=== PATIENT | female | born 1940 | race Caucasian/White ===

== ENCOUNTER 2016-06-17 07:46 | Inpatient (IN) ==
[2016-06-17] MEDS ORDERED: IPRATROPIUM/ALBUTEROL 3 ML AMPUL.NEB NEB ONE (08:10)
[2016-06-17] MEDS ORDERED: methylPREDNISolone SOD SUCC 125 MG/2 ML VIAL IV ONE (08:10)
--- NOTE | 2016-06-17 08:15 | Emergency Department Note ---
General Adult HPI - General Chief complaint: Shortness of Breath/Dyspnea Stated complaint: confusion, SOB Time Seen by Provider: 06/17/16 07:58 Source: patient Mode of arrival: EMS Limitations: altered mental status - History of Present Illness HPI Narrative: 76-year-old female with a historyof cold like symptoms. In by ambulance because she was hallucinating this morning she started seeing bugs on the grace. She's been seen by Liliane Solano for dizziness over the past month and has had CTs referral to the life assurance representative. Patient herself denies any signs or symptoms. She does have COPD. And technology administrator arrived, her sats were at 82%. O2 it went back up to 98%. She states that she does have COPD she is always short of breath. Does not notice anything different.. She complains of slight cough. The patient is afebrile. Having some wheezing. 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 Possible subclavian steal her. This was performed on 05/28 - Related Data Home Medications Medication Instructions Recorded Confirmed qkbbixqx-pnb-sztmd acid 0.4 1 tab PO DAILY 04/30/15 06/17/16 mg-lycopene 300 mcg-lutein 250 mcg tablet multivit with 1 tab PO QDAY tab 05/22/15 06/17/16 bezhtazj-cxkw-QG-lutein 8 mg iron-400 mcg-300 mcg tablet Propranolol [Inderal] 30 mg PO BID 06/17/16 06/17/16 Previous Rx's Medication Instructions Recorded aspirin 81 mg tablet,delayed 81 mg PO QDAY #30 tab 05/22/15 release beclomethasone dipropionate 80 160 mcg INHALATION BID #8.7 g 12/05/15 mcg/actuation aerosol inhaler gabapentin 400 mg capsule 400 mg PO TID #90 cap 04/03/16 diclofenac sodium 75 mg 75 mg PO BID #60 tab 04/23/16 tablet,delayed release potassium chloride ER 10 mEq 10 meq PO BID #60 cap 04/23/16 capsule,extended release torsemide 20 mg tablet 10 mg PO BID 30 Days 05/06/16 atorvastatin 20 mg tablet 20 mg PO QDAY #30 tab 05/21/16 Allergies Allergy/AdvReac Type Severity Reaction Status Date / Time cetirizine Allergy Unknown itching Verified 05/09/16 10:59 bee stings Allergy Unknown Anaphylaxis Uncoded 05/09/16 10:59 codeine sulfate Allergy Unknown Dizziness Uncoded 05/09/16 10:59 trees Allergy Unknown Sneezing Uncoded 05/09/16 10:59 wine Allergy Unknown Anaphylaxis Uncoded 05/09/16 10:59 Review of Systems Constitutional: Denies: fever, chills Eyes: Denies: eye pain ENT ED: Denies: ear pain Cardiovascular: Denies: chest pain Respiratory: Reports: cough, wheezes Gastrointestinal: Denies: abdominal pain Genitourinary: Denies: urgency Musculoskeletal: Denies: back pain Integumentary: Denies: rash Neurological: Denies: headache Psychiatric: Denies: anxiety Endocrine: Denies: fatigue Hematological/Lymphatic: Denies: easy bleeding Allergic/Immunologic: Denies: facial swelling Past Medical History - Past Medical History Medical history: Reports: other (Hyperlipidemia, PACs, lipidemia, retention, 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 low oxygen saturation with activity urinary incontinence) Surgical history ED: Reports: carotid endarterectomy (Appendectomy, cataract, gallbladder, splenectomy, bilateral salpingo-oophorectomy, shoulder surgery), other Family history: Reports: diabetes (father, mother), other family history ( glaucoma. Father, brother) - Social History smoking status: Former smoker Alcohol use: Reports: Rarely Drug use: Reports: none Physical Exam - General Limitations: altered mental status General appearance: alert - Head Head exam: atraumatic, normocephalic - Eye Eye exam: Present: normal appearance, PERRL - ENT ENT exam: normal exam, normal oropharynx - Neck Neck exam: Present: normal inspection, full ROM - Chest Chest inspection: Present: normal inspection - Respiratory Respiratory exam: Present: wheezes - Cardiovascular Cardiovascular exam: Present: regular rate, normal rhythm - Abdominal Exam Abdominal exam: Present: soft. Absent: distention, tenderness - Extremities Exam Extremities exam: Present: normal inspection, full ROM - Back Exam Back exam: Present: normal inspection, full ROM - Neurological Exam Neurological exam: Present: alert, CN II-XII intact - Psychiatric Psychiatric exam: Present: normal affect Course Vital Signs Temperature 97.8 F 06/17/16 07:52 Pulse Rate 93 H 06/17/16 07:52 Respiratory Rate 20 06/17/16 07:52 Blood Pressure 102/83 06/17/16 07:52 Pulse Oximetry (%) 93 06/17/16 07:52 Temperature 97.8 F 06/17/16 07:52 Pulse Rate 73 06/17/16 09:13 Respiratory Rate 20 06/17/16 09:13 Blood Pressure 103/88 06/17/16 09:13 Pulse Oximetry (%) 96 06/17/16 09:13 Medical Decision Making - MDM Narrative Medical decision making narrative: Patient's x-rays reveal restrictive lung disease secondary to her scoliosis. Negra does not use her O2, which she does have at home when she moves about it she runs in the 90s with O2. Dizziness. Workup revealed she is a 75% obstruction leading to subclavian steal . She was referred to Dr. Joy. Patient states she is unaware of this referral. [facility] office has been contacted and they are veriying the referral, patient is transferred to the care of Dr. Boni brooks at 03 07. - Lab Data Result diagrams: 06/17/16 08:15 06/17/16 08:15 Lab Results 06/17/16 06/17/16 Range/Units 08:15 08:15 WBC 6.6 (4.5-11.0) K/mcL RBC 4.19 (4.00-5.20) M/mcL Hgb 12.2 (12.0-15.0) g/dL Hct 38.4 (36.0-48.0) % POC Hct 40.0 (36.0-48.0) % MCV 91.7 (80.0-100.0) fL MCH 29.1 (26.0-34.0) pg MCHC 31.7 (31.0-36.0) g/dL RDW 14.2 (11.5-14.5) % Plt Count 289 (140-440) K/mcL MPV 7.8 (7.4-10.4) fL Gran % 62.3 (38.0-78.0) % Lymph % (Auto) 21.1 (15.5-49.0) % [place] % (Auto) 9.5 H (1.0-9.0) % Eos % (Auto) 6.5 (0.0-7.0) % Baso % (Auto) 0.6 (0.0-2.0) % Gran # 4.1 (1.8-8.0) K/mcL Lymph # 1.4 L (1.5-4.8) K/mcL [place] # 0.6 (0.1-0.9) K/mcL Eos # 0.4 (0.0-0.7) K/mcL Baso # 0 (0.0-0.3) K/mcL POC Sodium 144 (133-145) mmol/L Sodium 145 (133-145) mmol/L POC Potassium 3.5 (3.3-5.1) mmol/L Potassium 3.7 (3.3-5.1) mmol/L POC Chloride 98 (96-108) mmol/L Chloride 102 (96-108) mmol/L Carbon Dioxide 32 H (22-30) mmol/L POC Total CO2 33 H (22-30) mmol/L Anion Gap 11.0 (8-16) POC BUN 16 (8-23) mg/dl BUN 15 (8-23) mg/dl Creatinine 0.9 (0.6-1.1) mg/dl POC Creatinine 0.9 (0.6-1.1) mg/dl GFR Calculation 62 Glucose 101 (70-105) mg/dL POC Glucose 100 (70-105) mg/dL Calcium 9.1 (8.6-10.4) mg/dl POC WB Ioniz Calcium 1.18 (1.16-1.32) mmol/L Total Bilirubin 0.2 (0.0-1.0) mg/dL AST 21 (0-37) U/l ALT 17 (0-40) U/l Alkaline Phosphatase 108 (39-117) U/L NT-Pro-B Natriuret Pep 779.8 H (0-450) pg/ml Total Protein 6.7 (5.9-8.4) gm/dL Albumin 3.7 (3.2-5.2) gm/dL Globulin 3.0 (2.2-3.7) gm/dL Albumin/Globulin Ratio 1.2 (1.0-2.3) Disposition Condition: Good Referrals: Liliane Solano, DNP, CASING OPERATOR [Primary Care Provider] -
[2016-06-17 08:56] LABS: Basophils # (Auto) 0 K/mcL (0.0-0.3); Basophils % (Auto) 0.6 % (0.0-2.0); Eosinophils # (Auto) 0.4 K/mcL (0.0-0.7); Eosinophils % (Auto) 6.5 % (0.0-7.0); Granulocytes % (Auto) 62.3 % (38.0-78.0); Lymphocytes # (Auto) 1.4 K/mcL (1.5-4.8); Lymphocytes % (Auto) 21.1 % (15.5-49.0); Mean Cell Volume 91.7 fL (80.0-100.0); Mean Corpuscular HGB Conc 31.7 g/dL (31.0-36.0); Mean Corpuscular Hemoglobin 29.1 pg (26.0-34.0); Monocytes # (Auto) 0.6 K/mcL (0.1-0.9); Monocytes % (Auto) 9.5 % (1.0-9.0); Platelet Count 289 K/mcL (140-440); RBC 4.19 M/mcL (4.00-5.20); Red Cell Distribution Width 14.2 % (11.5-14.5)
[2016-06-17 09:18] LABS: ALT/SGPT 17 U/l (0-40); Albumin 3.7 gm/dL (3.2-5.2); Albumin/Globulin Ratio 1.2 (1.0-2.3); Alkaline Phosphatase 108 U/L (39-117); Blood Urea Nitrogen 15 mg/dl (8-23); proBNP 779.8 pg/ml (0-450)
--- NOTE | 2016-06-17 09:33 | XRay Report ---
HISTORY: Reason for Exam:CHEST PAIN FINDINGS: The thorax is severely distorted by a severe dextroscoliotic curvature. This is a chronic stable finding. The heart is mildly enlarged but magnified by portable AP technique. The heart has enlarged since prior exam done on 11/21/15. There may be a small infiltrate in left lower lobe, behind the left heart border. Right lung is grossly clear and the left upper lobe is normal. No pleural effusion is present and there is no pulmonary vascular congestion. IMPRESSION: Mild cardiomegaly Possible small left lower lobe infiltrate Interpreted and Authenticated by: Nicholas Griffin 06/17/16
[2016-06-17 09:50] LABS: Appearance,Urine CLEAR; Bilirubin,Urine NEG (NEG); Color,Urine STRAW; Glucose,Urine (UA) NEGATIVE (NEG); Leukocyte Esterase,Urine NEG /uL (NEG); Nitrate,Urine NEG (NEG); Protein,Urine NEG (NEG); Specific Gravity,Urine 1.006 (1.000-1.035); Urine Blood NEG mg/dL (<0.03); Urobilinogen,Urine NEG (NEG)
[2016-06-17] MEDS ORDERED: LEVOFLOXACIN 500 MG/100 ML BAG IV ONE (12:11)
--- NOTE | 2016-06-17 13:40 | Emergency Department Note ---
General Adult HPI - General Chief complaint: Shortness of Breath/Dyspnea Stated complaint: confusion, SOB Time Seen by Provider: 06/17/16 07:58 Source: patient Mode of arrival: EMS Limitations: altered mental status - Related Data Home Medications Medication Instructions Recorded Confirmed zplwyyte-xnr-yhtxa acid 0.4 1 tab PO DAILY 04/30/15 06/17/16 mg-lycopene 300 mcg-lutein 250 mcg tablet multivit with 1 tab PO QDAY tab 05/22/15 06/17/16 cmktdcax-pjzs-DK-lutein 8 mg iron-400 mcg-300 mcg tablet Propranolol [Inderal] 30 mg PO BID 06/17/16 06/17/16 Previous Rx's Medication Instructions Recorded aspirin 81 mg tablet,delayed 81 mg PO QDAY #30 tab 05/22/15 release beclomethasone dipropionate 80 160 mcg INHALATION BID #8.7 g 12/05/15 mcg/actuation aerosol inhaler gabapentin 400 mg capsule 400 mg PO TID #90 cap 04/03/16 diclofenac sodium 75 mg 75 mg PO BID #60 tab 04/23/16 tablet,delayed release potassium chloride ER 10 mEq 10 meq PO BID #60 cap 04/23/16 capsule,extended release torsemide 20 mg tablet 10 mg PO BID 30 Days 05/06/16 atorvastatin 20 mg tablet 20 mg PO QDAY #30 tab 05/21/16 Allergies Allergy/AdvReac Type Severity Reaction Status Date / Time cetirizine Allergy Unknown itching Verified 05/09/16 10:59 bee stings Allergy Unknown Anaphylaxis Uncoded 05/09/16 10:59 codeine sulfate Allergy Unknown Dizziness Uncoded 05/09/16 10:59 trees Allergy Unknown Sneezing Uncoded 05/09/16 10:59 wine Allergy Unknown Anaphylaxis Uncoded 05/09/16 10:59 Review of Systems Constitutional: Denies: fever, chills Eyes: Denies: eye pain ENT ED: Denies: ear pain Cardiovascular: Denies: chest pain Respiratory: Reports: cough, wheezes Gastrointestinal: Denies: abdominal pain Genitourinary: Denies: urgency Musculoskeletal: Denies: back pain Integumentary: Denies: rash Neurological: Denies: headache Psychiatric: Denies: anxiety Endocrine: Denies: fatigue Hematological/Lymphatic: Denies: easy bleeding Allergic/Immunologic: Denies: facial swelling Past Medical History - Past Medical History Medical history: Reports: other (Hyperlipidemia, PACs, lipidemia, retention, 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 low oxygen saturation with activity urinary incontinence) Surgical history ED: Reports: carotid endarterectomy (Appendectomy, cataract, gallbladder, splenectomy, bilateral salpingo-oophorectomy, shoulder surgery), other - Social History Alcohol use: Reports: Rarely Drug use: Reports: none Physical Exam - General Limitations: altered mental status General appearance: alert Course Vital Signs Temperature 97.8 F 06/17/16 07:52 Pulse Rate 93 H 06/17/16 07:52 Respiratory Rate 20 06/17/16 07:52 Blood Pressure 102/83 06/17/16 07:52 Pulse Oximetry (%) 93 06/17/16 07:52 Temperature 97.8 F 06/17/16 07:52 Pulse Rate 76 06/17/16 12:47 Respiratory Rate 21 06/17/16 12:47 Blood Pressure 120/106 06/17/16 12:47 Pulse Oximetry (%) 95 06/17/16 12:47 Medical Decision Making - [facility] Narrative Medical decision making narrative: I discussed this case with who thinks patient could be admitted here for pneumonia in and see him later for the left subclavian stenosis. - Lab Data Lab results reviewed: Yes I reviewed the patient's lab results. Result diagrams: 06/17/16 08:15 06/17/16 08:15 Lab Results 06/17/16 06/17/16 06/17/16 Range/Units 08:15 08:15 09:07 WBC 6.6 (4.5-11.0) K/mcL RBC 4.19 (4.00-5.20) M/mcL Hgb 12.2 (12.0-15.0) g/dL Hct 38.4 (36.0-48.0) % POC Hct 40.0 (36.0-48.0) % MCV 91.7 (80.0-100.0) fL MCH 29.1 (26.0-34.0) pg MCHC 31.7 (31.0-36.0) g/dL RDW 14.2 (11.5-14.5) % Plt Count 289 (140-440) K/mcL MPV 7.8 (7.4-10.4) fL Gran % 62.3 (38.0-78.0) % Lymph % (Auto) 21.1 (15.5-49.0) % [place] % (Auto) 9.5 H (1.0-9.0) % Eos % (Auto) 6.5 (0.0-7.0) % Baso % (Auto) 0.6 (0.0-2.0) % Gran # 4.1 (1.8-8.0) K/mcL Lymph # 1.4 L (1.5-4.8) K/mcL [place] # 0.6 (0.1-0.9) K/mcL Eos # 0.4 (0.0-0.7) K/mcL Baso # 0 (0.0-0.3) K/mcL VBG Lactic Acid (0.5-2.2) mmol/L POC Sodium 144 (133-145) mmol/L Sodium 145 (133-145) mmol/L POC Potassium 3.5 (3.3-5.1) mmol/L Potassium 3.7 (3.3-5.1) mmol/L POC Chloride 98 (96-108) mmol/L Chloride 102 (96-108) mmol/L Carbon Dioxide 32 H (22-30) mmol/L POC Total CO2 33 H (22-30) mmol/L Anion Gap 11.0 (8-16) POC BUN 16 (8-23) mg/dl BUN 15 (8-23) mg/dl Creatinine 0.9 (0.6-1.1) mg/dl POC Creatinine 0.9 (0.6-1.1) mg/dl GFR Calculation 62 Glucose 101 (70-105) mg/dL POC Glucose 100 (70-105) mg/dL Calcium 9.1 (8.6-10.4) mg/dl POC WB Ioniz Calcium 1.18 (1.16-1.32) mmol/L Total Bilirubin 0.2 (0.0-1.0) mg/dL AST 21 (0-37) U/l ALT 17 (0-40) U/l Alkaline Phosphatase 108 (39-117) U/L NT-Pro-B Natriuret Pep 779.8 H (0-450) pg/ml Total Protein 6.7 (5.9-8.4) gm/dL Albumin 3.7 (3.2-5.2) gm/dL Globulin 3.0 (2.2-3.7) gm/dL Albumin/Globulin Ratio 1.2 (1.0-2.3) Urine Color Straw Urine Appearance Clear Urine pH 6.0 (5.0-9.0) Ur Specific [place] 1.006 (1.000-1.035) Urine Protein Neg (NEG) mg/dL Urine Glucose (UA) Negative (NEG) mg/dL Urine Ketones Neg (NEG) mg/dL Urine Occult Blood Neg (<0.03) mg/dL Urine Nitrate Neg (NEG) Urine Bilirubin Neg (NEG) mg/dL Urine Urobilinogen Neg (NEG) mg/dL Ur Leukocyte Esterase Neg (NEG) /uL Ur Culture Indicated? No 06/17/16 Range/Units 09:46 WBC (4.5-11.0) K/mcL RBC (4.00-5.20) M/mcL Hgb (12.0-15.0) g/dL Hct (36.0-48.0) % POC Hct (36.0-48.0) % MCV (80.0-100.0) fL MCH (26.0-34.0) pg MCHC (31.0-36.0) g/dL RDW (11.5-14.5) % Plt Count (140-440) K/mcL MPV (7.4-10.4) fL Gran % (38.0-78.0) % Lymph % (Auto) (15.5-49.0) % [place] % (Auto) (1.0-9.0) % Eos % (Auto) (0.0-7.0) % Baso % (Auto) (0.0-2.0) % Gran # (1.8-8.0) K/mcL Lymph # (1.5-4.8) K/mcL [place] # (0.1-0.9) K/mcL Eos # (0.0-0.7) K/mcL Baso # (0.0-0.3) K/mcL VBG Lactic Acid 0.7 (0.5-2.2) mmol/L POC Sodium (133-145) mmol/L Sodium (133-145) mmol/L POC Potassium (3.3-5.1) mmol/L Potassium (3.3-5.1) mmol/L POC Chloride (96-108) mmol/L Chloride (96-108) mmol/L Carbon Dioxide (22-30) mmol/L POC Total CO2 (22-30) mmol/L Anion Gap (8-16) POC BUN (8-23) mg/dl BUN (8-23) mg/dl Creatinine (0.6-1.1) mg/dl POC Creatinine (0.6-1.1) mg/dl GFR Calculation Glucose (70-105) mg/dL POC Glucose (70-105) mg/dL Calcium (8.6-10.4) mg/dl POC WB Ioniz Calcium (1.16-1.32) mmol/L Total Bilirubin (0.0-1.0) mg/dL AST (0-37) U/l ALT (0-40) U/l Alkaline Phosphatase (39-117) U/L NT-Pro-B Natriuret Pep (0-450) pg/ml Total Protein (5.9-8.4) gm/dL Albumin (3.2-5.2) gm/dL Globulin (2.2-3.7) gm/dL Albumin/Globulin Ratio (1.0-2.3) Urine Color Urine Appearance Urine pH (5.0-9.0) Ur Specific [place] (1.000-1.035) Urine Protein (NEG) mg/dL Urine Glucose (UA) (NEG) mg/dL Urine Ketones (NEG) mg/dL Urine Occult Blood (<0.03) mg/dL Urine Nitrate (NEG) Urine Bilirubin (NEG) mg/dL Urine Urobilinogen (NEG) mg/dL Ur Leukocyte Esterase (NEG) /uL Ur Culture Indicated? - Radiology Data Radiology results reviewed: Yes I reviewed the patient's radiology results. ( radiologist thinks she may have a left lower lobe infiltrate.) Disposition Clinical Impression: Community acquired pneumonia Disposition: Xfer As Outpt/Obs ([facility]) Condition: Good Additional Instructions: Follow up with Dr. Joy tomorrow at 3:00pm. Immediate family should be there and bring all medication bottles in the original prescription bottles. Referrals: Liliane Solano, [place], STOCK RANCH SUPERVISOR [Primary Care Provider] - Time of Disposition: 13:40
--- NOTE | 2016-06-17 14:54 | Internal Med History&Physical ---
Medical - H&P: HPI Patient information: Note initiated : 06/17/16 at 2:45 pm Service Date, if different from initiated Date: [] Patient: Alice Maradiaga 76 y/o F admitted on for Confusion, SOB. Chief Complaint: [] Chief complaint: Altered Mental Status/ Cough History of present illness: Ms. 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 History given by her daughters and the patient. The patient was not feeling well yesterday, cough x 1 day, yellowish greenish sputum, no fever or chills, not sure if any sick contacts, She thought her allergies were kicking in and therefore she got some anti histaminics and took some of that, she also supposedly too some medications from her significant other for cough. Initially she noted she took 4 25mg diphenhydramine in this morning, and 2 afternoon. later she noted she took 2 in AM and 2 in PM. This AM the patient was hallucinating, and seeing things, she was seeing strangers in her house, and she could not speak with them but they seemed to walk behind her. She called 911 for same. The patient therefore ended up in the Er. The patient in the ER underwent labs which were unremarkable, X ray chest was suggestive of left lung pna, and she was requiring 4 L oxygen to maintain her oxygenation >90, (she does not use oxygen at home). She was therefore admitted to the hospital for further management. - Constitutional Constitutional: Present: frequent falls. Absent: chills, fever(s) - EENT Eyes: Present: other visual disturbances. Absent: loss of vision Nose, mouth and throat: Present: dizziness. Absent: abnormal hearing, disequilibrium - Cardiovascular Cardiovascular: Absent: chest pain, chest pain at rest, palpatations - Respiratory Respiratory: Present: cough, excessive phlegm production, change in phlegm color. Absent: dyspnea on exertion, wheezing, chest congestion - Gastrointestinal Gastrointestinal: Absent: abdominal pain, nausea, vomiting - Genitourinary Genitourinary: Absent: hematuria, urinary hesitancy, urinary incontinence, urinary urgency - Musculoskeletal Musculoskeletal: Present: back pain - Integumentary Integumentary: Absent: unusual bruising, wounds - Neurological Neurological: Present: confusion, dizziness. Absent: focal weakness, frequent falls, headache(s), syncope, vertigo - Psychiatric Psychiatric: Present: behavioral changes, visual hallucinations - Endocrine Endocrine: Absent: polydipsia, polyphagia, polyuria Medical - H&P: PMH Medical history: Medical History Community acquired pneumonia (Acute) Abnormal breast exam (Acute) Irregular heart rhythm (Acute) Low oxygen saturation (Acute) Allergic rhinitis (Chronic) Back pain (Chronic) Diverticulosis of colon (Chronic) History of ECG (Chronic 05/22/15) Hyperlipidemia (Chronic) Hypertension, essential (Chronic) Lung disease (Chronic) Mixed incontinence, 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 Medical - H&P: Meds Home Medications Medication Instructions Recorded Confirmed Type cooaepwu-erz-woqpp acid 0.4 1 tab PO DAILY 04/30/15 06/17/16 History mg-lycopene 300 mcg-lutein 250 mcg tablet multivit with 1 tab PO QDAY tab 05/22/15 06/17/16 History lueanjbi-fyng-TI-lutein 8 mg iron-400 mcg-300 mcg tablet Propranolol [Inderal] 30 mg PO BID 06/17/16 06/17/16 History Allergies Allergy/AdvReac Type Severity Reaction Status Date / Time cetirizine Allergy Unknown itching Verified 05/09/16 10:59 bee stings Allergy Unknown Anaphylaxis Uncoded 05/09/16 10:59 codeine sulfate Allergy Unknown Dizziness Uncoded 05/09/16 10:59 trees Allergy Unknown Sneezing Uncoded 05/09/16 10:59 wine Allergy Unknown Anaphylaxis Uncoded 05/09/16 10:59 Medical - H&P: Exam - Constitutional Vitals: Temp Pulse Resp BP Pulse Ox 97.8 F 76 16 96/72 97 06/17/16 07:52 06/17/16 13:54 06/17/16 13:54 06/17/16 13:54 06/17/16 13:54 General appearance: average body habitus, cooperative, no acute distress - Head Head exam: Present: atraumatic, normal inspection, normocephalic - Eye Eye exam: Present: EOMI, normal appearance, PERRL. Absent: conjunctival injection, periorbital swelling, periorbital tenderness, scleral icterus - Neck Neck exam: Present: normal inspection - Respiratory Respiratory exam: Present: normal respiratory exam. Absent: accessory muscle use, rhonchi, stridor, wheezes (scoliosis severe ) - Cardiovascular Cardiovascular exam: Present: normal rate and rhythm, +S1, +S2. Absent: gallop , rubs - GI/Abdominal GI/Abdominal exam: Present: normal bowel sounds, soft. Absent: rigid, tenderness - Neurological Exam Neurological exam: Present: alert, CN II-XII intact, oriented X3. Absent: motor sensory deficit - Expanded Psychiatric Exam Focused psych exam: Present: restlessness - Skin Skin exam: Present: warm. Absent: rash Medical - H&P: Reslt - Labs CBC & Chem 7: 06/17/16 08:15 06/17/16 08:15 Labs: Short CBC 06/17/16 Range/Units 08:15 WBC 6.6 (4.5-11.0) K/mcL Hgb 12.2 (12.0-15.0) g/dL Hct 38.4 (36.0-48.0) % Plt Count 289 (140-440) K/mcL BMP 06/17/16 08:15 Sodium 145 Potassium 3.7 Chloride 102 Carbon Dioxide 32 H BUN 15 Creatinine 0.9 Glucose 101 Calcium 9.1 Liver Function 06/17/16 Range/Units 08:15 Total Bilirubin 0.2 (0.0-1.0) mg/dL AST 21 (0-37) U/l ALT 17 (0-40) U/l Alkaline Phosphatase 108 (39-117) U/L Albumin 3.7 (3.2-5.2) gm/dL Urine 06/17/16 Range/Units 09:07 Urine Color Straw Urine Appearance Clear Urine pH 6.0 (5.0-9.0) Ur Specific [place] 1.006 (1.000-1.035) Urine Protein Neg (NEG) mg/dL Urine Glucose (UA) Negative (NEG) mg/dL - EKG Data -: EKG Reviewed by Myself (sinus, non specific ST wave changes, no significant change since 05/22) - EKG Data When compared to previous EKG: there is no significant change Medical - H&P: A/P (1) Hallucination, visual Current visit: Yes Status: Acute hallucinations/ confusion, etiology multifactorial for now likely related to pneumonia, but could also be taking excessive cough medication and diphenhydramine. for now will monitor CT head. Urine toxicology. not a heavy etoh consumer. (2) Acute respiratory failure with hypoxia Current visit: Yes Status: Acute due to pna, her socoliosis causes severe restrictive disease, on oxygen supplementation. Presently on 4 L nc does not use oxygen at home Duonebs q 4 hrs Incentive spirometery (3) Subclavian steal syndrome Current visit: Yes Status: Acute pt has dizziness, for which she is being worked up left subclavian steal is a likely etiology ? supposed to be seen by IR tomorrow for stenting? (4) Community acquired pneumonia Current visit: Yes Status: Acute IV rocephin and zithromax monitor on tele blood cultures sent await same Diet regular, cardiac DVT - heparin sq Plan to resume all home medications. Hold propranolol and torsemide given low bp in the ER. (5) Dizziness Current visit: No Status: Acute due to subclavian steal
[2016-06-17] MEDS ORDERED: IOPAMIDOL 100 ML BOTTLE IJ ONE (15:32)
[2016-06-17 15:55] LABS: Amphetamine Screen,Urine NONE DETECTED (NONDETECTED); Benzodiazepines Screen,Urine NONE DETECTED (NONDETECTED); Cocaine Screen,Urine NONE DETECTED (NONDETECTED); Opiate Screen,Urine NONE DETECTED (NONDETECTED)
[2016-06-17] MEDS ORDERED: ONDANSETRON 4 MG/2 ML VIAL IV PRN (16:04)
[2016-06-17] MEDS ORDERED: FLEETS ADULT ENEMA PR PRN (16:04)
[2016-06-17] MEDS ORDERED: MAGNESIUM HYDROXIDE 30 ML ORAL.SUSP PO PRN (16:04)
[2016-06-17] MEDS ORDERED: BISACODYL 5 MG TABLET PO PRN (16:04)
[2016-06-17] MEDS ORDERED: NALOXONE HCL 0.4 MG/ML VIAL IV PRN (16:04)
[2016-06-17] MEDS: cefTRIAXone 1 GM in DEXTROSE 5% IN WATER 50 ML IV SCH (17:00)
[2016-06-17] MEDS: AZITHROMYCIN 500 MG in DEXTROSE 5% IN WATER 250 ML IV SCH (18:00)
--- NOTE | 2016-06-17 18:00 | Cat Scan Report ---
History: Increasing confusion Findings: The brain was imaged without contrast at 2.5 mm intervals. There is mild generalized cerebral atrophy. The lateral and third ventricles are mildly dilated. Fourth ventricle is normal in size. There is generalized atrophy, predominantly involving the frontal and temporal lobes. The ventricular dilatation is somewhat out of proportion to the underlying atrophy. New the foramen of [place]ick[place] in the left lateral ventricle there is a 2 x 4 mm calcification along the anterior border left thalamus. This is not causing obstruction of the lateral ventricle. Calcification is a chronic stable finding and probably incidental. There is no intracranial hemorrhage, edema or mass effect. No abnormal extra-axial fluid collection is present. There is mucosal thickening along the grace of many of the ethmoid air cells bilaterally due to sinusitis. Impression: Borderline hydrocephalus Frontal and temporal lobe atrophy Ethmoid sinusitis Interpreted and Authenticated by: Nicholas Griffin 06/17/16
[2016-06-17] MEDS: 0.9 % SODIUM CHLORIDE 1,000 ML IV SCH (18:51)
[2016-06-17] MEDS: IPRATROPIUM/ALBUTEROL 3 ML AMPUL.NEB NEB SCH ×3 (19:07→22:38)
[2016-06-17] MEDS: POTASSIUM CHLORIDE 10 MEQ TABLET PO SCH (20:01)
[2016-06-17] MEDS: GABAPENTIN 300 MG CAPSULE PO SCH ×2 (20:01→20:10)
[2016-06-17] MEDS: ACETAMINOPHEN 325 MG TABLET PO PRN (20:06)
[2016-06-17] MEDS: HEPARIN 5,000 UNIT/ML VIAL SQ SCH (20:06)
[2016-06-17] MEDS: BECLOMETHASONE DIPROPIONATE 160 MCG INH SCH (20:07)
[2016-06-17] MEDS ORDERED: GABAPENTIN 100 MG CAPSULE PO ONE (20:21)
[2016-06-18] MEDS ORDERED: 0.9 % SODIUM CHLORIDE 500 ML IV ONE (00:20)
[2016-06-18] MEDS ORDERED: POTASSIUM CHLORIDE 20 MEQ, MAGNESIUM SULFATE 16.24 MEQ, THIAMINE 100 MG, MVI, ADULT NO.... IV SCH (02:15)
[2016-06-18] MEDS: 0.9 % SODIUM CHLORIDE 1,000 ML IV SCH (02:36)
[2016-06-18] MEDS: IPRATROPIUM/ALBUTEROL 3 ML AMPUL.NEB NEB SCH ×6 (02:36→22:46)
[2016-06-18] MEDS: ACETAMINOPHEN 325 MG TABLET PO PRN ×2 (02:41→17:25)
[2016-06-18] MEDS ORDERED: POTASSIUM CHLORIDE 20 MEQ/10 ML VIAL IV ONE (02:43)
[2016-06-18] MEDS ORDERED: MAGNESIUM SULFATE 8.12 MEQ/2 ML VIAL ONE (02:43)
[2016-06-18 06:33] LABS: Mean Cell Volume 90.9 fL (80.0-100.0); Mean Corpuscular HGB Conc 32.1 g/dL (31.0-36.0); Mean Corpuscular Hemoglobin 29.2 pg (26.0-34.0); Platelet Count 243 K/mcL (140-440); RBC 4.04 M/mcL (4.00-5.20); Red Cell Distribution Width 13.7 % (11.5-14.5)
[2016-06-18 06:52] LABS: ALT/SGPT 14 U/l (0-40); Albumin 3.4 gm/dL (3.2-5.2); Albumin/Globulin Ratio 1.5 (1.0-2.3); Alkaline Phosphatase 89 U/L (39-117); Bilirubin,Direct < 0.2 mg/dL (0.0-0.3); Blood Urea Nitrogen 9 mg/dl (8-23); Gamma Glutamyl Transpeptidase 8 U/L (5-36); Magnesium 2.4 mg/dL (1.6-2.5); Phosphorous 3.2 mg/dL (2.7-4.5); Uric Acid 3.3 mg/dL (2.5-8.0)
[2016-06-18] MEDS: HEPARIN 5,000 UNIT/ML VIAL SQ SCH ×2 (07:39→20:19)
[2016-06-18] MEDS: GABAPENTIN 400 MG CAPSULE PO SCH ×3 (07:39→20:19)
[2016-06-18] MEDS: ASPIRIN 81 MG TAB.CHEW PO SCH (07:39)
[2016-06-18] MEDS: cefTRIAXone 1 GM in DEXTROSE 5% IN WATER 50 ML IV SCH (08:16)
[2016-06-18 08:20] LABS: Lymphocytes % 23 % (15-49); Monocytes % (Manual) 4 % (1-9); Platelet Estimate NORMAL (NORMAL); RBC Morphology ABNORMAL (NORMAL); Segmented Neutrophils % 72 % (38-78)
--- NOTE | 2016-06-18 09:29 | Internal Med Progress Note ---
Medical - PN: Subj Patient information: Note initiated : 06/18/16 at 9:26 am Service Date, if different from initiated Date: [] Patient: Alice Maradiaga 76 y/o F admitted on 06/17/16 for Confusion, SOB. Chief Complaint: [] Interval history: The patient seen examined this AM, Sitting comfortably in he chair, Denies any acute issues, but looks better than y esterday She is still hallucinating, this AM noted have seen crawling bugs in the ceiling , when she woke up, but later they were gone, no other auditory hallucinations Overnight she was hypotensive, with normal HR, the patient also remained asymptomatic, during this episodes, This am too she was hypotensive while sitting in the chair, asymptomatic. She received 500 cc bolus, and a banana bag is running to treat any underlying thiamine def. I have reviwed the CT head, which shows some borderline hydrocephalus, storm atrophy, Microbiology is negative Utox is negative Labs unremakrable. Pertinent ROS: Denies chest pain, denies palpitations, dizziness or syncope no cough or shortness of breath no abdominal pain, nausea or vomiting. still has hallucinations, but no delusions. - Constitutional Vitals: Vital Signs Temp Pulse Resp BP Pulse Ox 97.3 F L 84 18 72/54 96 06/18/16 03:41 06/18/16 07:18 06/18/16 07:18 06/18/16 05:55 06/18/16 07:25 Period Temp Pulse Resp BP Sys/Bess Pulse Ox Last 24 Hr 97.3 F-98.9 F 76-98 16-20 72-112/53-82 94-98 Intake and Output 06/17/16 06/18/16 06/18/16 21:59 05:59 13:59 Intake Total 450 / 450 1135 / 1135 Output Total 103 / 103 102 / 102 Balance 347 / 347 1033 / 1033 Weight 144 lb 11.2 oz Intake & Output: Intake & Output 06/17/16 06/18/16 06/18/16 21:59 05:59 13:59 Intake Total 450 / 450 1135 / 1135 Output Total 103 / 103 102 / 102 Balance 347 / 347 1033 / 1033 Weight 144 lb 11.2 oz Intake: IV 50 / 50 775 / 775 Sodium Chloride 0.9% / 5 000 ml @ 100 mls/hr IV . Q10H [facility]ARG[facility]ITA Rx#:[id number] Dextrose 5% in Water 50 50 / 50 ml @ 100 mls/hr IV DAILY MARGARITA with Rocephin 1 gm Rx #:[id number] Oral 400 / 400 360 / 360 Output: Void Amount 100 / 100 100 / 100 # of times incontinent of 3 / 3 2 / 2 urine Other: # Voids 1 # Bowel Movements 1 General appearance: cooperative, no acute distress - Head Head exam: Present: atraumatic, normal inspection, normocephalic - Eye Eye exam: Present: PERRL. Absent: periorbital tenderness, scleral icterus - Neck Neck exam: Present: normal inspection - Respiratory Respiratory exam: Present: normal respiratory exam Additional comments: mild wheeze, bibasilar mild crackles. - Cardiovascular Cardiovascular exam: Present: normal rate and rhythm, +S1, +S2, systolic murmur - GI/Abdominal GI/Abdominal exam: Present: normal bowel sounds, soft. Absent: rigid - Neurological Exam Neurological exam: Present: alert, CN II-XII intact, oriented X3. Absent: motor sensory deficit - Psychiatric Psychiatric exam: Absent: agitated, anxious - Skin Skin exam: Present: warm. Absent: rash Medical - PN: Obj Da - Labs CBC & Chem 7: 06/18/16 04:30 06/18/16 04:35 Labs: Abnormal Lab Results 06/18/16 06/18/16 04:35 04:30 Hgb 11.8 L Polychromasia 1+ A Calcium 8.2 L Total Protein 5.6 L Meds: Medications Acetaminophen (Tylenol) 650 mg PO Q6HP PRN PRN Reason: PAIN/FEVER > 101 Last Admin: 06/18/16 02:41 Dose: 650 mg Albuterol/Ipratropium (Duoneb) 3 ml NEB Q4HRT [facility] Last Admin: 06/18/16 07:18 Dose: 3 ml Aspirin (Aspirin) 81 mg PO DAILY [facility] Last Admin: 06/18/16 07:39 Dose: 81 mg Atorvastatin Calcium (Lipitor) 20 mg PO QDAY [facility] Bisacodyl (Dulcolax) 10 mg PO DAILYP PRN PRN Reason: Constipation Gabapentin (Neurontin) 400 mg PO TID [facility] Last Admin: 06/18/16 07:39 Dose: 400 mg Heparin Sodium (Porcine) (Heparin) 5,000 unit SQ Q12 [facility] Last Admin: 06/18/16 07:39 Dose: 5,000 unit Azithromycin 500 mg/ Dextrose 250 mls @ 250 mls/hr IV DAILY [facility] Stop: 06/19/16 09:59 Last Admin: 06/17/16 18:00 Dose: 250 mls/hr Sodium Chloride (Sodium Chloride 0.9%) 1,000 mls @ 100 mls/hr IV .Q10H [facility] Last Admin: 06/18/16 02:36 Dose: 100 mls/hr Ceftriaxone Sodium 1 gm/ (Dextrose) 50 mls @ 100 mls/hr IV DAILY [facility] Last Admin: 06/18/16 08:16 Dose: 100 mls/hr Potassium Chloride 20 meq/Magnesium Sulfate 16.24 meq/Thiamine HCl 100 mg/ Multivitamins/Minerals 10 ml/Sodium Chloride 1,025 mls @ 125 mls/hr IV .Q8H12M [facility] Stop: 06/18/16 10:26 Last Admin: 06/18/16 02:37 Dose: 125 mls/hr Iron Carb/Multivit/[place]/Folic Acid (Multivitamin W/Minerals) 1 tab PO DAILY [facility] Magnesium Hydroxide (Milk Of Magnesia) 30 ml PO DAILYP PRN PRN Reason: Constipation Naloxone HCl (Narcan) 0.1 mg IV Q2MIN PRN PRN Reason: Opiate Reversal Ondansetron HCl (Zofran) 4 mg IV Q4HP PRN PRN Reason: Nausea And Vomiting Beclomethasone (Dipropionate 160 Mcg) 1 dose INH BID [facility] Last Admin: 06/17/16 20:07 Dose: Not Given [facility] Last Admin: 06/17/16 20:01 Dose: Not Given Sodium Biphosphate/Sodium Phosphate (Fleets Adult) 1 dose PA Q3DP PRN PRN Reason: Constipation Medical - PN: A/P - Time Spent With Patient Total time spent is greater than 50% in coordination of care (as documented) at patient's floor/unit and/or counseling patient: (1) Hallucination, visual Status: Acute Assessment and plan: likely from medication use, vs due to infection Improving clinically Patient CT head is negative She has received thiamine, will start on po thiamine too, Continue to monitor Current Visit: Yes (2) Acute respiratory failure with hypoxia Status: Acute Assessment and plan: Still needs oxygen incentive spirometer continue with IV antibiotics for pneumonia. Current Visit: Yes (3) Subclavian steal syndrome Status: Acute Assessment and plan: Patent dizziness due to subclavian steal syndrome. Current Visit: Yes (4) Community acquired pneumonia Status: Acute Assessment and plan: Clinically improving, Treat with IV aBX microbiology neg Current Visit: Yes (5) Hypotension Status: Acute Assessment and plan: Bl;ood pressure noted to be low overnight received some IV fluids On further reviwe this AM it was noted that the bp is been taken on the left arm where she has significant subcliavin steal,/ stenois repeat bp on the right side is normal d/c all iv fluids at this time besides banana bag. Current Visit: No Medical - PN: Qual - Stroke Symptom Onset Unknown: No - VTE Deep Vein Thrombosis/Pulmonary Embolism Present on Admission: No
[2016-06-18] MEDS: AZITHROMYCIN 500 MG in DEXTROSE 5% IN WATER 250 ML IV SCH (09:30)
[2016-06-18] MEDS: MULTIVIT,THER IRON,CA,FA & MIN 1 TABLET PO SCH (10:01)
[2016-06-18] MEDS: POTASSIUM CHLORIDE 10 MEQ TABLET PO SCH ×2 (10:01→17:06)
[2016-06-18 10:06] LABS: Cortisol,AM 4.4 ug/dl (6.2-19.4)
[2016-06-18] MEDS: ATORVASTATIN 20 MG TABLET PO SCH (10:07)
[2016-06-18] MEDS: BECLOMETHASONE DIPROPIONATE 160 MCG INH SCH (10:12)
[2016-06-18] MEDS: BECLOMETHASONE DIPROPIONATE 40MCG INHALER INH SCH ×2 (13:00→20:19)
[2016-06-19] MEDS: ACETAMINOPHEN 325 MG TABLET PO PRN ×3 (00:36→20:34)
[2016-06-19] MEDS: IPRATROPIUM/ALBUTEROL 3 ML AMPUL.NEB NEB SCH ×7 (02:59→23:08)
[2016-06-19 07:02] LABS: Mean Cell Volume 92.4 fL (80.0-100.0); Mean Corpuscular HGB Conc 30.6 g/dL (31.0-36.0); Mean Corpuscular Hemoglobin 28.3 pg (26.0-34.0); Platelet Count 277 K/mcL (140-440); RBC 4.08 M/mcL (4.00-5.20); Red Cell Distribution Width 14.8 % (11.5-14.5)
[2016-06-19 07:28] LABS: ALT/SGPT 14 U/l (0-40); Albumin 3.5 gm/dL (3.2-5.2); Albumin/Globulin Ratio 1.5 (1.0-2.3); Alkaline Phosphatase 91 U/L (39-117); Bilirubin,Direct < 0.2 mg/dL (0.0-0.3); Blood Urea Nitrogen 9 mg/dl (8-23); Gamma Glutamyl Transpeptidase 8 U/L (5-36); Magnesium 2.4 mg/dL (1.6-2.5); Phosphorous 1.7 mg/dL (2.7-4.5); Uric Acid 2.6 mg/dL (2.5-8.0)
[2016-06-19 08:12] LABS: Band Neutrophils % 2 % (0-10); Lymphocytes % 16 % (15-49); Monocytes % (Manual) 1 % (1-9); Platelet Estimate NORMAL (NORMAL); RBC Morphology NORMAL (NORMAL); Segmented Neutrophils % 81 % (38-78)
[2016-06-19] MEDS: AZITHROMYCIN 500 MG in DEXTROSE 5% IN WATER 250 ML IV SCH (08:46)
[2016-06-19] MEDS: cefTRIAXone 1 GM in DEXTROSE 5% IN WATER 50 ML IV SCH (08:46)
--- NOTE | 2016-06-19 08:46 | XRay Report ---
HISTORY: Reason for Exam:shortness of breath FINDINGS: The thorax is severely deformed by the scoliotic curvature. This makes evaluation of lung parenchyma limited. However, there appear to be mild infiltrates in both lung bases. The right lower lobe is becoming more consolidated since 06/17/16. There is been little change in the left lung. Heart may be mildly enlarged. IMPRESSION: Small bibasilar infiltrates, becoming worse on the right side Interpreted and Authenticated by: Nicholas Griffin 06/19/16
[2016-06-19] MEDS: ATORVASTATIN 20 MG TABLET PO SCH (08:55)
[2016-06-19] MEDS: ASPIRIN 81 MG TAB.CHEW PO SCH (08:55)
[2016-06-19] MEDS: MULTIVIT,THER IRON,CA,FA & MIN 1 TABLET PO SCH (08:55)
[2016-06-19] MEDS: POTASSIUM CHLORIDE 10 MEQ TABLET PO SCH ×2 (08:55→18:21)
[2016-06-19] MEDS: HEPARIN 5,000 UNIT/ML VIAL SQ SCH ×2 (08:55→20:33)
[2016-06-19] MEDS: GABAPENTIN 400 MG CAPSULE PO SCH ×3 (08:56→20:35)
[2016-06-19] MEDS: BECLOMETHASONE DIPROPIONATE 40MCG INHALER INH SCH ×2 (08:57→20:37)
[2016-06-19] MEDS ORDERED: VANCOMYCIN PER PHARMACY IV ONE (08:58)
[2016-06-19] MEDS ORDERED: VANCOMYCIN 1,000 MG in 0.9 % SODIUM CHLORIDE 250 ML IV SCH (09:00)
[2016-06-19] MEDS ORDERED: NEUTRA PHOS 1 PACKET PO SCH (09:00)
[2016-06-19] MEDS ORDERED: FUROSEMIDE 20 MG/2 ML VIAL IV ONE (09:03)
[2016-06-19] MEDS: PIPERACILLIN SODIUM/TAZOBACTAM 3.375 GM in DEXTROSE 5% IN WATER 50 ML IV SCH ×3 (09:38→18:21)
[2016-06-19] MEDS ORDERED: methylPREDNISolone SOD SUCC 40 MG/ML VIAL IV SCH (16:45)
--- NOTE | 2016-06-19 16:46 | Event Note ---
Called by nursing to note patient has sudden deterioration in her condition patient has worsening shortness of breath, tachycardia, hypoxia and wheezing. patient evalauted, noted to be tachypoenic, with poor air entry on both lungs. She also ahs chest tightness. Patient likely has copd exacerbation Duonebs stat/ and start on IV steroids patient will likely need bipap given poor air entry and rapid progression of hypoxia, start with setting of 12/6, fio2 40%, get ekg, troponin, myogobin and CT angio to r/o PE. pt is on heparin for DVT prophylasxis. Will reassess soon.
[2016-06-19] MEDS ORDERED: MAGNESIUM SULFATE 2 GM/50 ML BAG IV ONE (17:11)
--- NOTE | 2016-06-19 17:40 | Internal Med Progress Note ---
Medical - PN: Subj Patient information: Note initiated : 06/19/16 at 5:38 pm Service Date, if different from initiated Date: [] Patient: Alice Maradiaga 76 y/o F admitted on 06/17/16 for Confusion, SOB/ Pneumonia. Chief Complaint: [] Interval history: patient seen examined, No acute overnight events, she was doing well this morning, but feeling puffed up, she was short of breath by lying flat on the bed, but sitting up was helping her, no change in her oxygen requirements She denies any chest pains, palpitations, dizziness, headache, abdominal pain, nausae or vomiting. her hallucinations had resolved. given the change in her respiratory status, X ray chest was obtained, which showed worsening infiltrates, the patient antibiotics were changed to vancomycin and zosyn The patient was doing well during the day time, when in evening she had deterioration in her condition she had shortness of breath this pm, with poor air entry, wheezing, tachypnea. The patient also noted chest tightness. her RR was 28-30, Tachycardic to 120, Hypoxic to upto 40% on room air, exam showed poor air entry and storm exp wheezing. EKG done did not show ST elevations, did have t wave flipping in the Ant leads, pt does not endorse chest pains. Troponin is pending, Duonebs given, IV steroids started, IV mag suphage given Pt needing bipap to ventilate, present setting of 18/8, fio2 45%, she is drawing tidal volume of approximately 200-350 at this time. After initiation of bipap she seems to have improved, and is calmer. Given the sudden onset of the symptoms, tachycardia and hypoxia, CTA ordered, results pending. Critical care services rendered, spent 40 mins reviewing chart, managing bipap ventilation, coordinating care. Pertinent ROS: sob and wheezing noted no chest pain or palpitations no dizziness, no headaches. - Constitutional Vitals: Vital Signs Temp Pulse Resp BP Pulse Ox 99.6 F 110 H 24 134/80 88 L 06/19/16 16:00 06/19/16 16:00 06/19/16 16:00 06/19/16 16:00 06/19/16 16:00 Period Temp Pulse Resp BP Sys/Bess Pulse Ox Last 24 Hr 97.7 F-99.6 F 89-110 10-24 92-136/43-80 88-95 Intake and Output 06/19/16 06/19/16 06/19/16 05:59 13:59 21:59 Intake Total 840 / 840 1160 / 1160 250 / 250 Output Total 200 / 200 902 / 902 200 / 200 Balance 640 / 640 258 / 258 50 / 50 Intake & Output: Intake & Output 06/19/16 06/19/16 06/19/16 05:59 13:59 21:59 Intake Total 840 / 840 1160 / 1160 250 / 250 Output Total 200 / 200 902 / 902 200 / 200 Balance 640 / 640 258 / 258 50 / 50 Intake: IV 600 / 600 50 / 50 Dextrose 5% in Water 250 250 / 250 ml @ 250 mls/hr IV DAILY [facility] with Zithromax 500 mg Rx#:[id number] Dextrose 5% in Water 50 50 / 50 50 / 50 ml @ 100 mls/hr IV Q6 [facility] with Zosyn 3.375 gm Rx#: [id number] Sodium Chloride 0.9% 250 250 / 250 ml @ 250 mls/hr IV DAILY [facility] with Vancomycin 1,000 mg Rx#:[id number] Dextrose 5% in Water 50 50 / 50 ml @ 100 mls/hr IV DAILY [facility]ARG[facility] with Rocephin 1 gm Rx #:[id number] Oral 840 / 840 560 / 560 200 / 200 Output: Void Amount 200 / 200 900 / 900 200 / 200 # of times incontinent of 2 / 2 urine Other: # Bowel Movements 1 - Head Head exam: Present: atraumatic, normal inspection - Eye Eye exam: Present: PERRL. Absent: periorbital swelling, periorbital tenderness , scleral icterus - ENT ENT exam: Present: mucous membranes moist - Neck Neck exam: Present: full ROM, normal inspection - Respiratory Additional comments: air entry poor on both sides patient tachypenic storm wheezing. no significant crackles noted. - Cardiovascular Cardiovascular exam: Present: normal rate and rhythm, +S1, +S2, tachycardia - GI/Abdominal GI/Abdominal exam: Present: normal bowel sounds, soft. Absent: rigid, tenderness - Extremities Exam Extremities exam: Present: Foot pink and warm, neurovascular intact - Neurological Exam Neurological exam: Present: alert, CN II-XII intact, oriented X3. Absent: motor sensory deficit - Skin Skin exam: Present: intact, warm. Absent: rash, urticaria Medical - PN: Obj Da - Labs CBC & Chem 7: 06/19/16 04:35 06/19/16 04:35 Labs: Abnormal Lab Results 06/19/16 06/19/16 06/18/16 04:35 04:35 09:10 Hgb 11.6 L MCHC 30.6 L RDW 14.8 H Seg Neutrophils % 81 H Polychromasia Calcium 8.5 L Phosphorus 1.7 L Total Protein Cortisol AM Sample 4.4 L 06/18/16 06/18/16 04:35 04:30 Hgb 11.8 L MCHC RDW Seg Neutrophils % Polychromasia 1+ A Calcium 8.2 L Phosphorus Total Protein 5.6 L Cortisol AM Sample Meds: Medications Acetaminophen (Tylenol) 650 mg PO Q6HP PRN PRN Reason: PAIN/FEVER > 101 Last Admin: 06/19/16 04:24 Dose: 650 mg Albuterol/Ipratropium (Duoneb) 3 ml NEB Q4HRT [facility] Last Admin: 06/19/16 17:13 Dose: 3 ml Aspirin (Aspirin) 81 mg PO DAILY [facility] Last Admin: 06/19/16 08:55 Dose: 81 mg Atorvastatin Calcium (Lipitor) 20 mg PO QDAY [facility] Last Admin: 06/19/16 08:55 Dose: 20 mg Beclomethasone Dipropionate (Qvar 40) 4 puff INH BID [facility] Last Admin: 06/19/16 08:57 Dose: 4 puff Bisacodyl (Dulcolax) 10 mg PO DAILYP PRN PRN Reason: Constipation Gabapentin (Neurontin) 400 mg PO TID [facility] Last Admin: 06/19/16 17:13 Dose: Not Given Heparin Sodium (Porcine) (Heparin) 5,000 unit SQ Q12 [facility] Last Admin: 06/19/16 08:55 Dose: 5,000 unit Piperacillin Sod/Tazobactam (Sod 3.375 gm/ Dextrose) 50 mls @ 100 mls/hr IV Q6 [facility] Last Infusion: 06/19/16 16:59 Dose: Infused Vancomycin HCl 1,000 mg/ (Sodium Chloride) 250 mls @ 250 mls/hr IV DAILY [facility] Last Infusion: 06/19/16 11:33 Dose: Infused Magnesium Sulfate (Magnesium Sulfate) 2 gm in 50 mls @ 50 mls/hr IV ONCE ONE Stop: 06/19/16 18:10 Iron Carb/Multivit/[employer]/Folic Acid (Multivitamin W/Minerals) 1 tab PO DAILY [facility] Last Admin: 06/19/16 08:55 Dose: 1 tab Magnesium Hydroxide (Milk Of Magnesia) 30 ml PO DAILYP PRN PRN Reason: Constipation Methylprednisolone Sodium Succinate (Solu-Medrol) 40 mg IV Q8 [facility] Last Admin: 06/19/16 16:58 Dose: 40 mg Naloxone HCl (Narcan) 0.1 mg IV Q2MIN PRN PRN Reason: Opiate Reversal Ondansetron HCl (Zofran) 4 mg IV Q4HP PRN PRN Reason: Nausea And Vomiting Last Admin: 06/19/16 08:13 Dose: 4 mg Potassium Chloride (Kdur) 10 meq PO BIDCC [facility] Last Admin: 06/19/16 08:55 Dose: 10 meq Potassium/Phosphorus/Sodium (Neutra Phos) 1 packet PO BID [facility] Last Admin: 06/19/16 08:57 Dose: 1 packet Sodium Biphosphate/Sodium Phosphate (Fleets Adult) 1 dose [place] Q3DP PRN PRN Reason: Constipation Medical - PN: A/P - Time Spent With Patient Total time spent is greater than 50% in coordination of care (as documented) at patient's floor/unit and/or counseling patient: (1) Hallucination, visual Status: Acute Assessment and plan: likely from medication use, vs due to infection resolved. Current Visit: Yes (2) Acute respiratory failure with hypoxia Status: Acute Assessment and plan: condition worsened needs bipap to maintain ventillation and oxygenation. Current Visit: Yes (3) Subclavian steal syndrome Status: Acute Assessment and plan: Patent dizziness due to subclavian steal syndrome. Current Visit: Yes (4) Community acquired pneumonia Status: Acute Assessment and plan: worsened on x ray today, and patien, Treat with IV aBX, but changed to vancomycin and zosyn. microbiology neg Current Visit: Yes (5) Hypotension Problem details: in the left arm due to subclavian stenosis. Status: Acute Assessment and plan: Bl;ood pressure due to subclavina stenosis. Current Visit: No (6) COPD with acute exacerbation Status: Acute Assessment and plan: duonebs bipap iv solumedrol on abx Patient will also get CTA to r/o pe Current Visit: Yes - Narrative A/P Narrative: DVT prophylaxis Heparin SQ Diet CArdiac Spent 40 mins rendering critical care services, reviewing chart, labs, radiology , ekg, and managing bipap. Medical - PN: Qual - Stroke Symptom Onset Unknown: No - VTE Deep Vein Thrombosis/Pulmonary Embolism Present on Admission: No
[2016-06-19 17:45] LABS: Myoglobin 37 ng/ml (25-58)
[2016-06-19] MEDS ORDERED: MAGNESIUM HYDROXIDE 30 ML ORAL.SUSP PO PRN (18:23)
[2016-06-19] MEDS ORDERED: FLEETS ADULT ENEMA PR PRN (18:23)
[2016-06-19] MEDS ORDERED: ONDANSETRON 4 MG/2 ML VIAL IV PRN (18:23)
[2016-06-19] MEDS ORDERED: NALOXONE HCL 0.4 MG/ML VIAL IV PRN (18:23)
[2016-06-19] MEDS ORDERED: BISACODYL 5 MG TABLET PO PRN (18:23)
[2016-06-19] MEDS ORDERED: IPRATROPIUM/ALBUTEROL 3 ML AMPUL.NEB NEB ONE ×6 (18:24→21:35)
[2016-06-19] MEDS: 0.9 % SODIUM CHLORIDE 10 ML SYRINGE IV SCH ×2 (19:00→22:20)
[2016-06-19] MEDS: NEUTRA PHOS 1 PACKET PO SCH (20:36)
[2016-06-19] MEDS ORDERED: BECLOMETHASONE DIPROPIONATE 40MCG INHALER INH SCH (21:00)
[2016-06-19] MEDS: methylPREDNISolone SOD SUCC 40 MG/ML VIAL IV SCH (22:05)
[2016-06-20] MEDS: PIPERACILLIN SODIUM/TAZOBACTAM 3.375 GM in DEXTROSE 5% IN WATER 50 ML IV SCH ×4 (00:45→17:44)
[2016-06-20] MEDS ORDERED: LORazepam 2 MG/ML VIAL IV ONE (00:45)
[2016-06-20] MEDS ORDERED: LORazepam 2 MG/ML VIAL ONE (01:02)
[2016-06-20] MEDS: BECLOMETHASONE DIPROPIONATE 40MCG INHALER INH SCH ×3 (01:09→21:38)
[2016-06-20] MEDS: IPRATROPIUM/ALBUTEROL 3 ML AMPUL.NEB NEB SCH ×6 (03:06→23:21)
[2016-06-20 06:45] LABS: Mean Cell Volume 90.5 fL (80.0-100.0); Mean Corpuscular HGB Conc 31.3 g/dL (31.0-36.0); Mean Corpuscular Hemoglobin 28.3 pg (26.0-34.0); Platelet Count 250 K/mcL (140-440); RBC 4.48 M/mcL (4.00-5.20); Red Cell Distribution Width 13.8 % (11.5-14.5)
[2016-06-20] MEDS: methylPREDNISolone SOD SUCC 40 MG/ML VIAL IV SCH ×3 (06:48→21:37)
[2016-06-20] MEDS: 0.9 % SODIUM CHLORIDE 10 ML SYRINGE IV SCH ×3 (06:53→22:03)
[2016-06-20 06:54] LABS: ALT/SGPT 18 U/l (0-40); Albumin 3.5 gm/dL (3.2-5.2); Albumin/Globulin Ratio 1.3 (1.0-2.3); Alkaline Phosphatase 95 U/L (39-117); Bilirubin,Direct < 0.2 mg/dL (0.0-0.3); Blood Urea Nitrogen 6 mg/dl (8-23); Gamma Glutamyl Transpeptidase 14 U/L (5-36); Magnesium 2.8 mg/dL (1.6-2.5); Phosphorous 2.5 mg/dL (2.7-4.5); Uric Acid 1.5 mg/dL (2.5-8.0)
--- NOTE | 2016-06-20 07:53 | Cat Scan Report ---
ORIGINAL REPORT CLINICAL INFORMATION: Reason for Exam:shortness of breath, tachycardia, COMPARISON: 12/05/15 TECHNIQUE: Axial images obtained through the chest. intravenous contrast administration was administered, and scanning was performed during pulmonary arterial phase. Sagittally and coronally reformatted images were obtained. MIP reformatted images. FINDINGS: The pulmonary arteries are normal with no intraluminal filling defects. The aorta is normal in caliber and there is no aneurysm or dissection. Minimal plaque formation is present in the aorta. There is no significant calcified plaque in the coronary arteries. The heart is mildly enlarged. A severe scoliotic curvature is present in the thoracic spine resulting in a chest wall deformity. This is a chronic stable finding. There is moderate consolidation posteriorly in both lower lobes with air bronchograms. Alveolar infiltrates are present in both upper lobes right middle lobe and to lesser extent the lingula. The infiltrates are new since 12/05/15. There are small bilateral layering pleural effusions. There are a few reactive lymph nodes in the mediastinum in the pretracheal retrocaval space. Largest measures 1.5 cm. IMPRESSION: Moderate bilateral pneumonia with some superimposed atelectasis posteriorly in the lung bases. Small bilateral layering pleural effusions Mild cardiomegaly The ICU was called with the results ADDENDUM #1 There are a few small nonobstructing kidney stones within calyces in the mid and upper portion left kidney. They measure up to 4 mm. Interpreted and Authenticated by: Nicholas Griffin 06/20/16
[2016-06-20 08:42] LABS: Band Neutrophils % 2 % (0-10); Lymphocytes % 13 % (15-49); Metamyelocytes % 2 % (0-0); Platelet Estimate NORMAL (NORMAL); RBC Morphology NORMAL (NORMAL); Segmented Neutrophils % 82 % (38-78)
[2016-06-20] MEDS: VANCOMYCIN 1,000 MG in 0.9 % SODIUM CHLORIDE 250 ML IV SCH (09:10)
[2016-06-20] MEDS: HEPARIN 5,000 UNIT/ML VIAL SQ SCH ×2 (09:11→21:37)
[2016-06-20] MEDS: MULTIVIT,THER IRON,CA,FA & MIN 1 TABLET PO SCH (09:12)
[2016-06-20] MEDS: NEUTRA PHOS 1 PACKET PO SCH ×2 (09:12→21:38)
[2016-06-20] MEDS: ASPIRIN 81 MG TAB.CHEW PO SCH (09:12)
[2016-06-20] MEDS: GABAPENTIN 400 MG CAPSULE PO SCH ×3 (09:36→21:38)
[2016-06-20] MEDS: POTASSIUM CHLORIDE 10 MEQ TABLET PO SCH ×2 (09:41→17:44)
[2016-06-20] MEDS: ACETAMINOPHEN 325 MG TABLET PO PRN ×2 (09:48→19:10)
--- NOTE | 2016-06-20 10:46 | Internal Med Progress Note ---
Medical - PN: Subj Patient information: Note initiated : 06/20/16 at 10:44 am Service Date, if different from initiated Date: [] Patient: Alice Maradiaga 76 y/o F admitted on 06/19/16 for Confusion, SOB/ Pneumonia. Chief Complaint: [] Interval history: The patient seen examined, overnight events noted patient developed acute hypercapnic, hypoxic respiratory failure, due to COPD exacerbatin yesterday, and was needing bipap treatment. Overall the patient needed IV steroids, hourly duonebs, ABG monitoring, and IV steroids. Family was updated regarding the change in patients condition. This AM the patient was doing a bit better, with her respiratory status, I reviewed the ABG and her PH was in the normal range of 7.37/ co2 still at 71. The patient was still short of breath this AM, and desaturates once she is off bipap, so she needs ongoing bipap theray for now, The patient this AM had 3 episodes of BM loose, Cdiff ordered. Pertinent ROS: she admits to shortness of breath NO chest pain or chest tightness, no headache or d izziness no abdominal pain, but diarrhea present. - Constitutional Vitals: Vital Signs Temp Pulse Resp BP Pulse Ox 97.6 F 90 24 105/89 5 L 06/20/16 10:00 06/20/16 10:00 06/20/16 10:00 06/20/16 10:00 06/20/16 09:53 Period Temp Pulse Resp BP Sys/Bess Pulse Ox Last 24 Hr 96.7 F-98.9 F 77-102 15-25 91-141/53-89 5-97 Intake and Output 06/19/16 06/20/16 06/20/16 21:59 05:59 13:59 Intake Total 175 / 425 100 / 100 510 / 510 Output Total 51 / 51 Balance 175 / 225 49 / 49 510 / 510 Weight 148 lb 9.6 oz Intake & Output: Intake & Output 06/19/16 06/20/16 06/20/16 21:59 05:59 13:59 Intake Total 175 / 425 100 / 100 510 / 510 Output Total 51 / 51 Balance 175 / 225 49 / 49 510 / 510 Weight 148 lb 9.6 oz Intake: IV 50 / 100 50 / 50 50 / 50 Dextrose 5% in Water 50 50 / 100 50 / 50 50 / 50 ml @ 100 mls/hr IV Q6 [facility] with Zosyn 3.375 gm Rx#: [id number] Oral 125 / 325 50 / 50 460 / 460 Output: Void Amount 50 / 50 # of times incontinent of 1 / urine Other: Meal Breakfast Percent of Meal Consumed 10 Feeding Ability Needs Supervision # Bowel Movements 1 General appearance: cooperative, mild distress - Head Head exam: Present: atraumatic, normal inspection, normocephalic - Neck Neck exam: Present: normal inspection - Respiratory Respiratory exam: Present: wheezes. Absent: accessory muscle use, stridor Additional comments: air entry equal on both sides, storm wheezing noted, prolonged expiration no stridon no use of accessory muscles but she is on bipap - Cardiovascular Cardiovascular exam: Present: normal rate and rhythm, +S1, +S2 - GI/Abdominal GI/Abdominal exam: Present: normal bowel sounds, soft Additional comments: distended epigastric region due to aerophagia, from bipap treatment. - Neurological Exam Neurological exam: Present: alert, CN II-XII intact, oriented X3. Absent: motor sensory deficit - Psychiatric Psychiatric exam: Present: anxious. Absent: agitated - Skin Skin exam: Present: warm. Absent: rash Medical - PN: Obj Da - Labs CBC & Chem 7: 06/20/16 04:15 06/20/16 04:15 Labs: Abnormal Lab Results 06/20/16 06/20/16 04:15 04:15 Seg Neutrophils % 82 H Lymphocytes % 13 L Metamyelocytes % 2 H Carbon Dioxide 31 H BUN 6 L Creatinine 0.5 L Glucose 136 H Uric Acid 1.5 L Calcium 8.4 L Phosphorus 2.5 L Magnesium 2.8 H Meds: Medications Acetaminophen (Tylenol) 650 mg PO Q6HP PRN PRN Reason: PAIN/FEVER > 101 Last Admin: 06/20/16 09:48 Dose: 650 mg Albuterol/Ipratropium (Duoneb) 3 ml NEB Q4HRT [facility] Last Admin: 06/20/16 07:31 Dose: 3 ml Aspirin (Aspirin) 81 mg PO DAILY [facility] Last Admin: 06/20/16 09:12 Dose: 81 mg Atorvastatin Calcium (Lipitor) 20 mg PO HS [facility] Beclomethasone Dipropionate (Qvar 40) 4 puff INH BID [facility] Last Admin: 06/20/16 09:41 Dose: Not Given Bisacodyl (Dulcolax) 10 mg PO DAILYP PRN PRN Reason: Constipation Gabapentin (Neurontin) 400 mg PO TID [facility] Last Admin: 06/20/16 09:36 Dose: 400 mg Heparin Sodium (Porcine) (Heparin) 5,000 unit SQ Q12 [facility] Last Admin: 06/20/16 09:11 Dose: 5,000 unit Piperacillin Sod/Tazobactam (Sod 3.375 gm/ Dextrose) 50 mls @ 100 mls/hr IV Q6 [facility] Last Infusion: 06/20/16 06:22 Dose: Infused Vancomycin HCl 1,000 mg/ (Sodium Chloride) 250 mls @ 250 mls/hr IV DAILY [facility] Last Admin: 06/20/16 09:10 Dose: 250 mls/hr Iron Carb/Multivit/[place]/Folic Acid (Multivitamin W/Minerals) 1 tab PO DAILY [facility] Last Admin: 06/20/16 09:12 Dose: 1 tab Magnesium Hydroxide (Milk Of Magnesia) 30 ml PO DAILYP PRN PRN Reason: Constipation Methylprednisolone Sodium Succinate (Solu-Medrol) 40 mg IV Q8 [facility] Last Admin: 06/20/16 06:48 Dose: 40 mg Naloxone HCl (Narcan) 0.1 mg IV Q2MIN PRN PRN Reason: Opiate Reversal Ondansetron HCl (Zofran) 4 mg IV Q4HP PRN PRN Reason: Nausea And Vomiting Last Admin: 06/20/16 08:00 Dose: 4 [facility] Last Admin: 06/20/16 09:41 Dose: 10 meq Potassium/Phosphorus/Sodium (Neutra Phos) 1 packet PO BID [facility] Last Admin: 06/20/16 09:12 Dose: 1 packet Sodium Biphosphate/Sodium Phosphate (Fleets Adult) 1 dose [place] Q3DP PRN PRN Reason: Constipation Sodium Chloride (Saline Flush) 10 ml IV Q8 [facility] Last Admin: 06/20/16 06:53 Dose: 10 ml Medical - PN: A/P - Time Spent With Patient Total time spent is greater than 50% in coordination of care (as documented) at patient's floor/unit and/or counseling patient: (1) Hallucination, visual Status: Acute Assessment and plan: likely from medication use, vs due to infection resolved. Current Visit: Yes (2) Acute respiratory failure with hypoxia Status: Acute Assessment and plan: Acute hypercapenic respiratory failiure with hypoxia, CT eng for PE, trop x 2 negative, on bipap/ APAP setting being tried this AM to avoid excessive pressures. aBG : 7.37//70 patient tolerating pressures well Pts abg reviewed and they have improved since yesterday. It seems that the patient has base line co2 retention, around 50-60 co2 would be her baseline based on the bicarb readings in the past. Continue treatment of copd exacerbation. Current Visit: Yes (3) Subclavian steal syndrome Status: Acute Assessment and plan: Patent dizziness due to subclavian steal syndrome. Current Visit: Yes (4) Community acquired pneumonia Status: Acute Assessment and plan: Treat with IV aBX, but changed to vancomycin and zosyn. microbiology neg contiue same Current Visit: Yes (5) Hypotension Problem details: in the left arm due to subclavian stenosis. Status: Acute Assessment and plan: Bl;ood pressure due to subclavina stenosis. Current Visit: No (6) COPD with acute exacerbation Status: Acute Assessment and plan: duonebs bipap/apap iv solumedrol on abx CT A negative. Current Visit: Yes - Narrative A/P Narrative: DVT prophylaxis - Heparin Sq Diet Cardiac Prognosis Guarded. Code status DNR/ DNI Medical - PN: Qual - Stroke Symptom Onset Unknown: No - VTE Deep Vein Thrombosis/Pulmonary Embolism Present on Admission: No
[2016-06-20] MEDS: ATORVASTATIN 20 MG TABLET PO SCH (21:38)
[2016-06-21] MEDS: PIPERACILLIN SODIUM/TAZOBACTAM 3.375 GM in DEXTROSE 5% IN WATER 50 ML IV SCH ×5 (01:38→23:21)
[2016-06-21] MEDS: IPRATROPIUM/ALBUTEROL 3 ML AMPUL.NEB NEB SCH ×6 (03:11→23:50)
[2016-06-21] MEDS: methylPREDNISolone SOD SUCC 40 MG/ML VIAL IV SCH ×3 (05:31→23:01)
[2016-06-21] MEDS: 0.9 % SODIUM CHLORIDE 10 ML SYRINGE IV SCH ×3 (05:32→21:42)
[2016-06-21 07:12] LABS: Mean Cell Volume 94.3 fL (80.0-100.0); Mean Corpuscular HGB Conc 30.6 g/dL (31.0-36.0); Mean Corpuscular Hemoglobin 28.9 pg (26.0-34.0); Platelet Count 272 K/mcL (140-440); RBC 4.27 M/mcL (4.00-5.20); Red Cell Distribution Width 14.8 % (11.5-14.5)
[2016-06-21 07:36] LABS: ALT/SGPT 19 U/l (0-40); Albumin 3.8 gm/dL (3.2-5.2); Albumin/Globulin Ratio 1.5 (1.0-2.3); Alkaline Phosphatase 87 U/L (39-117); Bilirubin,Direct < 0.2 mg/dL (0.0-0.3); Blood Urea Nitrogen 9 mg/dl (8-23); Gamma Glutamyl Transpeptidase 13 U/L (5-36); Magnesium 2.7 mg/dL (1.6-2.5); Phosphorous 2.7 mg/dL (2.7-4.5); Uric Acid 1.3 mg/dL (2.5-8.0)
[2016-06-21 08:13] LABS: Lymphocytes % 15 % (15-49); Monocytes % (Manual) 2 % (1-9); Myelocytes % 1 % (0-0); Platelet Estimate NORMAL (NORMAL); RBC Morphology NORMAL (NORMAL); Segmented Neutrophils % 82 % (38-78)
[2016-06-21] MEDS ORDERED: 0.45 % SODIUM CHLORIDE 1,000 ML IV SCH (08:15)
--- NOTE | 2016-06-21 09:40 | Internal Med Progress Note ---
Medical - PN: Subj Patient information: Note initiated : 06/21/16 at 9:38 am Service Date, if different from initiated Date: [] Patient: Alice Maradiaga 76 y/o F admitted on 06/19/16 for Confusion, SOB/ Pneumonia. Chief Complaint: [] Interval history: The patient seen examined, overnight events noted She does not endrose any new complaints today, The patient was off bipap yesterday,and was tolerating it well untill early this morning. This AM she bacame confused again. ABG showed PH 7I have spent 50% of a 30 min visit, face to face in counselling and care coordination.PCO2 90, she was placed on bipap again. She is tolerating bipap (APAP setting) with good TV. She remains on duonebs x 4 hrs, IV steroids and antibiotics. / Pertinent ROS: no chest pain or palpitations no cough ,but was short of breath no headache, dizziness, but confused irby tu co2 narcosis. - Constitutional Vitals: Vital Signs Temp Pulse Resp BP Pulse Ox 97.2 F L 92 H 21 111/65 93 06/21/16 07:00 06/21/16 08:00 06/21/16 08:00 06/21/16 08:00 06/21/16 08:00 Period Temp Pulse Resp BP Sys/Bess Pulse Ox Last 24 Hr 97.2 F-99.0 F 84-103 12-95 91-138/57-104 5-100 Intake and Output 06/20/16 06/21/16 06/21/16 21:59 05:59 13:59 Intake Total 650 / 650 300 / 300 Output Total 353 / 353 2 / 2 425 / 425 Balance 297 / 297 298 / 298 -425 / -425 Weight 146 lb 12.8 oz Intake & Output: Intake & Output 06/20/16 06/21/16 06/21/16 21:59 05:59 13:59 Intake Total 650 / 650 300 / 300 Output Total 353 / 353 2 / 2 425 / 425 Balance 297 / 297 298 / 298 -425 / -425 Weight 146 lb 12.8 oz Intake: IV 450 / 450 50 / 50 Dextrose 5% in Water 50 100 / 100 50 / 50 ml @ 100 mls/hr IV Q6 [facility] with Zosyn 3.375 gm Rx#: [id number] Oral 200 / 200 250 / 250 Output: Urine Catheter Amount 425 / 425 Void Amount 350 / 350 # of times incontinent of 3 / 3 2 / 2 urine Other: Meal Dinner Percent of Meal Consumed 0% Feeding Ability Assist with Tray Set Up # Voids 0 # Bowel Movements 1 1 General appearance: cooperative, no acute distress - Head Head exam: Present: atraumatic, normal inspection, normocephalic - Eye Eye exam: Present: PERRL. Absent: periorbital swelling, periorbital tenderness , scleral icterus - ENT ENT exam: Present: mucous membranes dry - Neck Neck exam: Present: normal inspection - Respiratory Respiratory exam: Present: normal respiratory exam, prolonged expiratory phase. Absent: accessory muscle use, chest wall tenderness, decreased breath sounds, wheezes - Cardiovascular Cardiovascular exam: Present: normal rate and rhythm, +S1, +S2 - GI/Abdominal GI/Abdominal exam: Present: normal bowel sounds, soft - Neurological Exam Neurological exam: Present: alert, altered (drowsy, this AM ), CN II-XII intact - Psychiatric Psychiatric exam: Absent: agitated Medical - PN: Obj Da - Labs CBC & Chem 7: 06/21/16 04:20 06/21/16 04:20 Labs: Abnormal Lab Results 06/21/16 06/21/16 06/20/16 04:20 04:20 04:15 MCHC 30.6 L RDW 14.8 H Seg Neutrophils % 82 H Lymphocytes % Metamyelocytes % Myelocytes % 1 H Sodium 146 H Carbon Dioxide 36 H 31 H Anion Gap 7.0 L BUN 6 L Creatinine 0.5 L Glucose 135 H 136 H Uric Acid 1.3 L 1.5 L Calcium 8.4 L Phosphorus 2.5 L Magnesium 2.7 H 2.8 H 06/20/16 04:15 MCHC RDW Seg Neutrophils % 82 H Lymphocytes % 13 L Metamyelocytes % 2 H Myelocytes % Sodium Carbon Dioxide Anion Gap BUN Creatinine Glucose Uric Acid Calcium Phosphorus Magnesium Meds: Medications Acetaminophen (Tylenol) 650 mg PO Q6HP PRN PRN Reason: PAIN/FEVER > 101 Last Admin: 06/20/16 19:10 Dose: 650 mg Albuterol/Ipratropium (Duoneb) 3 ml NEB Q4HRT [facility] Last Admin: 06/21/16 07:08 Dose: 3 ml Aspirin (Aspirin) 81 mg PO DAILY [facility] Last Admin: 06/20/16 09:12 Dose: 81 mg Atorvastatin Calcium (Lipitor) 20 mg PO HS [facility] Last Admin: 06/20/16 21:38 Dose: 20 mg Beclomethasone Dipropionate (Qvar 40) 4 puff INH BID [facility] Last Admin: 06/20/16 21:38 Dose: 4 puff Bisacodyl (Dulcolax) 10 mg PO DAILYP PRN PRN Reason: Constipation Gabapentin (Neurontin) 400 mg PO TID [facility] Last Admin: 06/20/16 21:38 Dose: 400 mg Heparin Sodium (Porcine) (Heparin) 5,000 unit SQ Q12 [facility] Last Admin: 06/20/16 21:37 Dose: 5,000 unit Piperacillin Sod/Tazobactam (Sod 3.375 gm/ Dextrose) 50 mls @ 100 mls/hr IV Q6 [facility] Last Admin: 06/21/16 05:31 Dose: 100 mls/hr Vancomycin HCl 1,000 mg/ (Sodium Chloride) 250 mls @ 250 mls/hr IV DAILY [facility] Last Infusion: 06/20/16 10:10 Dose: Infused Sodium Chloride (Sodium Chloride 0.45%) 1,000 mls @ 75 mls/hr IV .[id number] [facility] Stop: 06/21/16 21:34 Iron Carb/Multivit/[place]/Folic Acid (Multivitamin W/Minerals) 1 tab PO DAILY [facility] Last Admin: 06/20/16 09:12 Dose: 1 tab Methylprednisolone Sodium Succinate (Solu-Medrol) 40 mg IV Q8 [facility] Last Admin: 06/21/16 05:31 Dose: 40 mg Naloxone HCl (Narcan) 0.1 mg IV Q2MIN PRN PRN Reason: Opiate Reversal Ondansetron HCl (Zofran) 4 mg IV Q4HP PRN PRN Reason: Nausea And Vomiting Last Admin: 06/20/16 08:00 Dose: 4 mg Pot[facility] ([facility]) [facility] Last Admin: 06/20/16 17:44 Dose: 10 meq Potassium/Phosphorus/Sodium (Neutra Phos) 1 packet PO BID [facility] Last Admin: 06/20/16 21:38 Dose: 1 packet Sodium Biphosphate/Sodium Phosphate (Fleets Adult) 1 dose [place] Q3DP PRN PRN Reason: Constipation Sodium Chloride (Saline Flush) 10 ml IV Q8 [facility] Last Admin: 06/21/16 05:32 Dose: 10 ml Medical - PN: A/P - Time Spent With Patient Total time spent is greater than 50% in coordination of care (as documented) at patient's floor/unit and/or counseling patient: (1) Hallucination, visual Status: Acute Assessment and plan: likely from medication use, vs due to infection vs co2 narcosis, resolved for now. Current Visit: Yes (2) Acute respiratory failure with hypoxia Status: Acute Assessment and plan: Acute hypercapenic respiratory failiure with hypoxia, CT eng for PE, trop x 2 negative, on bipap/ APAP setting being tried this AM to avoid excessive pressures. aBG : 7./, which worsened again this AM , back on bipap. Patient is on steroids duonebs and abx, she seems like she will take a while to recover due to severe restrictive lung component. Monitor closely. Current Visit: Yes (3) Community acquired pneumonia Status: Acute Assessment and plan: Treat with IV aBX, but changed to vancomycin and zosyn. microbiology neg contiue same, D3 today Current Visit: Yes (4) COPD with acute exacerbation Status: Acute Assessment and plan: see above Current Visit: Yes - Narrative A/P Narrative: patient seemed dehydrated today, NA was worseing started on slow IV fluids with half NS DVT- hep sq Diet cardiac prognosis guarded. patient in ICU c ritical care service rendered, 35 mins spend in chart review, coordination of care, reviewing ABG, BIPAP / Non invasive ventilation management. Medical - PN: Qual - Stroke Symptom Onset Unknown: No - VTE Deep Vein Thrombosis/Pulmonary Embolism Present on Admission: No
[2016-06-21] MEDS: POTASSIUM CHLORIDE 10 MEQ TABLET PO SCH ×2 (10:24→17:27)
[2016-06-21] MEDS: HEPARIN 5,000 UNIT/ML VIAL SQ SCH ×2 (10:25→21:26)
[2016-06-21] MEDS: NEUTRA PHOS 1 PACKET PO SCH ×2 (10:25→21:26)
[2016-06-21] MEDS: ASPIRIN 81 MG TAB.CHEW PO SCH (10:25)
[2016-06-21] MEDS: MULTIVIT,THER IRON,CA,FA & MIN 1 TABLET PO SCH (10:25)
[2016-06-21] MEDS: GABAPENTIN 400 MG CAPSULE PO SCH ×3 (10:30→21:26)
[2016-06-21] MEDS: BECLOMETHASONE DIPROPIONATE 40MCG INHALER INH SCH ×2 (10:31→21:28)
[2016-06-21] MEDS: VANCOMYCIN 1,000 MG in 0.9 % SODIUM CHLORIDE 250 ML IV SCH ×3 (12:00→21:26)
[2016-06-21] MEDS: ACETAMINOPHEN 325 MG TABLET PO PRN (19:32)
[2016-06-21] MEDS: ATORVASTATIN 20 MG TABLET PO SCH (21:26)
[2016-06-21] MEDS ORDERED: BENZONATATE 100 MG CAPSULE PO PRN (22:08)
[2016-06-21] MEDS: LORazepam 2 MG/ML VIAL IV ONE ×2 (23:46→23:48)
[2016-06-21] MEDS ORDERED: LORazepam 2 MG/ML VIAL ONE (23:52)
[2016-06-22] MEDS ORDERED: LORazepam 2 MG/ML VIAL IV ONE (01:38)
[2016-06-22] MEDS: IPRATROPIUM/ALBUTEROL 3 ML AMPUL.NEB NEB SCH ×6 (04:08→23:36)
[2016-06-22] MEDS: 0.9 % SODIUM CHLORIDE 10 ML SYRINGE IV SCH ×4 (05:38→21:13)
[2016-06-22] MEDS: PIPERACILLIN SODIUM/TAZOBACTAM 3.375 GM in DEXTROSE 5% IN WATER 50 ML IV SCH ×3 (05:38→17:41)
[2016-06-22] MEDS: methylPREDNISolone SOD SUCC 40 MG/ML VIAL IV SCH ×3 (05:39→21:12)
[2016-06-22 07:15] LABS: Mean Cell Volume 92.6 fL (80.0-100.0); Mean Corpuscular HGB Conc 30.7 g/dL (31.0-36.0); Mean Corpuscular Hemoglobin 28.4 pg (26.0-34.0); Platelet Count 281 K/mcL (140-440); RBC 4.03 M/mcL (4.00-5.20); Red Cell Distribution Width 14.7 % (11.5-14.5)
[2016-06-22] MEDS: HEPARIN 5,000 UNIT/ML VIAL SQ SCH ×2 (08:03→21:12)
[2016-06-22] MEDS: ASPIRIN 81 MG TAB.CHEW PO SCH (08:03)
[2016-06-22] MEDS: MULTIVIT,THER IRON,CA,FA & MIN 1 TABLET PO SCH (08:03)
[2016-06-22] MEDS: POTASSIUM CHLORIDE 10 MEQ TABLET PO SCH ×2 (08:03→16:18)
[2016-06-22] MEDS: NEUTRA PHOS 1 PACKET PO SCH ×2 (08:04→21:12)
[2016-06-22] MEDS: BECLOMETHASONE DIPROPIONATE 40MCG INHALER INH SCH (08:04)
[2016-06-22] MEDS: GABAPENTIN 400 MG CAPSULE PO SCH ×3 (08:04→21:12)
[2016-06-22 08:11] LABS: ALT/SGPT 19 U/l (0-40); Albumin 3.5 gm/dL (3.2-5.2); Albumin/Globulin Ratio 1.6 (1.0-2.3); Alkaline Phosphatase 75 U/L (39-117); Bilirubin,Direct < 0.2 mg/dL (0.0-0.3); Blood Urea Nitrogen 10 mg/dl (8-23); Gamma Glutamyl Transpeptidase 13 U/L (5-36); Magnesium 2.3 mg/dL (1.6-2.5); Phosphorous 2.1 mg/dL (2.7-4.5); Uric Acid 0.9 mg/dL (2.5-8.0)
[2016-06-22 08:23] LABS: Band Neutrophils % 2 % (0-10); Lymphocytes % 12 % (15-49); Monocytes % (Manual) 5 % (1-9); Platelet Estimate NORMAL (NORMAL); RBC Morphology NORMAL (NORMAL); Segmented Neutrophils % 81 % (38-78)
[2016-06-22] MEDS: VANCOMYCIN 1,000 MG in 0.9 % SODIUM CHLORIDE 250 ML IV SCH ×2 (10:32→21:13)
--- NOTE | 2016-06-22 10:52 | Internal Med Progress Note ---
Medical - PN: Subj Patient information: Note initiated : 06/22/16 at 10:40 am Service Date, if different from initiated Date: [] Patient: Alice Maradiaga 76 y/o F admitted on 06/19/16 for Confusion, SOB/ Pneumonia. Chief Complaint: [] Interval history: The patient seen examined this AM Overnight events noted, She was short of breath last night with cough, some confusion, and then the patient was placed back on bipap. She did well, had some anxiety. She needed 0.5mg ativan to help her calm down She has been off the bipap this AM and was sitting comfortably in chair, no acute complaints, no hallucinations, and feeling good Her ABG this AM is 7.44/52/50, she was 86% on osat at this time. The patient is progressing very slowly to wards baseline. She has a combs in place as she was not able to void, will see if we can d/c this after some bladder training. Pertinent ROS: no chest pain, or palpitations Some abdominal discomfort from abdominal gas, no nausea or vomiting no headache or dizziness Cough present, no shortness of breath. - Constitutional Vitals: Vital Signs Temp Pulse Resp BP Pulse Ox 98.3 F 96 H 20 138/84 97 06/22/16 08:38 06/22/16 10:00 06/22/16 10:00 06/22/16 10:00 06/22/16 10:00 Period Temp Pulse Resp BP Sys/Bess Pulse Ox Last 24 Hr 97.6 F-99.2 F 65-98 10-32 88-163/64-98 89-100 Intake and Output 06/21/16 06/22/16 06/22/16 21:59 05:59 13:59 Intake Total 640 / 640 1290 / 1290 800 / 800 Output Total 750 / 750 1800 / 1800 Balance -110 / -110 -510 / -510 800 / 800 Weight 147 lb 12.8 oz Intake & Output: Intake & Output 06/21/16 06/22/16 06/22/16 21:59 05:59 13:59 Intake Total 640 / 640 1290 / 1290 800 / 800 Output Total 750 / 750 1800 / 1800 Balance -110 / -110 -510 / -510 800 / 800 Weight 147 lb 12.8 oz Intake: IV 100 / 100 1050 / 1050 300 / 300 Sodium Chloride 0.45% 1, 1000 / 1000 000 ml @ 75 mls/hr IV . [id number] [facility]ARG[facility] Rx#:[id number] Dextrose 5% in Water 50 100 / 100 50 / 50 50 / 50 ml @ 100 mls/hr IV Q6 [facility] with Zosyn 3.375 gm Rx#: [id number] Sodium Chloride 0.9% 250 250 / 250 ml @ 250 mls/hr IV Q12 [facility] with Vancomycin 1,000 mg Rx#:[id number] Oral 540 / 540 240 / 240 500 / 500 Output: Urine Catheter Amount 750 / 750 1800 / 1800 Other: Meal Dinner Percent of Meal Consumed 75% 100% # Bowel Movements 3 General appearance: cooperative, no acute distress - Head Head exam: Present: atraumatic, normal inspection - Eye Eye exam: Present: PERRL. Absent: periorbital swelling, periorbital tenderness , scleral icterus - ENT ENT exam: Present: mucous membranes moist - Neck Neck exam: Present: normal inspection - Respiratory Respiratory exam: Present: normal respiratory exam. Absent: accessory muscle use, chest wall tenderness, wheezes Additional comments: air entry equal on both sides, but diminshed air movement, no wheezing or stridor. - Cardiovascular Cardiovascular exam: Present: normal rate and rhythm, +S1, +S2 - Neurological Exam Neurological exam: Present: alert, CN II-XII intact, oriented X3. Absent: motor sensory deficit - Psychiatric Psychiatric exam: Absent: agitated, anxious Medical - PN: Obj Da - Labs CBC & Chem 7: 06/22/16 04:25 06/22/16 04:25 Labs: Abnormal Lab Results 06/22/16 06/22/16 06/21/16 04:25 04:25 04:20 Hgb 11.4 L MCHC 30.7 L RDW 14.7 H Seg Neutrophils % 81 H Lymphocytes % 12 L Metamyelocytes % Myelocytes % Sodium 146 H Carbon Dioxide 34 H 36 H Anion Gap 7.0 L 7.0 L BUN Creatinine 0.5 L Glucose 121 H 135 H Uric Acid 0.9 L 1.3 L Calcium Phosphorus 2.1 L Magnesium 2.7 H Total Protein 5.7 L 06/21/16 06/20/16 06/20/16 04:20 04:15 04:15 Hgb MCHC 30.6 L RDW 14.8 H Seg Neutrophils % 82 H 82 H Lymphocytes % 13 L Metamyelocytes % 2 H Myelocytes % 1 H Sodium Carbon Dioxide 31 H Anion Gap BUN 6 L Creatinine 0.5 L Glucose 136 H Uric Acid 1.5 L Calcium 8.4 L Phosphorus 2.5 L Magnesium 2.8 H Total Protein Meds: Medications Acetaminophen (Tylenol) 650 mg PO Q6HP PRN PRN Reason: PAIN/FEVER > 101 Last Admin: 06/21/16 19:32 Dose: 650 mg Albuterol/Ipratropium (Duoneb) 3 ml NEB Q4HRT [facility] Last Admin: 06/22/16 07:10 Dose: 3 ml Aspirin (Aspirin) 81 mg PO DAILY [facility] Last Admin: 06/22/16 08:03 Dose: 81 mg Atorvastatin Calcium (Lipitor) 20 mg PO HS [facility] Last Admin: 06/21/16 21:26 Dose: 20 mg Beclomethasone Dipropionate (Qvar 40) 4 puff INH BID [facility] Last Admin: 06/22/16 08:04 Dose: 4 puff Benzonatate (Tessalon) 100 mg PO QIDP PRN PRN Reason: Cough Bisacodyl (Dulcolax) 10 mg PO DAILYP PRN PRN Reason: Constipation Gabapentin (Neurontin) 400 mg PO TID [facility] Last Admin: 06/22/16 08:04 Dose: 400 mg Heparin Sodium (Porcine) (Heparin) 5,000 unit SQ Q12 [facility] Last Admin: 06/22/16 08:03 Dose: 5,000 unit Piperacillin Sod/Tazobactam (Sod 3.375 gm/ Dextrose) 50 mls @ 100 mls/hr IV Q6 [facility] Last Infusion: 06/22/16 07:51 Dose: Infused Vancomycin HCl 1,000 mg/ (Sodium Chloride) 250 mls @ 250 mls/hr IV Q12 [facility] Last Admin: 06/22/16 10:32 Dose: 250 mls/hr Iron Carb/Multivit/Manager Presentation/Folic Acid (Multivitamin W/Minerals) 1 tab PO DAILY [facility] Last Admin: 06/22/16 08:03 Dose: 1 tab Methylprednisolone Sodium Succinate (Solu-Medrol) 40 mg IV Q8 [facility] Last Admin: 06/22/16 05:39 Dose: 40 mg Naloxone HCl (Narcan) 0.1 mg IV Q2MIN PRN PRN Reason: Opiate Reversal Ondansetron HCl (Zofran) 4 mg IV Q4HP PRN PRN Reason: Nausea And Vomiting Last Admin: 06/20/16 08:00 Dose: 4 mg Potassium Chloride (Kdur) 10 meq PO BIDCC [facility] Last Admin: 06/22/16 08:03 Dose: 10 meq Potassium/Phosphorus/Sodium (Neutra Phos) 1 packet PO BID [facility] Last Admin: 06/22/16 08:04 Dose: 1 packet Sodium Biphosphate/Sodium Phosphate (Fleets Adult) 1 dose [place] Q3DP PRN PRN Reason: Constipation Sodium Chloride (Saline Flush) 10 ml IV Q8 [facility] Last Admin: 06/22/16 05:38 Dose: 10 ml Medical - PN: A/P - Time Spent With Patient Total time spent is greater than 50% in coordination of care (as documented) at patient's floor/unit and/or counseling patient: (1) Hallucination, visual Status: Acute Assessment and plan: likely from medication use, vs due to infection vs co2 narcosis, resolved now, Current Visit: Yes (2) Acute respiratory failure with hypoxia Status: Acute Assessment and plan: Acute hypercapenic respiratory failiure with hypoxia, CT eng for PE, trop x 2 negative, Patient last ABG was good, she is off bipap now will monitor closely If she becomes confused again, plan to get ABG to evaluate her ph/ co2, I am wondering if delirum is playing a role in confusion in addition to co2 narcosis. Current Visit: Yes (3) Community acquired pneumonia Status: Acute Assessment and plan: Treat with IV aBX, but changed to vancomycin and zosyn. microbiology neg contiue same, D4 today tomorrow would be the last day of abx Current Visit: Yes (4) COPD with acute exacerbation Status: Acute Assessment and plan: on duonebx q4 hrs, IV solumedrol, Antibiotics, BIPAP and incentive spirometery Patient given her severe scoliosis and restrictive lung disease will take al sj time to recover her pulmonary function. May need pulmonary rehab as outpatient. Current Visit: Yes - Narrative A/P Narrative: Diet - TOlerating po well, cardiac diet. DVT hep SQ. Medical - PN: Qual - Stroke Symptom Onset Unknown: No - VTE Deep Vein Thrombosis/Pulmonary Embolism Present on Admission: No
[2016-06-22] MEDS: ATORVASTATIN 20 MG TABLET PO SCH (21:12)
[2016-06-23] MEDS: PIPERACILLIN SODIUM/TAZOBACTAM 3.375 GM in DEXTROSE 5% IN WATER 50 ML IV SCH ×4 (00:14→17:50)
[2016-06-23] MEDS: IPRATROPIUM/ALBUTEROL 3 ML AMPUL.NEB NEB SCH ×6 (02:24→22:46)
[2016-06-23] MEDS: methylPREDNISolone SOD SUCC 40 MG/ML VIAL IV SCH ×2 (05:45→20:48)
[2016-06-23] MEDS: 0.9 % SODIUM CHLORIDE 10 ML SYRINGE IV SCH ×2 (05:53→15:11)
[2016-06-23 07:31] LABS: Basophils # (Auto) 0 K/mcL (0.0-0.3); Basophils % (Auto) 0.1 % (0.0-2.0); Eosinophils # (Auto) 0 K/mcL (0.0-0.7); Eosinophils % (Auto) 0 % (0.0-7.0); Granulocytes % (Auto) 87.3 % (38.0-78.0); Lymphocytes % (Auto) 10.7 % (15.5-49.0); Mean Cell Volume 90.7 fL (80.0-100.0); Mean Corpuscular HGB Conc 31.6 g/dL (31.0-36.0); Mean Corpuscular Hemoglobin 28.7 pg (26.0-34.0); Monocytes # (Auto) 0.2 K/mcL (0.1-0.9); Monocytes % (Auto) 1.9 % (1.0-9.0); Platelet Count 283 K/mcL (140-440); RBC 4.15 M/mcL (4.00-5.20); Red Cell Distribution Width 14.7 % (11.5-14.5)
[2016-06-23 08:33] LABS: ALT/SGPT 18 U/l (0-40); Albumin 3.3 gm/dL (3.2-5.2); Albumin/Globulin Ratio 1.3 (1.0-2.3); Alkaline Phosphatase 77 U/L (39-117); Bilirubin,Direct < 0.2 mg/dL (0.0-0.3); Blood Urea Nitrogen 9 mg/dl (8-23); Gamma Glutamyl Transpeptidase 11 U/L (5-36); Magnesium 2.2 mg/dL (1.6-2.5); Phosphorous 2.4 mg/dL (2.7-4.5); Uric Acid 0.9 mg/dL (2.5-8.0)
[2016-06-23] MEDS: NEUTRA PHOS 1 PACKET PO SCH ×2 (09:57→20:45)
[2016-06-23] MEDS: HEPARIN 5,000 UNIT/ML VIAL SQ SCH ×2 (09:57→21:00)
[2016-06-23] MEDS: ASPIRIN 81 MG TAB.CHEW PO SCH (09:57)
[2016-06-23] MEDS: MULTIVIT,THER IRON,CA,FA & MIN 1 TABLET PO SCH (09:58)
[2016-06-23] MEDS: POTASSIUM CHLORIDE 10 MEQ TABLET PO SCH ×2 (09:58→17:58)
[2016-06-23] MEDS: VANCOMYCIN 1,000 MG in 0.9 % SODIUM CHLORIDE 250 ML IV SCH ×2 (10:51→20:59)
[2016-06-23] MEDS: GABAPENTIN 400 MG CAPSULE PO SCH ×3 (11:21→20:46)
--- NOTE | 2016-06-23 13:30 | Internal Med Progress Note ---
Medical - PN: Subj Patient information: Note initiated : 06/23/16 at 1:28 pm Service Date, if different from initiated Date: [] Patient: Alice Maradiaga 76 y/o F admitted on 06/19/16 for Confusion, SOB/ Pneumonia. Chief Complaint: [] Interval history: patient seen examined, this AM, no acute overnight events not needed bipap no shortness of breath, no hallucinations, no confusion The patient is improving, albiet slowly, doing cpap, IC, able to only draw in 500cc TV on the IC. Overall given improvement and no need for bipap x 2 days, will transfer to med [facility], where she will have less lines, and be more comfortable If remains stable by tomorrow, will d/c to snf for rehab. Pertinent ROS: cough present, intermittent sob no chest pain, palpitations no headache dizziness no abdominal pain, no nausea or vomiting. - Constitutional Vitals: Vital Signs Temp Pulse Resp BP Pulse Ox 98.9 F 85 20 146/83 97 06/23/16 12:00 06/23/16 11:11 06/23/16 12:00 06/23/16 12:00 06/23/16 12:00 Period Temp Pulse Resp BP Sys/Bess Pulse Ox Last 24 Hr 97.7 F-98.9 F 72-111 14-31 110-158/52-98 89-98 Intake and Output 06/22/16 06/23/16 06/23/16 21:59 05:59 13:59 Intake Total 600 / 600 660 / 660 850 / 850 Output Total 2151 / 2151 575 / 575 700 / 700 Balance -1551 / -1551 85 / 85 150 / 150 Weight 146 lb 3.2 oz Intake & Output: Intake & Output 06/22/16 06/23/16 06/23/16 21:59 05:59 13:59 Intake Total 600 / 600 660 / 660 850 / 850 Output Total 2151 / 2151 575 / 575 700 / 700 Balance -1551 / -1551 85 / 85 150 / 150 Weight 146 lb 3.2 oz Intake: IV 100 / 100 300 / 300 50 / 50 Dextrose 5% in Water 50 100 / 100 50 / 50 50 / 50 ml @ 100 mls/hr IV Q6 [facility]ARG[facility]ITA with Zosyn 3.375 gm Rx#: [id number] Sodium Chloride 0.9% 250 250 / 250 ml @ 250 mls/hr IV Q12 MARGARITA with Vancomycin 1,000 mg Rx#:[id number] Oral 500 / 500 360 / 360 800 / 800 Output: Urine Catheter Amount 1700 / 1700 Void Amount 150 / 150 575 / 575 550 / 550 # of times incontinent of 1 / 1 urine Urine/Stool Mix 300 / 300 150 / 150 Other: Meal Lunch Percent of Meal Consumed 100% # Voids 1 1 1 # Bowel Movements 1 General appearance: cooperative, no acute distress - Head Head exam: Present: atraumatic, normal inspection - Eye Eye exam: Present: PERRL. Absent: periorbital swelling, periorbital tenderness , scleral icterus - ENT ENT exam: Present: mucous membranes moist - Respiratory Respiratory exam: Present: normal respiratory exam, accessory muscle use Additional comments: storm air entry equal, no wheezing, or rhonchi. - Cardiovascular Cardiovascular exam: Present: normal rate and rhythm, +S1, +S2 - GI/Abdominal GI/Abdominal exam: Present: normal bowel sounds, soft - Neurological Exam Neurological exam: Present: alert, CN II-XII intact, oriented X3. Absent: motor sensory deficit Medical - PN: Obj Da - Labs CBC & Chem 7: 06/23/16 04:45 06/23/16 04:45 Labs: Abnormal Lab Results 06/23/16 06/23/16 06/23/16 07:58 04:45 04:45 Hgb 11.9 L MCHC RDW 14.7 H Gran % 87.3 H Lymph % (Auto) 10.7 L Gran # 8.4 H Lymph # 1.0 L Seg Neutrophils % Lymphocytes % Myelocytes % Sodium Carbon Dioxide Anion Gap Creatinine Glucose 124 H Uric Acid 0.9 L Phosphorus 2.4 L Magnesium Lactate Dehydrogenase 277 H Total Protein Vancomycin Trough 16.9 H 06/22/16 06/22/16 06/21/16 04:25 04:25 04:20 Hgb 11.4 L MCHC 30.7 L RDW 14.7 H Gran % Lymph % (Auto) Gran # Lymph # Seg Neutrophils % 81 H Lymphocytes % 12 L Myelocytes % Sodium 146 H Carbon Dioxide 34 H 36 H Anion Gap 7.0 L 7.0 L Creatinine 0.5 L Glucose 121 H 135 H Uric Acid 0.9 L 1.3 L Phosphorus 2.1 L Magnesium 2.7 H Lactate Dehydrogenase Total Protein 5.7 L Vancomycin Trough 06/21/16 04:20 Hgb MCHC 30.6 L RDW 14.8 H Gran % Lymph % (Auto) Gran # Lymph # Seg Neutrophils % 82 H Lymphocytes % Myelocytes % 1 H Sodium Carbon Dioxide Anion Gap Creatinine Glucose Uric Acid Phosphorus Magnesium Lactate Dehydrogenase Total Protein Vancomycin Trough Meds: Medications Acetaminophen (Tylenol) 650 mg PO Q6HP PRN PRN Reason: PAIN/FEVER > 101 Last Admin: 06/21/16 19:32 Dose: 650 mg Albuterol/Ipratropium (Duoneb) 3 ml NEB Q4HRT [facility] Last Admin: 06/23/16 11:09 Dose: 3 ml Aspirin (Aspirin) 81 mg PO DAILY [facility] Last Admin: 06/23/16 09:57 Dose: 81 mg Atorvastatin Calcium (Lipitor) 20 mg PO HS [facility] Last Admin: 06/22/16 21:12 Dose: 20 mg Benzonatate (Tessalon) 100 mg PO QIDP PRN PRN Reason: Cough Bisacodyl (Dulcolax) 10 mg PO DAILYP PRN PRN Reason: Constipation Gabapentin (Neurontin) 400 mg PO TID [facility] Last Admin: 06/23/16 11:21 Dose: 400 mg Heparin Sodium (Porcine) (Heparin) 5,000 unit SQ Q12 [facility] Last Admin: 06/23/16 09:57 Dose: 5,000 unit Piperacillin Sod/Tazobactam (Sod 3.375 gm/ Dextrose) 50 mls @ 100 mls/hr IV Q6 [facility] Last Admin: 06/23/16 12:05 Dose: 100 mls/hr Vancomycin HCl 1,000 mg/ (Sodium Chloride) 250 mls @ 250 mls/hr IV Q12 [facility] Last Admin: 06/23/16 10:51 Dose: 250 mls/hr Iron Carb/Multivit/Sutter/Folic Acid (Multivitamin W/Minerals) 1 tab PO DAILY [facility] Last Admin: 06/23/16 09:58 Dose: 1 tab Methylprednisolone Sodium Succinate (Solu-Medrol) 40 mg IV Q12 [facility] Naloxone HCl (Narcan) 0.1 mg IV Q2MIN PRN PRN Reason: Opiate Reversal Ondansetron HCl (Zofran) 4 mg IV Q4HP PRN PRN Reason: Nausea And Vomiting Last Admin: 06/20/16 08:00 Dose: 4 mg [facility] Last Admin: 06/23/16 09:58 Dose: 10 meq Potassium/Phosphorus/Sodium (Neutra Phos) 1 packet PO BID [facility] Last Admin: 06/23/16 09:57 Dose: 1 packet Sodium Biphosphate/Sodium Phosphate (Fleets Adult) 1 dose ID Q3DP PRN PRN Reason: Constipation Sodium Chloride (Saline Flush) 10 ml IV Q8 [facility] Last Admin: 06/23/16 05:53 Dose: 10 ml Medical - PN: A/P - Time Spent With Patient Total time spent is greater than 50% in coordination of care (as documented) at patient's floor/unit and/or counseling patient: (1) Acute respiratory failure with hypoxia Status: Acute Assessment and plan: Acute hypercapenic respiratory failiure with hypoxia, CT eng for PE, trop x 2 negative, Patient last ABG was good, she is off bipap now for 48 hrs On baseline oxygen requirements now Current Visit: Yes (2) Community acquired pneumonia Status: Acute Assessment and plan: Treat with IV aBX, but changed to vancomycin and zosyn. microbiology neg contiue same, D5 today will d/c abx in AM and if stable will Xfer to NH. Current Visit: Yes (3) COPD with acute exacerbation Status: Acute Assessment and plan: on duonebx q4 hrs, IV solumedrol, Antibiotics, BIPAP and incentive spirometery Patient given her severe scoliosis and restrictive lung disease will take a long time to recover her pulmonary function. given her tenous resp status monitor for additional day before discharge. Current Visit: Yes Medical - PN: Qual - Stroke Symptom Onset Unknown: No - VTE Deep Vein Thrombosis/Pulmonary Embolism Present on Admission: No
[2016-06-23] MEDS ORDERED: BISACODYL 5 MG TABLET PO PRN (13:34)
[2016-06-23] MEDS ORDERED: NALOXONE HCL 0.4 MG/ML VIAL IV PRN (13:34)
[2016-06-23] MEDS ORDERED: IPRATROPIUM/ALBUTEROL 3 ML AMPUL.NEB NEB ONE ×2 (13:34)
[2016-06-23] MEDS ORDERED: FLEETS ADULT ENEMA PR PRN (13:34)
[2016-06-23] MEDS ORDERED: ACETAMINOPHEN 325 MG TABLET PO PRN (13:34)
[2016-06-23] MEDS ORDERED: ONDANSETRON 4 MG/2 ML VIAL IV PRN (13:34)
[2016-06-23] MEDS ORDERED: ATORVASTATIN 20 MG TABLET PO SCH (21:00)
[2016-06-23] MEDS ORDERED: methylPREDNISolone SOD SUCC 40 MG/ML VIAL IV SCH (21:00)
[2016-06-23] MEDS: BENZONATATE 100 MG CAPSULE PO PRN (21:14)
[2016-06-24] MEDS: 0.9 % SODIUM CHLORIDE 10 ML SYRINGE IV SCH ×3 (00:17→12:08)
[2016-06-24] MEDS: PIPERACILLIN SODIUM/TAZOBACTAM 3.375 GM in DEXTROSE 5% IN WATER 50 ML IV SCH ×3 (00:17→12:08)
[2016-06-24] MEDS: IPRATROPIUM/ALBUTEROL 3 ML AMPUL.NEB NEB SCH ×3 (03:48→10:31)
[2016-06-24 05:11] LABS: Basophils # (Auto) 0 K/mcL (0.0-0.3); Basophils % (Auto) 0.1 % (0.0-2.0); Eosinophils # (Auto) 0.1 K/mcL (0.0-0.7); Eosinophils % (Auto) 0.6 % (0.0-7.0); Granulocytes % (Auto) 88.9 % (38.0-78.0); Lymphocytes # (Auto) 0.8 K/mcL (1.5-4.8); Lymphocytes % (Auto) 8.8 % (15.5-49.0); Mean Cell Volume 91.7 fL (80.0-100.0); Mean Corpuscular HGB Conc 31.1 g/dL (31.0-36.0); Mean Corpuscular Hemoglobin 28.5 pg (26.0-34.0); Monocytes # (Auto) 0.2 K/mcL (0.1-0.9); Monocytes % (Auto) 1.6 % (1.0-9.0); Platelet Count 322 K/mcL (140-440); RBC 4.34 M/mcL (4.00-5.20); Red Cell Distribution Width 14.6 % (11.5-14.5)
[2016-06-24 05:38] LABS: ALT/SGPT 18 U/l (0-40); Albumin 3.6 gm/dL (3.2-5.2); Albumin/Globulin Ratio 1.3 (1.0-2.3); Alkaline Phosphatase 77 U/L (39-117); Bilirubin,Direct < 0.2 mg/dL (0.0-0.3); Blood Urea Nitrogen 9 mg/dl (8-23); Gamma Glutamyl Transpeptidase 14 U/L (5-36); Magnesium 2.1 mg/dL (1.6-2.5); Phosphorous 3.8 mg/dL (2.7-4.5)
[2016-06-24] MEDS: POTASSIUM CHLORIDE 10 MEQ TABLET PO SCH (07:46)
[2016-06-24] MEDS: BENZONATATE 100 MG CAPSULE PO PRN (07:46)
[2016-06-24] MEDS ORDERED: ASPIRIN 81 MG TAB.CHEW PO SCH (09:00)
[2016-06-24] MEDS ORDERED: MULTIVIT,THER IRON,CA,FA & MIN 1 TABLET PO SCH (09:00)
[2016-06-24] MEDS: HEPARIN 5,000 UNIT/ML VIAL SQ SCH (09:27)
[2016-06-24] MEDS: GABAPENTIN 400 MG CAPSULE PO SCH (09:27)
[2016-06-24] MEDS: NEUTRA PHOS 1 PACKET PO SCH (09:28)
[2016-06-24] MEDS: VANCOMYCIN 1,000 MG in 0.9 % SODIUM CHLORIDE 250 ML IV SCH (09:52)
[2016-06-24] MEDS: methylPREDNISolone SOD SUCC 40 MG/ML VIAL IV SCH (09:56)
--- NOTE | 2016-06-24 11:57 | Discharge Summary ---
Medical - DS: Prov Patient information: Note initiated : 06/24/16 at 11:50 am Service Date, if different from initiated Date: [] Patient: Alice Maradiaga 76 y/o F admitted on 06/19/16 for Confusion, SOB/ Pneumonia. Chief Complaint: [] Date of admission: 06/19/16 17:25 Discharge date: 06/24/16 Primary care physician: [f_Reg Prim Care Provider] Admitting clinician: Kailash Aguilar Discharging clinician: Kailash Aguilar Medical - DS: Meds - Discharge Medications Prescriptions: Benzonatate [Tessalon] 100 mg PO QIDP PRN #28 capsule PRN Reason: Cough Budesonide [Pulmicort] 1 mg IH BID #60 ampul.neb Ipratropium/Albuterol [Duoneb] 3 ml NEB Q6HP #240 ampul.neb predniSONE [Prednisone] 40 mg PO ONCE #14 tablet Active and Home Medications: Home Medications Calcium Carb/D3/Magnesium/Zinc [Udopscw-Jtv-Zaas-Vit D Tablet] 1 each PO DAILY 06/17/16 [History Confirmed 06/17/16 Last Taken Unknown] Lactase [Lactaid Fast Act] 9,000 unit PO AC 06/17/16 [History Confirmed Last Taken 06/17/16] Potassium Chloride 10 meq PO DAILY 06/17/16 [History Confirmed 06/17/16 Last Taken Unknown] Propranolol HCl 20 mg PO DAILY 06/17/16 [History Confirmed 06/17/16 Last Taken Unknown] Psyllium Husk [Daily Fiber] 1 tab PO DAILY 06/17/16 [History Confirmed 06/17/16 Last Taken Unknown] Torsemide [Demadex] 30 mg PO BID 06/17/16 [History Confirmed 06/17/16 Last Taken Unknown] diphenhydrAMINE [Benadryl] 25 mg PO HSP PRN 06/17/16 [History Confirmed Last Taken Unknown] Active Medications Acetaminophen (Tylenol) 650 mg PO Q6HP PRN PRN Reason: PAIN/FEVER > 101 Last Admin: 06/23/16 20:47 Dose: 650 mg Albuterol/Ipratropium (Duoneb) 3 ml NEB Q4HRT [facility] Last Admin: 06/24/16 10:31 Dose: 3 ml Aspirin (Aspirin) 81 mg PO DAILY [facility] Last Admin: 06/24/16 09:27 Dose: 81 mg Atorvastatin Calcium (Lipitor) 20 mg PO HS [facility] Last Admin: 06/23/16 20:46 Dose: 20 mg Benzonatate (Tessalon) 100 mg PO QIDP PRN PRN Reason: Cough Last Admin: 06/24/16 07:46 Dose: 100 mg Bisacodyl (Dulcolax) 10 mg PO DAILYP PRN PRN Reason: Constipation Gabapentin (Neurontin) 400 mg PO TID [facility] Last Admin: 06/24/16 09:27 Dose: 400 mg Heparin Sodium (Porcine) (Heparin) 5,000 unit SQ Q12 [facility] Last Admin: 06/24/16 09:27 Dose: 5,000 unit Piperacillin Sod/Tazobactam (Sod 3.375 gm/ Dextrose) 50 mls @ 100 mls/hr IV Q6 [facility] Last Admin: 06/24/16 06:02 Dose: 100 mls/hr Vancomycin HCl 1,000 mg/ (Sodium Chloride) 250 mls @ 250 mls/hr IV Q12 [facility] Last Admin: 06/24/16 09:52 Dose: 250 mls/hr Iron Carb/Multivit/Branch Officer/Folic Acid (Multivitamin W/Minerals) 1 tab PO DAILY [facility] Last Admin: 06/24/16 09:27 Dose: 1 tab Methylprednisolone Sodium Succinate (Solu-Medrol) 40 mg IV Q12 [facility] Last Admin: 06/24/16 09:56 Dose: 40 mg Naloxone HCl (Narcan) 0.1 mg IV Q2MIN PRN PRN Reason: Opiate Reversal Ondansetron HCl (Zofran) 4 mg IV Q4HP PRN PRN Reason: Nausea And Vomiting Potassium Chloride (Kdur) 10 meq PO BIDCC [facility] Last Admin: 06/24/16 07:46 Dose: 10 meq Potassium/Phosphorus/Sodium (Neutra Phos) 1 packet PO BID [facility] Last Admin: 06/24/16 09:28 Dose: 1 packet Sodium Biphosphate/Sodium Phosphate (Fleets Adult) 1 dose SD Q3DP PRN PRN Reason: Constipation Sodium Chloride (Saline Flush) 10 ml IV Q8 [facility] Last Admin: 06/24/16 06:03 Dose: 10 ml Medical - DS: Hosp Hospital course: Mr. Maradiaga is a 76 year old female who presented to the hospital with cough, not feeling well and hallucinations, and increased oxygen requirement. Admitted to the hospital with Pneumonia and COPD exacerbation. The patient was Initially treated with IV rocephin and IV zithromax in the hostpial, the patients microbiology was negative, however on day 3 the patients condition worsened, she became more short of breath and more tachypnenic, her ABG showed acute respiratory acidosis and Co2 retention. Her antibiotic covergate was broadened and she was given vancomycin and zosyn which she completed for 5 days. The patients respiratory failure was treated with oxygen supplementation, and BIPAP, she needed bipap for 2 days, and has a tendency to hallucinate or become delirious if there is co2 retention. The patient on the day of discharge has been off bipap for 2 days without any hallucinations or delirum. THe only major complaint she endorses is cough. The patient has h/o copd and has severe scoloisos, which results in significant restrictive lung disease. This makes it difficult for her to have adequate ventilation, resulting in respiratory acidosis. She needs to maintain aggresive pulmonary toilet, (Incetive spirometery and acapella have been provided) To prevent relapse. The patient is being discharged on oxygen at this time, however it seems based on clinic vitals, she was not using oxygen at home, she can be weaned off oxygen as tolerated at the [place] or by PCP. The patient also has very poor inspiratory effort, she was not able to draw in more than 500-600 ml of tidal volume on Incentive spirometer. She was given an inhaled CS by her PCP, but it seems that she will not be able to use it successfully, even with the use of a spacer. We decided to switch her to nebulizer treatments with pulmicort. The patient on dicharge is back to her baseline mental status, but is weak and needs sub acute rehab. She will be discharged to the facility, [facility] for further treatment. She will be on a taper of prednisone. All her home medications have been resumed, no changes done except above ( nebulizer/ duonebs/ pulmicort) Discharge diagnosis: Pneumonia/ COPD exacerbation - Time Spent with Patient Total time spent providing and/or coordinating discharge services: Greater than 30 minutes Medical - DS: Exam - Constitutional Vitals: Vital Signs Temp Pulse Pulse Resp BP Pulse Ox 06/24/16 10:52 82 20 06/24/16 08:00 98.9 F 88 28 H 142/61 96 06/24/16 06:57 92 H 24 94 06/24/16 04:00 97.9 F 98 H 28 H 144/73 93 06/23/16 23:05 97.4 F L 90 28 H 159/75 94 06/23/16 22:51 92 H 20 06/23/16 20:00 98.7 F 89 28 H 137/70 95 06/23/16 19:20 89 16 06/23/16 19:11 96 06/23/16 16:00 18 06/23/16 15:23 92 H 16 06/23/16 14:00 98.3 F 77 18 135/88 99 06/23/16 12:08 104 H 26 H 146/83 96 06/23/16 12:00 98.9 F 106 H 21 144/104 91 Intake and Output 06/23/16 06/24/16 06/24/16 21:59 05:59 13:59 Intake Total 540 / 540 250 / 250 Output Total 450 / 450 500 / 500 Balance 90 / 90 -250 / -250 Intake: IV 300 / 300 50 / 50 Dextrose 5% in Water 50 50 / 50 50 / 50 ml @ 100 mls/hr IV Q6 MARGARITA with Zosyn 3.375 gm Rx#: [id number] Sodium Chloride 0.9% 250 250 / 250 ml @ 250 mls/hr IV Q12 MARGARITA with Vancomycin 1,000 mg Rx#:[id number] Oral 240 / 240 200 / 200 Output: Void Amount 450 / 450 500 / 500 Other: # Bowel Movements 1 1 Weight 146 lb General appearance: cooperative, no acute distress - Head Head exam: Present: atraumatic, normal inspection - Neck Neck exam: Present: normal inspection - Respiratory Respiratory exam: Present: normal respiratory exam. Absent: accessory muscle use, stridor, wheezes - Cardiovascular Cardiovascular exam: Present: normal rate and rhythm, +S1, +S2 - GI/Abdominal GI/Abdominal exam: Present: normal bowel sounds, soft - Neurological Exam Neurological exam: Present: alert, CN II-XII intact, oriented X3. Absent: motor sensory deficit Medical - DS: Data Labs on day of discharge: Labs from last 24 hours 06/24/16 06/24/16 04:05 04:05 WBC 9.6 RBC 4.34 Hgb 12.4 Hct 39.8 MCV 91.7 MCH 28.5 MCHC 31.1 RDW 14.6 H Plt Count 322 MPV 7.4 Gran % 88.9 H Lymph % (Auto) 8.8 L [place] % (Auto) 1.6 Eos % (Auto) 0.6 Baso % (Auto) 0.1 Gran # 8.5 H Lymph # 0.8 L [place] # 0.2 Eos # 0.1 Baso # 0 Sodium 145 Potassium 4.2 Chloride 106 Carbon Dioxide 30 Anion Gap 9.0 BUN 9 Creatinine 0.6 GFR Calculation 88 Glucose 121 H Uric Acid 1.0 L Calcium 9.0 Phosphorus 3.8 Magnesium 2.1 Total Bilirubin 0.2 Direct Bilirubin < 0.2 GGT 14 AST 17 ALT 18 Alkaline Phosphatase 77 Lactate Dehydrogenase 209 Total Protein 6.3 Albumin 3.6 Globulin 2.7 Albumin/Globulin Ratio 1.3 Triglycerides 128 Medical - DS: A/P - Patient/Caregiver Discharge Instructions Diet: Low Sodium (2gm), Cardiac Additional Instructions: Follow up with PCP in 1-2 weeks Take prednisone 40mg once daily x 3 days, then 20mg once daily x 3 days, then 10mg once daily x 3 days, then 5mg once daily x 3 days then stop Aggresive pulmonary toilet, with incentive spirometery and acapella Wean off oxygen as tolerated, patient target osat is 88-92% Go back to the ER if worsening shortness of breath, confusion, fever or chest pains. - Problem Maintenance (1) Acute respiratory failure with hypoxia Status: Acute (2) Community acquired pneumonia Status: Acute (3) COPD with acute exacerbation Status: Acute - Follow up Plan Follow up with: Liliane Solano, [place], [employer]AL [Primary Care Provider] - Disposition: Xfer SNF Prognosis: Good Rehab Potential: Fair I certify that the patient requires SNF services: Yes Overall status at discharge: patient is progressing back to baseline Medical - DS: Qual - VTE Deep Vein Thrombosis/Pulmonary Embolism Present on Admission: No
== END 2016-06-24 14:20 | DRG 193 ==
LOC: ICU 07:46 → ED 07:46 → ICU 15:42 → MEDSUR 06-23 14:29
PROVIDERS: ADMIT Internal Medicine; ATTEND Internal Medicine

== ENCOUNTER 2016-07-30 08:27 | Inpatient (IN) ==
[~2016-07-30 08:27] MED LIST: PROPOFOL 200 MG/20 ML VIAL IV ONE; ROCURONIUM 10 MG/ML ML IV ONE; SUCCINYLCHOLINE 20 MG/ML ML IV ONE; fentaNYL 100 MCG/2 ML VIAL IV ONE
[2016-07-30] MEDS ORDERED: IOPAMIDOL 100 ML BOTTLE IJ ONE (08:28)
[2016-07-30] MEDS ORDERED: ONDANSETRON 4 MG/2 ML VIAL ONE (08:41)
[2016-07-30] MEDS ORDERED: PROMETHAZINE 25 MG/ML VIAL ONE (08:57)
[2016-07-30] MEDS ORDERED: ONDANSETRON 4 MG/2 ML VIAL IV ONE ×2 (09:06→10:43)
[2016-07-30] MEDS ORDERED: PROMETHAZINE 25 MG/ML VIAL IV ONE ×2 (09:07→12:22)
--- NOTE | 2016-07-30 09:26 | Emergency Department Note ---
Abdominal Pain HPI - General Chief Complaint: Abdominal Pain Stated Complaint: abdominal pain Time Seen by Provider: 07/30/16 08:48 Source: patient Mode of arrival: EMS Limitations: no limitations - History of Present Illness HPI Narrative: This patient apparently woke up with some abdominal pain this morning felt the epigastrium. Some nausea. She has been given fentanyl and is now not really able to answer all questions. Her daughter is here with her. Complaint: abdominal pain Onset (ago): hour(s) Consistency: constant Location: epigastric Quality: cramping Radiation: none - Related Data Home Medications Medication Instructions Recorded Confirmed multivit with 1 tab PO QDAY tab 05/22/15 07/30/16 gbrrkvdn-bwhn-KQ-lutein 8 mg iron-400 mcg-300 mcg tablet Calcium Carb/D3/Magnesium/Zinc 1 each PO DAILY 06/17/16 07/30/16 [Gxipuvr-Obw-Npoq-Vit D Tablet] Lactase [Lactaid Fast Act] 9,000 unit PO AC 06/17/16 07/30/16 Potassium Chloride 10 meq PO DAILY 06/17/16 07/30/16 Psyllium Husk [Daily Fiber] 1 tab PO DAILY 06/17/16 07/30/16 diphenhydrAMINE [Benadryl] 25 mg PO HSP PRN 06/17/16 07/30/16 propranolol 10 mg tablet 10 mg PO QDAY tab 07/10/16 07/30/16 torsemide 20 mg tablet 20 mg PO BID tab 07/10/16 07/30/16 Clopidogrel Bisulfate [Plavix] 75 mg PO DAILY 07/30/16 07/30/16 portable oxygen 2 lf FACUNDO DAILY 07/30/16 07/30/16 Previous Rx's Medication Instructions Recorded aspirin 81 mg tablet,delayed 81 mg PO QDAY #30 tab 05/22/15 release beclomethasone dipropionate 80 160 mcg INHALATION BID #8.7 g 12/05/15 mcg/actuation aerosol inhaler gabapentin 400 mg capsule 400 mg PO TID #90 cap 04/03/16 diclofenac sodium 75 mg 75 mg PO BID #60 tab 04/23/16 tablet,delayed release Benzonatate [Tessalon] 100 mg PO QIDP PRN #28 capsule 06/24/16 Budesonide [Pulmicort] 1 mg IH BID #60 ampul.neb 06/24/16 Ipratropium/Albuterol [Duoneb] 3 ml NEB Q6HP #240 ampul.neb 06/24/16 albuterol sulfate 2.5 mg/3 mL 2.5 mg INHALATION Q4H PRN 30 Days 07/17/16 (0.083 %) solution for nebulization atorvastatin 20 mg tablet 20 mg PO QDAY #30 tab 07/28/16 Allergies Allergy/AdvReac Type Severity Reaction Status Date / Time cetirizine Allergy Unknown itching Verified 07/10/16 09:41 codeine AdvReac Mild Dizziness Verified 07/10/16 09:41 bee stings Allergy Unknown Anaphylaxis Uncoded 07/10/16 09:41 trees Allergy Unknown Sneezing Uncoded 07/10/16 09:41 wine Allergy Unknown Anaphylaxis Uncoded 07/10/16 09:41 Review of Systems Limitations: ROS unobtainable due to patients medical condition Abdominal Pain PMH - Past Medical History Medical history: Reports: COPD, hyperlipidemia, hypertension, osteoporosis, other (Hyperlipidemia, PACs, lipidemia, retention, 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 low oxygen saturation with activity urinary incontinence) Reports: diverticulosis Surgical history ED: Reports: appendectomy, cataract, cholecystectomy, hysterectomy, orthopedic, other, VIDAL/BSO - Social History Alcohol use: Reports: Rarely Drug use: Reports: none Physical Exam - General Limitations: no limitations General appearance: alert - Head Head exam: atraumatic - Eye Eye exam: Present: normal appearance - ENT ENT exam: normal exam - Neck Neck exam: Present: normal inspection - Chest Chest inspection: Present: normal inspection - Respiratory Respiratory exam: Present: normal lung sounds bilaterally - Cardiovascular Cardiovascular exam: Present: regular rate, normal rhythm, normal heart sounds - Abdominal Exam Abdominal exam: Present: soft, distention, normal bowel sounds. Absent: tenderness, guarding, rebound, rigidity - Skin Skin exam: Present: warm, dry, intact Course Vital Signs Temperature 97.8 F 07/30/16 08:35 Pulse Rate 58 L 07/30/16 08:35 Respiratory Rate 16 07/30/16 08:35 Blood Pressure 123/68 07/30/16 08:35 Pulse Oximetry (%) 99 07/30/16 08:35 Temperature 97.8 F 07/30/16 08:35 Pulse Rate 80 07/30/16 14:31 Respiratory Rate 25 H 07/30/16 14:31 Blood Pressure 115/52 07/30/16 14:31 Pulse Oximetry (%) 99 07/30/16 14:31 Abdominal Pain - MDM Narrative Medical decision making narrative: Chest his case with Dr. Whipple and Dr. Aguilar the patient will be admitted to the hospital. - Lab Data Lab results reviewed: Yes I reviewed the patient's lab results. Result diagrams: 07/30/16 09:33 07/30/16 09:33 Lab Results 07/30/16 07/30/16 07/30/16 Range/Units 09:33 09:33 12:27 WBC 9.7 (4.5-11.0) K/mcL RBC 3.68 L (4.00-5.20) M/mcL Hgb 10.7 L (12.0-15.0) g/dL Hct 34.0 L (36.0-48.0) % MCV 92.3 (80.0-100.0) fL MCH 29.1 (26.0-34.0) pg MCHC 31.5 (31.0-36.0) g/dL RDW 15.6 H (11.5-14.5) % Plt Count 390 (140-440) K/mcL MPV 7.2 L (7.4-10.4) fL Gran % 82.7 H (38.0-78.0) % Lymph % (Auto) 12.7 L (15.5-49.0) % Ness % (Auto) 1.9 (1.0-9.0) % Eos % (Auto) 2.3 (0.0-7.0) % Baso % (Auto) 0.4 (0.0-2.0) % Gran # 8.0 (1.8-8.0) K/mcL Lymph # 1.2 L (1.5-4.8) K/mcL Ness # 0.2 (0.1-0.9) K/mcL Eos # 0.2 (0.0-0.7) K/mcL Baso # 0 (0.0-0.3) K/mcL Sodium 145 (133-145) mmol/L Potassium 3.4 (3.3-5.1) mmol/L Chloride 100 (96-108) mmol/L Carbon Dioxide 39 H (22-30) mmol/L Anion Gap 6.0 L (8-16) BUN 9 (8-23) mg/dl Creatinine 0.7 (0.6-1.1) mg/dl GFR Calculation 84 Glucose 142 H (70-105) mg/dL Calcium 9.0 (8.6-10.4) mg/dl Total Bilirubin 0.2 (0.0-1.0) mg/dL AST 21 (0-37) U/l ALT 13 (0-40) U/l Alkaline Phosphatase 91 (39-117) U/L Total Protein 6.3 (5.9-8.4) gm/dL Albumin 3.4 (3.2-5.2) gm/dL Globulin 2.9 (2.2-3.7) gm/dL Albumin/Globulin Ratio 1.2 (1.0-2.3) Lipase 177 H (7-60) U/L Urine Color Yellow Urine Appearance Hazy Urine pH 6.0 (5.0-9.0) Ur Specific [place] 1.011 (1.000-1.035) Urine Protein Neg (NEG) mg/dL Urine Glucose (UA) Negative (NEG) mg/dL Urine Ketones Neg (NEG) mg/dL Urine Occult Blood Neg (<0.03) mg/dL Urine Nitrate Neg (NEG) Urine Bilirubin Neg (NEG) mg/dL Urine Urobilinogen Neg (NEG) mg/dL Ur Leukocyte Esterase 25 A (NEG) /uL Urine RBC 1 (0-1) /hpf Urine WBC 3 (0-4) /hpf Ur Squamous Epith Cells 4 (0-4) /hpf Ur Transition Epith Cell 1 (0-2) /hpf Urine Bacteria 0 (0) /hpf Hyaline Casts 41 H (0-2) /lpf Urine Mucus Few (0) /hpf Ur Culture Indicated? No - Radiology Data Radiology results reviewed: Yes I reviewed the patient's radiology results. (CT scan shows evidence of gastric perforation with free air) Disposition Clinical Impression: Perforated gastric ulcer Disposition: Xfer As Inpt ([facility]) Condition: Serious Referrals: Liliane Solano, [place], [employer] WAREHOUSING MANAGER [Primary Care Provider] - Time of Disposition: 14:45
--- NOTE | 2016-07-30 09:33 | XRay Report ---
CLINICAL INFORMATION: Abdominal pain and distention COMPARISON: None. FINDINGS: The stool gas pattern is unremarkable. There is no soft tissue mass, organomegaly or significant calcification. No free air. Severe dextroscoliotic curve of thoracic spine - again noted IMPRESSION: No acute disease Interpreted and Authenticated by: Rm Moss 07/30/16
[2016-07-30] MEDS ORDERED: HYDROmorphone 2 MG/ML SYRINGE IV PRN ×2 (10:05→16:14)
[2016-07-30] MEDS: 0.9 % SODIUM CHLORIDE 1,000 ML IV SCH ×4 (10:10→22:15)
[2016-07-30 10:15] LABS: Basophils # (Auto) 0 K/mcL (0.0-0.3); Basophils % (Auto) 0.4 % (0.0-2.0); Eosinophils # (Auto) 0.2 K/mcL (0.0-0.7); Eosinophils % (Auto) 2.3 % (0.0-7.0); Granulocytes % (Auto) 82.7 % (38.0-78.0); Lymphocytes # (Auto) 1.2 K/mcL (1.5-4.8); Lymphocytes % (Auto) 12.7 % (15.5-49.0); Mean Cell Volume 92.3 fL (80.0-100.0); Mean Corpuscular HGB Conc 31.5 g/dL (31.0-36.0); Mean Corpuscular Hemoglobin 29.1 pg (26.0-34.0); Monocytes # (Auto) 0.2 K/mcL (0.1-0.9); Monocytes % (Auto) 1.9 % (1.0-9.0); Platelet Count 390 K/mcL (140-440); RBC 3.68 M/mcL (4.00-5.20); Red Cell Distribution Width 15.6 % (11.5-14.5)
[2016-07-30 10:43] LABS: ALT/SGPT 13 U/l (0-40); Albumin 3.4 gm/dL (3.2-5.2); Albumin/Globulin Ratio 1.2 (1.0-2.3); Alkaline Phosphatase 91 U/L (39-117); Blood Urea Nitrogen 9 mg/dl (8-23); Lipase 177 U/L (7-60)
[2016-07-30] MEDS: NALOXONE HCL 0.4 MG/ML VIAL IV PRN ×2 (12:30→13:40)
[2016-07-30] MEDS ORDERED: NALOXONE HCL 0.4 MG/ML VIAL ONE (12:39)
[2016-07-30] MEDS ORDERED: NALOXONE HCL 0.4 MG/ML VIAL IV ONE (12:46)
[2016-07-30] MEDS ORDERED: NALOXONE HCL 0.4 MG/ML VIAL IV PRN (12:49)
[2016-07-30 13:33] LABS: Appearance,Urine HAZY; Bacteria,Urine 0 /hpf (0); Bilirubin,Urine NEG (NEG); Color,Urine YELLOW; Glucose,Urine (UA) NEGATIVE (NEG); Leukocyte Esterase,Urine 25 /uL (NEG); Mucus,Urine FEW /hpf (0); Nitrate,Urine NEG (NEG); Protein,Urine NEG (NEG); Specific Gravity,Urine 1.011 (1.000-1.035); Urine Blood NEG mg/dL (<0.03); Urine Hyaline Cast 41 /lpf (0-2); Urine RBC 1 /hpf (0-1); Urine Squamous Epithelial Cell 4 /hpf (0-4); Urine Transitional Epi Cells 1 /hpf (0-2); Urine WBC 3 /hpf (0-4); Urobilinogen,Urine NEG (NEG)
[2016-07-30] MEDS ORDERED: LEVOFLOXACIN 500 MG/100 ML BAG IV ONE (14:44)
[2016-07-30] MEDS ORDERED: PIPERACILLIN SODIUM/TAZOBACTAM 3.375 GM in DEXTROSE 5% IN WATER 50 ML IV SCH (14:45)
--- NOTE | 2016-07-30 14:56 | Cat Scan Report ---
CLINICAL INFORMATION: Epigastric pain and vomiting COMPARISON: 07/29/[address] TECHNIQUE: Following enteric contrast, 80 cc of Isovue-300 were injected and 60 seconds later 2.5 mm helical slices were obtained from the mid heart through the iliac crest. Following reconstructions, sagittal, coronal and axial reformations were processed. Exam was reviewed at bone, lung and soft tissue windows Eight minutes later repeat 5 mm helical slices were obtained from the mid heart through the kidneys. FINDINGS: Lung bases show moderate-sized region of consolidated atelectasis or, less likely, infiltrate in both posterior medial lower lobes. No effusions. The heart is moderately enlarged. Severe scoliotic changes distort the chest cavity - as previously seen. Images should the abdomen show the gallbladder is surgically absent. The pancreas is unremarkable. Pancreatic duct is approximately 3 mm. There is mild fatty change within the liver without focal lesion. Intrahepatic and common bile ducts are normal caliber - CBD is 6 mm. Mild atrophy of the left kidney due to unilateral left renal artery stenosis (greater than 75%) with compensatory hypertrophy of the right kidney is again seen. Nonobstructing stones in the calyces of the left kidney are seen as before.. The aorta is normal in contour and caliber. 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 Right renal artery, SMA and GIN are normal. The spleen and adrenal glands are unremarkable. There is a small perforating ulcer through the anterior gastric wall (image 57) allow extravasation of air and gastric fluid into the the epigastric mesenteric cavity. A modest amount of fluid is noted in the perihepatic and perisplenic spaces with free air in the anterior central mesenteric cavity. Small amount of free air noted along the ligament teres. There is mild dilatation and wall/plica circulares thickening of the small bowel in the left upper quadrant. Visualized colon is grossly normal. IMPRESSION: 1. Perforated ulcer through the anterior wall of the proximal gastric body allowing extravasation of air and gastric contents into the mesenteric cavity of the epigastrium. Moderate free fluid is noted in the anterior perihepatic and perisplenic spaces. 2. Mild thickening the wall and plica circulares folds of small bowel loops in the left upper quadrant - suspect inflammation related to adjacent gastric contents 3. 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 4. 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 Compensatory hypertrophy of the right kidney - both stable. 5. A few nonobstructing stones in the calyces of the left kidney are stable since the remote study. 6. Moderate atelectasis or, less likely, infiltrate in both posterior medial lower lobes - new. Consider aspiration Interpreted and Authenticated by: Rm Moss 07/30/16
--- NOTE | 2016-07-30 15:26 | XRay Report ---
CLINICAL INFORMATION: NG tube placement COMPARISON: None. FINDINGS: NG tube overlies the mid gastric body. Stool gas pattern is unremarkable. The known free air (from CT) is not well seen. Moderate consolidation atelectasis or infiltrate both lower lobes seen as before IMPRESSION: NG tube in satisfactory position overlying the mid gastric body Interpreted and Authenticated by: Rm Moss 07/30/16
[2016-07-30] MEDS ORDERED: POTASSIUM CHLORIDE 40 MEQ in DEXTROSE 5% IN WATER 500 ML IV PRN (16:14)
[2016-07-30] MEDS ORDERED: ACETAMINOPHEN 1,000 MG/100 ML BOTTLE IV PRN (16:14)
[2016-07-30] MEDS ORDERED: MAGNESIUM SULFATE 2 GM/50 ML BAG IV PRN (16:14)
[2016-07-30] MEDS ORDERED: ONDANSETRON 4 MG/2 ML VIAL IV PRN (16:14)
[2016-07-30] MEDS ORDERED: LEVOFLOXACIN 750 MG/150 ML BAG IV SCH (16:14)
[2016-07-30] MEDS ORDERED: metroNIDAZOLE 500 MG/100 ML BAG IV SCH (16:14)
[2016-07-30] MEDS: metroNIDAZOLE 500 MG/100 ML BAG IV SCH (17:15)
--- NOTE | 2016-07-30 17:30 | General Surg History&Physical ---
History of Present Illness Patient information: Note initiated : 07/30/16 at 5:28 pm Service Date, if different from initiated Date: [] Patient: Alice Maradiaga 76 y/o F admitted on 07/30/16 for Abdominal Pain. Chief Complaint: [] Chief complaint: abdominal pain HPI: Ms. Maradiaga is a 76 year old female who is seen in the emergency room for perforated viscus. The patient does not have any history of known prior gastric ulcer. She awakened earlier in the morning with pain in her epigastrium with associated nausea. The pain started in the epigastrium). She did not have vomiting. She has been taking diclofenac for arthritic pain at least twice daily. She has not taken of the nonsteroidals. When seen in the emergency room she was noted to have free intraperitoneal air and a tender abdomen primarily in the epigastrium and right upper quadrant. She does not have leukocytosis. Abdominal x-rays and CT confirm bilateral subphrenic air and subhepatic air as well as anterior gas on the supine CT. It is most likely that s a perforated gastric ulcer. The patient was somewhat somnolent So I discussed her treatment with her daughter. She has severe obstructive and restrictive lung disease and will need to have baseline treatment prior to operation as long as she remains stable. Nasogastric tube has been inserted and is in adequate position. She will be covered with antibiotics, get duoneb treatment throughout the nightand will be explored in the morning for Mk patch closure of her perforated ulcer. I will ask the hospitalist to evaluate her because she will need probable postoperative ventilation. Review of Systems - Constitutional fatigue, malaise, weakness, weight loss - EENT Nose, mouth and throat: dizziness, dry mouth - Cardiovascular dyspnea on exertion, irregular heart rhythm, orthopnea, palpatations, no chest pain, no claudication - Respiratory cough, dyspnea on exertion, chest congestion - Gastrointestinal abdominal pain, heartburn, nausea, no vomiting - Genitourinary Genitourinary: urinary incontinence, urinary urgency - Musculoskeletal abnormal gait, arthralgias, back pain, deformity, joint swelling, loss of height , myalgias, stiffness - Integumentary no changing lesions, no new lesions, no rash - Neurological abnormal gait, dizziness, vertigo - Psychiatric anxiety, confusion - Endocrine fatigue, palpitations - Hematologic/Lymphatic no easy bleeding, no easy bruising, no lymphadenopathy - Allergic/Immunologic no tongue swelling, no throat swelling, no uticaria, no wheezing, no lip swelling Past History Past medical history: iverticulosis hypertension Chronic obstructive lung disease Chronic restrictive lung disease Chronic hypoxemia Severe scoliosis Left subclavian steal syndrome Past surgical history: appendectomy Cholecystectomy Abdominal hysterectomy Bilateral salpingo-oophorectomy Right rotator cuff repair Past family history: diabetes mellitus Coronary artery disease Past social history: lives locally Former smoker Occasional alcohol use No drug use Medications and Allergies Home Medications Medication Instructions Recorded Confirmed Type aspirin 81 mg tablet,delayed 81 mg PO QDAY #30 tab 05/22/15 07/30/16 Rx release multivit with 1 tab PO QDAY tab 05/22/15 07/30/16 History egrsphmj-byed-YK-lutein 8 mg iron-400 mcg-300 mcg tablet beclomethasone dipropionate 80 160 mcg INHALATION BID #8.7 g 12/05/15 07/30/16 Rx mcg/actuation aerosol inhaler gabapentin 400 mg capsule 400 mg PO TID #90 cap 04/03/16 07/30/16 Rx diclofenac sodium 75 mg 75 mg PO BID #60 tab 04/23/16 07/30/16 Rx tablet,delayed release Calcium Carb/D3/Magnesium/Zinc 1 each PO DAILY 06/17/16 07/30/16 History [Knifhnx-Sja-Noef-Vit D Tablet] Lactase [Lactaid Fast Act] 9,000 unit PO AC 06/17/16 07/30/16 History Potassium Chloride 10 meq PO DAILY 06/17/16 07/30/16 History Psyllium Husk [Daily Fiber] 1 tab PO DAILY 06/17/16 07/30/16 History diphenhydrAMINE [Benadryl] 25 mg PO HSP PRN 06/17/16 07/30/16 History Benzonatate [Tessalon] 100 mg PO QIDP PRN #28 capsule 06/24/16 07/30/16 Rx Budesonide [Pulmicort] 1 mg IH BID #60 ampul.neb 06/24/16 07/30/16 Rx Ipratropium/Albuterol [Duoneb] 3 ml NEB Q6HP #240 ampul.neb 06/24/16 07/30/16 Rx propranolol 10 mg tablet 10 mg PO QDAY tab 07/10/16 07/30/16 History torsemide 20 mg tablet 20 mg PO BID tab 07/10/16 07/30/16 History albuterol sulfate 2.5 mg/3 mL 2.5 mg INHALATION Q4H PRN 30 Days 07/17/16 Rx (0.083 %) solution for nebulization atorvastatin 20 mg tablet 20 mg PO QDAY #30 tab 07/28/16 07/30/16 Rx Clopidogrel Bisulfate [Plavix] 75 mg PO DAILY 07/30/16 07/30/16 History portable oxygen 2 lf FACUNDO DAILY 07/30/16 07/30/16 History Allergies Allergy/AdvReac Type Severity Reaction Status Date / Time cetirizine Allergy Unknown itching Verified 07/10/16 09:41 codeine AdvReac Mild Dizziness Verified 07/10/16 09:41 bee stings Allergy Unknown Anaphylaxis Uncoded 07/10/16 09:41 trees Allergy Unknown Sneezing Uncoded 07/10/16 09:41 wine Allergy Unknown Anaphylaxis Uncoded 07/10/16 09:41 Exam Temp Pulse Resp BP Pulse Ox 97.8 F 98 H 23 117/78 91 07/30/16 08:35 07/30/16 15:34 07/30/16 15:34 07/30/16 15:34 07/30/16 15:34 - General physical appearance well developed, well nourished, no distress, moderate distress, moderate pain, chronically ill - Eyes PERRL, normal ocular movement - ENT normal pinna, normal nares, normal mucosa, no hearing loss, no congestion - Head Head exam IM: Present: atraumatic, normocephalic - Neck no masses, no bruits, trachea midline, no lymphadectomy, no venous distension - Cardiovascular Cardiovascular exam IM: Present: normal rate and rhythm, irregular rhythm, +S1, +S2, systolic murmur Intensity IM: 2/ - Respiratory clear to percussion (major deformity of chest with diminished breath sounds bilaterally especially at the bases; no wheezes; poor inspiratory and expiratory abilitydue to deformity), other - Abdomen Abdomen: Present: tender, bowel sounds, distended (diffusely distended and tender in the upper abdomen bilaterally epigastric guarding with mild rigidity) Hernia: Present: none - Integumentary Present: no rash, no growths, no abnormal pigmentation, other (bruising of the left upper extremity and right lower extremity from recent angioplasty of left carotid stenosis and subclavian stenosis) - Neurologic Present: normal coordination, normal sensation - Musculoskeletal Present: other (abnormal posture due to severe scoliosis) - Psychiatric Present: oriented to time, oriented to person, oriented to place, speech is normal, memory intact Assessment and Plan (1) Chronic respiratory failure with hypoxia and hypercapnia oxygen supplementation as needed Possible postoperative ventilatory support with BiPAP or ventilator Status: Acute (2) Perforated gastric ulcer patient counseled for exploratory laparotomy with Mk patch closure of perforated gastric ulcer Nasogastric decompression tonight rule out pulmonary status is stabilized Levaquin perioperative antibiotic coverage Status: Acute (3) COPD with acute exacerbation Status: Acute (4) Subclavian steal syndrome Status: Acute (5) Hypertension, essential Status: Chronic Comment: 1985
[2016-07-30] MEDS: PANTOPRAZOLE 40 MG VIAL IV SCH (17:44)
[2016-07-30] MEDS ORDERED: LEVOFLOXACIN 250 MG/50 ML BAG IV ONE (18:00)
[2016-07-30] MEDS: IPRATROPIUM/ALBUTEROL 3 ML AMPUL.NEB NEB SCH (20:25)
[2016-07-30] MEDS ORDERED: 0.9 % SODIUM CHLORIDE 10 ML SYRINGE IV SCH (22:00)
[2016-07-30] MEDS ORDERED: NOREPINEPHRINE BITARTRATE 4 MG/4 ML AMPUL IV ONE (22:17)
--- NOTE | 2016-07-30 22:22 | Internal Med Progress Note ---
Medical - Auxillary Note - Subjective Patient Information: Note initiated : 07/30/16 at 10:20 pm Service Date, if different from initiated Date: [] Patient: Alice Maradiaga 76 y/o F admitted on 07/30/16 for Abdominal Pain. Chief Complaint: [] Vital Signs Temp Pulse Resp BP Pulse Ox 98.4 F 98 H 26 H 94/60 92 07/30/16 19:49 07/30/16 20:55 07/30/16 20:55 07/30/16 19:49 07/30/16 20:55 Period Temp Pulse Resp BP Sys/Bess Pulse Ox Last 24 Hr 98.1 F-98.4 F 98-111 22-36 94-103/60-64 89-93 Intake and Output 07/30/16 07/30/16 07/31/16 13:59 21:59 05:59 Intake Total 1150 / 1150 Balance 1150 / 1150 Weight 144 lb 8 oz Patient Weight 07/31/16 05:59 Weight 144 lb 8 oz Medications Albuterol/Ipratropium (Duoneb) 3 ml NEB Q4HRT [facility] Last Admin: 07/30/16 20:25 Dose: 3 ml Hydromorphone HCl (Dilaudid) 0 mg IV Q4HP PRN PRN Reason: Pain Potassium Chloride 40 meq/ (Dextrose) 520 mls @ 130 mls/hr IV UD PRN PRN Reason: K+ = or < 3.5 Magnesium Sulfate (Magnesium Sulfate) 2 gm in 50 mls @ 50 mls/hr IV UD PRN PRN Reason: MG = or < 1.7 Sodium Chloride (Sodium Chloride 0.9%) 1,000 mls @ 50 mls/hr IV .Q20H [facility] Stop: 08/02/16 04:13 Last Admin: 07/30/16 17:15 Dose: 50 mls/hr Acetaminophen (Ofirmev) 1,000 mg in 100 mls @ 200 mls/hr IV Q6HP PRN PRN Reason: PAIN/FEVER > 101 Metronidazole (Flagyl) 500 mg in 100 mls @ 100 mls/hr IV Q6 [facility] Last Infusion: 07/30/16 20:29 Dose: Infused Levofloxacin (Levaquin) 750 mg in 150 mls @ 100 mls/hr IV Q48H [facility] Ondansetron HCl (Zofran) 4 mg IV Q4-6HP PRN PRN Reason: Nausea And Vomiting Pantoprazole Sodium (Protonix) 40 mg IV Q10H [facility] Last Admin: 07/30/16 17:44 Dose: 40 mg Sodium Chloride (Saline Flush) 10 ml IV Q8 [facility] Assessment * Septic shock- crystalloids and vasopressors * Perf bowel with peritonitis * Hypercapnic resp failure * Asp pNA Plan * ICU care * Biapap * abx * serial ABGS * pressors and crystalloids * Central line placement over 35 mion CC time
[2016-07-30] MEDS ORDERED: HEPARIN/NS 500 ML IV ONE (23:10)
[2016-07-30] MEDS ORDERED: MIDAZOLAM 2 MG/2 ML VIAL ONE (23:14)
[2016-07-30] MEDS ORDERED: 0.9 % SODIUM CHLORIDE 10 ML SYRINGE IV PRN (23:43)
[2016-07-30] MEDS ORDERED: MIDAZOLAM PF 50 MG in 0.9 % SODIUM CHLORIDE 90 ML IV SCH (23:45)
[2016-07-30] MEDS ORDERED: fentaNYL 2,500 MCG in 0.9 % SODIUM CHLORIDE 200 ML IV SCH (23:45)
[2016-07-30] MEDS ORDERED: HEPARIN/NS 500 ML IV SCH (23:45)
--- NOTE | 2016-07-31 01:37 | Brief Operative Note ---
Date of procedure: 07/31/16 Pre-op diagnosis: perforated gastric ulcer Post-op diagnosis: other (perforated gastric ulcer) Procedure: EXPLORATORY LAPAROTOMY WITH PAOLA PATCH CLOSURE OF PERFORATED ULCER Grafts/Implants: No (J P DRAIN X1) Anesthesia: GETA Findings: ANTERIOR PERFORATION OF DISTAL ANTRUM WITH BILIOUS AND GASTRIC JUICE Complications: none Surgeon: Melina Whipple Estimated blood loss (cc): 50 Specimens Removed/Pathology: none sent Condition: critical Disposition: ICU
[2016-07-31] MEDS: metroNIDAZOLE 500 MG/100 ML BAG IV SCH ×5 (02:00→23:55)
[2016-07-31] MEDS: 0.9 % SODIUM CHLORIDE 1,000 ML IV SCH ×5 (02:10→22:43)
[2016-07-31] MEDS ORDERED: fentaNYL 100 MCG/2 ML VIAL IV ONE ×2 (02:12)
[2016-07-31] MEDS: IPRATROPIUM/ALBUTEROL 3 ML AMPUL.NEB NEB SCH ×8 (03:37→23:33)
[2016-07-31] MEDS: PANTOPRAZOLE 40 MG VIAL IV SCH ×3 (03:40→23:53)
[2016-07-31] MEDS ORDERED: 0.9 % SODIUM CHLORIDE 10 ML SYRINGE IV PRN (03:44)
[2016-07-31] MEDS ORDERED: HYDROmorphone 2 MG/ML SYRINGE IV PRN (03:44)
[2016-07-31] MEDS ORDERED: HEPARIN/NS 500 ML IV SCH (03:44)
[2016-07-31] MEDS ORDERED: ONDANSETRON 4 MG/2 ML VIAL IV PRN (03:44)
[2016-07-31] MEDS ORDERED: 0.9 % SODIUM CHLORIDE 1,000 ML IV SCH (03:44)
[2016-07-31] MEDS ORDERED: POTASSIUM CHLORIDE 40 MEQ in DEXTROSE 5% IN WATER 500 ML IV PRN (03:44)
[2016-07-31] MEDS ORDERED: MAGNESIUM SULFATE 2 GM/50 ML BAG IV PRN (03:44)
--- NOTE | 2016-07-31 05:30 | XRay Report ---
CLINICAL INFORMATION: Central line placement COMPARISON: 07/07/2016 FINDINGS: Left-sided central line tip overlies the SVC right atrial junction. NG tube extends off the edge of the film - at least the mid gastric body. Mild cardiomegaly is unchanged. Mediastinum is unremarkable. Severe dextro scoliosis distorts and reduces the chest cavity size resulting in chronic restrictive lung disease.. Moderate sized consolidated infiltrate in the right mid and lower lung has developed. Small infiltrate or atelectasis left base is also new. Small right pleural effusion noted IMPRESSION: Moderate size region of consolidated infiltrate or atelectasis right mid LAD lower lung with small effusions. Smaller infiltrate or atelectasis left base - new. Lines and tubes in satisfactory position Interpreted and Authenticated by: Rm Moss 07/31/16
[2016-07-31 05:36] LABS: Mean Cell Volume 92.4 fL (80.0-100.0); Mean Corpuscular HGB Conc 31.4 g/dL (31.0-36.0); Platelet Count 381 K/mcL (140-440); RBC 3.37 M/mcL (4.00-5.20); Red Cell Distribution Width 15.9 % (11.5-14.5)
--- NOTE | 2016-07-31 05:36 | XRay Report ---
CLINICAL INFORMATION: NG placement COMPARISON: 07/30/2016 FINDINGS: NG tube was retracted slightly now overlying the proximal gastric body. The sidehole is at the gastric cardia. Stool gas pattern is unremarkable. The known free air from gastric ulcer rupture is not apparent on this supine abdomen. IMPRESSION: Slight retraction of NG tube tip now overlying the proximal gastric body. Interpreted and Authenticated by: Rm Moss 07/31/16
--- NOTE | 2016-07-31 05:40 | XRay Report ---
CLINICAL INFORMATION: Endotracheal tube placement COMPARISON: 07/30/2016 portable chest x-ray FINDINGS: Moderate cardiomegaly is unchanged. Mediastinum is unremarkable. Pulmonary vessels are normal. Endotracheal tube is been placed the tip is only five mm above the carlton. Central line and NG tube are in stable satisfactory position. Moderate airspace disease in the right mid/lower lung has modestly improved from previous study - this should represent atelectasis or infiltrate. There is now only minor atelectasis left base. Small right pleural effusion noted IMPRESSION: Moderate vague infiltrate or atelectasis right mid and lower lungs with small effusion - improving. Left basilar atelectasis almost cleared. Endotracheal tip is approximately 5 mm above the carlton. Nurses were instructed to withdraw the tube 3 cm. Interpreted and Authenticated by: Rm Moss 07/31/16
[2016-07-31] MEDS ORDERED: MIDAZOLAM 2 MG/2 ML VIAL ONE (05:42)
[2016-07-31] MEDS ORDERED: 0.9 % SODIUM CHLORIDE 10 ML SYRINGE IV SCH ×2 (06:00)
--- NOTE | 2016-07-31 06:32 | Consultation ---
DATE OF CONSULTATION: 07/30/2016 REQUESTING PHYSICIAN: Dr. Whipple REASON FOR CONSULTATION: Management of medical issues. History of underlying COPD/restrictive lung disease. HISTORY OF CHIEF COMPLAINT: Alice is a 76-year-old admitted by surgery today for gastric ulcer perforation/peritonitis after she came to the [facility] emergency room with significant abdominal pain that started early this morning. The patient, however, denies fever, headache, photophobia. She was administered Dilaudid for her pain which resulted in significant CANE FEEDER and respiratory depression subsequently requiring 4 doses of Narcan in the ER. The patient had a NG tube placed and was admitted on the medical floor by surgery. At time of examination, the patient is somnolent. We reviewed her blood gas showing 7.29/83/67 on 4 liters of oxygen. In light of significant hypercapnia and mental status change, the patient is being transferred to ICU for noninvasive ventilation while she awaits surgical intervention for perforated gastric ulcer. Patient is fairly confused, unable to provide a detailed history. No family members are present. Most of the history was obtained from review of medical records. PAST MEDICAL HISTORY: 1. Coronary artery disease. 2. Anxiety disorder. 3. History of COPD/restrictive lung disease. 4. Hyperlipidemia SURGICAL HISTORY: 1. History of cholecystectomy. 2. Appendectomy. 3. Hysterectomy/oophorectomy. FAMILY HISTORY: None relevant to presenting symptoms. SOCIAL HISTORY: The patient is retired. Quit smoking a while ago. No history of recreational substance use. [place]. CURRENT MEDICATIONS: Plavix 75 daily. Torsemide 20 twice daily. Propranolol 10. Gabapentin 400 mg 3 times a day. Beclomethasone inhaled 150 twice daily. Atorvastatin 20. DuoNeb every 6 hours. Budesonide inhaled twice daily. ALLERGIES: 1. CODEINE. 2. BEE STING. PHYSICAL EXAMINATION: GENERAL: The patient is alert; however, confused, nondistressed. BMI 30. Height 4 feet 4 inches. VITAL SIGNS: Blood pressure 103/__, respiratory rate 22, temperature 98.1, pulse 100, sats 89 percent on 4 liters of oxygen. HEENT: Pupils symmetric. Oral cavity dry. No ear or nose discharge. Head is normocephalic and atraumatic. NECK: No lymphadenopathy. HEART: S1, S2, tachycardia, regular rhythm. Ejection systolic murmur grade 1. Diminished breath sounds at bases. ABDOMEN: Tender along with rebound, minimal guarding, no fluid. LOWER EXTREMITIES: No cyanosis, no clubbing, no joint swelling. SKIN: No suspicious lesions. PSYCHIATRIC: Confused, but alert, hypervigilant, no agitation. NEUROLOGIC: Nonfocal. Moving all 4 extremities. Higher functions could not be checked. LABS AND IMAGING: White count 9.7, hemoglobin 10.7, platelets 390. Lactic acid 0.7. Sodium __, potassium 3.4, creatinine 0.7, BUN 9. LFTs unremarkable. UA unremarkable. 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 Moderate atelectasis/infiltrate bilateral posterior lower lobe, possibly aspiration. ASSESSMENT AND PLAN: 76-year-old with gastric perforation along with aspiration pneumonia. 1. Gastric perforation with peritonitis, managed by surgery. Hospitalist consult for management of medical issues. 2. Systemic inflammatory response syndrome secondary to acute peritonitis. Continue antibiotic coverage. 3. Hypercapnic respiratory failure with PCO2 over 80. Start patient on noninvasive ventilation, continue serial blood gas and imaging. 4. Aspiration pneumonia. Continue aspiration precautions, keep nothing by mouth, currently on nasogastric tube decompression. Continue antibiotic coverage for gram negative and anaerobes. 5. History of coronary artery disease. At this time, aspirin/Plavix will be held until patient is stable postoperatively and approved by surgery for oral intake. 6. Pain management will be on as-needed low-dose opioids. Overall, a high-complexity admit in this patient with aspiration pneumonia, hypoxic hypercapnic respiratory failure mandating ICU admission while she will be undergoing surgical intervention by Dr. Whipple for perforated gastric ulcer. Thank you for consult. AA: Job ID: [id number] Doc ID: [id number] Kevin BURKETT
[2016-07-31 06:44] LABS: Anisocytosis 1+ (NONE SEEN); Band Neutrophils % 67 % (0-10); Lymphocytes % 10 % (15-49); Metamyelocytes % 1 % (0-0); Monocytes % (Manual) 3 % (1-9); Platelet Estimate NORMAL (NORMAL); RBC Morphology ABNORM (NORMAL); Segmented Neutrophils % 19 % (38-78)
[2016-07-31] MEDS: 0.9 % SODIUM CHLORIDE 10 ML SYRINGE IV SCH ×3 (07:00→21:12)
[2016-07-31 07:09] LABS: ALT/SGPT 24 U/l (0-40); Albumin 2.4 gm/dL (3.2-5.2); Albumin/Globulin Ratio 1.5 (1.0-2.3); Alkaline Phosphatase 66 U/L (39-117); Bilirubin,Direct 0.3 mg/dL (0.0-0.3); Blood Urea Nitrogen 11 mg/dl (8-23); Gamma Glutamyl Transpeptidase 10 U/L (5-36); Magnesium 1.4 mg/dL (1.6-2.5); Phosphorous 1.9 mg/dL (2.7-4.5); Uric Acid 3.8 mg/dL (2.5-8.0)
[2016-07-31] MEDS: ACETAMINOPHEN 1,000 MG/100 ML BOTTLE IV SCH ×4 (07:42→23:54)
[2016-07-31] MEDS: fentaNYL 2,500 MCG in 0.9 % SODIUM CHLORIDE 200 ML IV SCH (07:51)
[2016-07-31] MEDS ORDERED: CHLORHEXIDINE GLUCONATE 1 ML ORAL.SOL SWABMOUTH SCH (09:00)
[2016-07-31] MEDS ORDERED: MAGNESIUM SULFATE 32.48 MEQ in DEXTROSE 5% IN WATER 50 ML IV ONE (09:00)
[2016-07-31] MEDS ORDERED: 0.9 % SODIUM CHLORIDE 500 ML IV ONE (09:10)
[2016-07-31] MEDS: POTASSIUM PHOSPHATE 40 MEQ in DEXTROSE 5% IN WATER 500 ML IV SCH ×2 (09:47→13:58)
[2016-07-31] MEDS: CHLORHEXIDINE GLUCONATE 1 ML ORAL.SOL SWABMOUTH SCH ×2 (09:50→21:01)
--- NOTE | 2016-07-31 09:55 | Internal Med Progress Note ---
Medical - PN: Subj Patient information: Note initiated : 07/31/16 at 9:52 am Service Date, if different from initiated Date: [] Patient: Alice Maradiaga 76 y/o F admitted on 07/30/16 for Abdominal Pain. Chief Complaint: [] Interval history: 07/30 patient admitted with perforated bowel peritonitis and septic shock. Admitted to ICU. Underwent operative intervention around midnight. Postoperative mechanical ventilation. On Levophed broad antibiotic coverage/ crystalloids. Close urinary output monitoring. Critically ill. [place] score 18 07/31- patient mechanical ventilation on Levophed/crystalloids with map at goal. Improving urine output from near anuria to 20-25 cc an hour. severe sepsis with bandemia 67%. low magnesium/phosphorus on IV replacement. Continue antibiotic coverage. Postop day 1. Postsurgical care as per surgery. FREDERIC output over 40 cc in 4 hours. Continue to wean the Levophed. Patient continues to be critically ill - Constitutional Vitals: Vital Signs Temp Pulse Resp BP Pulse Ox 100.0 F H 107 H 25 H 136/63 97 07/31/16 09:00 07/31/16 07:07 07/31/16 09:03 07/31/16 09:00 07/31/16 09:03 Period Temp Pulse Resp BP Sys/Bess Pulse Ox Last 24 Hr 97.8 F-100.4 F 78-111 16-95 78-153/42-96 89-99 Intake and Output 07/30/16 07/31/16 07/31/16 21:59 05:59 13:59 Intake Total 2150 / 2150 3560 / 3560 829 / 829 Output Total 440 / 440 100 / 100 Balance 2150 / 2150 3120 / 3120 729 / 729 Weight 144 lb 8 oz Intake & Output: Intake & Output 07/30/16 07/31/16 07/31/16 21:59 05:59 13:59 Intake Total 2150 / 2150 3560 / 3560 829 / 829 Output Total 440 / 440 100 / 100 Balance 2150 / 2150 3120 / 3120 729 / 729 Weight 144 lb 8 oz Intake: IV 2150 / 2150 3560 / 3560 829 / 829 Sodium Chloride 0.9% 1999 3460 / 3460 129 / 129 000 ml @ 50 mls/hr IV . Q20H [facility] Rx#:[id number] Sodium Chloride 0.9% 500 500 / 500 ml @ Wide Open IV BOLUS ONE Rx#:[id number] Output: Gastric Drainage 150 / 150 NG/OG 150 / 150 Drainage 90 / 90 40 / 40 Right FREDERIC Drain 90 / 90 40 / 40 Urine Catheter Amount 200 / 200 60 / 60 Other: # Bowel Movements 0 General appearance: cooperative, no acute distress Exam: on mechanical ventilation Alert and responding to verbal commands Tachycardia improved Foleys draining clear urine ET tube in place nondistended abdomen FREDERIC drain 40 cc Medical - PN: Obj Da - Labs CBC & Chem 7: 07/31/16 04:09 07/31/16 04:09 Labs: Abnormal Lab Results 07/31/16 07/31/16 04:09 04:09 RBC 3.37 L Hgb 9.8 L Hct 31.1 L RDW 15.9 H Seg Neutrophils % 19 L Band Neutrophils % 67 H Lymphocytes % 10 L Metamyelocytes % 1 H RBC Morphology Abnorm A Anisocytosis 1+ A Chloride 110 H Calcium 7.6 L Phosphorus 1.9 L Magnesium 1.4 L AST 41 H Total Protein 4.0 L Albumin 2.4 L Globulin 1.6 L Meds: Medications Albuterol/Ipratropium (Duoneb) 3 ml NEB Q4HRT [facility] Last Admin: 07/31/16 07:04 Dose: 3 ml Chlorhexidine Gluconate (Peridex) 15 ml SWABMOUTH BID [facility] Last Admin: 07/31/16 09:50 Dose: 15 ml Hydromorphone HCl (Dilaudid) 0 mg IV Q4HP PRN PRN Reason: Pain Potassium Chloride 40 meq/ (Dextrose) 520 mls @ 130 mls/hr IV UD PRN PRN Reason: K+ = or < 3.5 Magnesium Sulfate (Magnesium Sulfate) 2 gm in 50 mls @ 50 mls/hr IV UD PRN PRN Reason: MG = or < 1.7 Acetaminophen (Ofirmev) 1,000 mg in 100 mls @ 200 mls/hr IV Q6 [facility] Last Infusion: 07/31/16 08:15 Dose: Infused Metronidazole (Flagyl) 500 mg in 100 mls @ 100 mls/hr IV Q6 [facility] Last Infusion: 07/31/16 08:40 Dose: Infused Levofloxacin (Levaquin) 750 mg in 150 mls @ 100 mls/hr IV Q48H [facility] Heparin Sodium/Sodium Chloride (Heparin/Ns) 500 mls @ 0 mls/hr IV .Q0M [facility]; KVO PRN Reason: Protocol Midazolam HCl 50 mg/ Sodium (Chloride) 100 mls @ 2.62 mls/hr IV Q24HP PRN; Protocol; 0.02 MG/KG/HR PRN Reason: TITRATE FOR SEDATION Fentanyl 2,500 mcg/ Sodium (Chloride) 250 mls @ 2.5 mls/hr IV Q24H [facility]; 25 MCG/ HR PRN Reason: Protocol Last Admin: 07/31/16 07:51 Dose: 100 mcg/hr, 10 mls/hr Potassium Phosphate 40 meq/ (Dextrose) 509.0909 mls @ 127.273 mls/hr IV Q4H [facility] Stop: 07/31/16 16:59 Last Admin: 07/31/16 09:47 Dose: 127.273 mls/hr Magnesium Sulfate 32.48 meq/ (Dextrose) 58 mls @ 58 mls/hr IV ONCE ONE Stop: 07/31/16 09:59 Last Admin: 07/31/16 09:41 Dose: 58 mls/hr Sodium Chloride (Sodium Chloride 0.9%) 1,000 mls @ 200 mls/hr IV .Q5H [facility] Last Admin: 07/31/16 09:50 Dose: 200 mls/hr Ondansetron HCl (Zofran) 4 mg IV Q4-6HP PRN PRN Reason: Nausea And Vomiting Pantoprazole Sodium (Protonix) 40 mg IV Q10H [facility] Sodium Chloride (Saline Flush) 10 ml IV Q8 [facility] Last Admin: 07/31/16 07:00 Dose: 10 ml Sodium Chloride (Saline Flush) 10 ml IV UD PRN PRN Reason: lab draws/meds Medical - PN: A/P - Time Spent With Patient Total time spent is greater than 50% in coordination of care (as documented) at patient's floor/unit and/or counseling patient: Greater than 35 minutes (critical care time) (1) Septic shock Status: Acute Assessment and plan: * bowel perforation with acute peritonitis-status post operative repair. Postop care per Dr. Whipple surgery Issues managed by hospitalist service * Acute peritonitis secondary to bowel perforation- continue broad antibiotic coverage to cover anaerobes/gram negatives. Including antifungal coverage in light of peritoneal contamination and high risk fungal infection. * septic shock-continue pressors/crystalloids and management per guidelines * hypoxic hypercapnic respiratory failure on mechanical ventilation. Continue per protocol * aspiration pneumonia-on mechanical ventilation for airway protection Plan * ICU care * Mechanical ventilation per protocol,serial chest imaging/blood gas in ICU sedation * vasopressors/crystalloids * Patient critically ill-[place] score over 20. High-risk mortality Current Visit: Yes Medical - PN: Qual - VTE Deep Vein Thrombosis/Pulmonary Embolism Present on Admission: No
--- NOTE | 2016-07-31 10:15 | Procedure Note ---
Procedures - Central Line Placement Left IJ Consent obtained: verbal consent Time out performed: Yes Patient placed on monitor/pulse ox: Yes MD prep: mask, sterile gown, sterile gloves, cap Central line prep: 2% Chlorhexidine scrub Local anesthesia used: lidocaine 1% Amount of anesthesia used (mls): 2 Ultrasound used for placement: Yes Central line lumen inserted: quad, 20 cm Post procedure: sutured in place, good blood return, all ports aspirated, flushed, capped, sterile dressing applied Post procedure x-ray: tip of catheter in good position, no pneumothorax seen Patient tolerated procedure: well, no complications Complications: none
[2016-07-31] MEDS: FLUCONAZOLE 400 MG/200 ML BAG IV SCH (10:18)
[2016-07-31] MEDS: 0.9 % SODIUM CHLORIDE 250 ML IV SCH (10:18)
[2016-07-31] MEDS: NOREPINEPHRINE BITARTRATE 16 MG in 0.9 % SODIUM CHLORIDE 234 ML IV SCH (10:28)
--- NOTE | 2016-07-31 11:44 | General Surgery Progress Note ---
Subjective Patient reports: other (PATIENT IS RELATED AND IS STABLE THOUGH SHE DOES REQUIRE LEVOPHED.. hER URINE OUTPUT IS INCREASING WITH THE INCREASE IN iv INFUSION OF SALINE. hER BLOOD PRESSURE IS STABLE. hER o2 SATS HAVE BEEN GREATER THAN 90% AND HER fIo2 IS BEING SLOWLY DECREASE. sHE IS BRIGHT AND ALERT AND RESPONDS TO QUESTIONS APPROPRIATELY. sHE HAS A GENERAL APPEARANCE OF GOOD PERFUSION AND IS STABILIZING HOURLY.) Narrative: Note initiated : 07/31/16 at 11:42 am Service Date, if different from initiated Date: [] Patient: Alice Maradiaga 76 y/o F admitted on 07/30/16 for Abdominal Pain. Chief Complaint: [] Objective Temp Pulse Resp BP Pulse Ox 100.0 F H 97 H 22 122/59 96 07/31/16 10:00 07/31/16 10:52 07/31/16 10:52 07/31/16 10:00 07/31/16 10:48 - Additional Data Intake & Output - Last 24 hours: Intake & Output 07/29/16 07/30/16 07/31/16 08/01/16 05:59 05:59 05:59 05:59 Intake Total 5710 / 5710 891 / 891 Output Total 440 / 440 125 / 125 Balance 5270 / 5270 766 / 766 Weight 144 lb 8 oz - Additional Exam PATIENT IS ON VENTILATORY SUPPORT BUT IS ALERT AND AWARE AND COOPERATE IN HER CARE heent IS UNREMARKABLE nECK IS SUPPLE THERE IS NO jvd cHEST DECREASED BREATH SOUNDS THROUGHOUT DUE TO HER RESTRICTIVE LUNG DISEASE. nO WHEEZES hEART REGULAR RHYTHM WITH TACHYCARDIA AND 110-120 RANGE aBDOMEN DISTENDED WITH HYPOACTIVE BOWEL SOUNDS; INCISION LOOKS GOOD eXTREMITIES NO PERIPHERAL EDEMA YET nEUROLOGIC EXAM RESPONDS APPROPRIATELY; MENTATION IS GOOD; MOVES ALL EXTREMITIES - Labs 07/31/16 04:09 07/31/16 04:09 Diabetes panel 07/31/16 Range/Units 04:09 Sodium 145 (133-145) mmol/L Potassium 3.7 (3.3-5.1) mmol/L Chloride 110 H (96-108) mmol/L Carbon Dioxide 27 (22-30) mmol/L BUN 11 (8-23) mg/dl Creatinine 0.6 (0.6-1.1) mg/dl Glucose 97 (70-105) mg/dL Calcium 7.6 L (8.6-10.4) mg/dl AST 41 H (0-37) U/l ALT 24 (0-40) U/l Alkaline Phosphatase 66 (39-117) U/L Total Protein 4.0 L (5.9-8.4) gm/dL Albumin 2.4 L (3.2-5.2) gm/dL Triglycerides 50 (<150) mg/dl Calcium panel 07/31/16 Range/Units 04:09 Calcium 7.6 L (8.6-10.4) mg/dl Phosphorus 1.9 L (2.7-4.5) mg/dL Albumin 2.4 L (3.2-5.2) gm/dL Pituitary panel 07/31/16 Range/Units 04:09 Sodium 145 (133-145) mmol/L Potassium 3.7 (3.3-5.1) mmol/L Chloride 110 H (96-108) mmol/L Carbon Dioxide 27 (22-30) mmol/L BUN 11 (8-23) mg/dl Creatinine 0.6 (0.6-1.1) mg/dl Glucose 97 (70-105) mg/dL Calcium 7.6 L (8.6-10.4) mg/dl Adrenal panel 07/31/16 Range/Units 04:09 Sodium 145 (133-145) mmol/L Potassium 3.7 (3.3-5.1) mmol/L Chloride 110 H (96-108) mmol/L Carbon Dioxide 27 (22-30) mmol/L BUN 11 (8-23) mg/dl Creatinine 0.6 (0.6-1.1) mg/dl Glucose 97 (70-105) mg/dL Calcium 7.6 L (8.6-10.4) mg/dl Total Bilirubin 0.4 (0.0-1.0) mg/dL AST 41 H (0-37) U/l ALT 24 (0-40) U/l Alkaline Phosphatase 66 (39-117) U/L Total Protein 4.0 L (5.9-8.4) gm/dL Albumin 2.4 L (3.2-5.2) gm/dL Medical - PN: A/P - Time Spent With Patient Total time spent is greater than 50% in coordination of care (as documented) at patient's floor/unit and/or counseling patient: (1) Chronic respiratory failure with hypoxia and hypercapnia Status: Acute Assessment and plan: SSTABLE ON VENTILATORY SUPPORT Current Visit: Yes (2) Perforated gastric ulcer Status: Acute Assessment and plan: RECOVERING UNEVENTFULLY FROM LAPAROTOMY WITH EXPECTED RESPONSE Current Visit: Yes (3) COPD with acute exacerbation Status: Acute Current Visit: No (4) Subclavian steal syndrome Status: Acute Current Visit: No (5) Hypertension, essential Problem details: 1986 Status: Chronic Current Visit: No
--- NOTE | 2016-07-31 15:35 | XRay Report ---
CLINICAL INFORMATION: On mechanical ventilation. Follow-up infiltrates COMPARISON: 07/30/2016 2345 hours FINDINGS: Endotracheal tip position is 2 cm above the carlton. NG tube tip extends to the gastric body. Left IJ central line in stable satisfactory position Mild cardiomegaly is stable. Mediastinum is normal. Patchy infiltrate or atelectasis right base has improved. There is minor atelectasis in the left base also improving. Small right pleural effusion noted IMPRESSION: Patchy atelectasis or infiltrate right base and small effusion improving. Minor left basilar atelectasis also improving Endotracheal tip is now 2 cm above the carlton Interpreted and Authenticated by: Rm Moss 07/31/16
[2016-07-31] MEDS ORDERED: MIDAZOLAM PF 50 MG in 0.9 % SODIUM CHLORIDE 90 ML IV PRN (23:45)
[2016-08-01] MEDS: IPRATROPIUM/ALBUTEROL 3 ML AMPUL.NEB NEB SCH ×6 (03:10→23:52)
[2016-08-01] MEDS: ACETAMINOPHEN 1,000 MG/100 ML BOTTLE IV SCH ×4 (05:28→23:29)
[2016-08-01] MEDS: metroNIDAZOLE 500 MG/100 ML BAG IV SCH ×4 (05:29→23:29)
[2016-08-01] MEDS: 0.9 % SODIUM CHLORIDE 10 ML SYRINGE IV SCH ×3 (05:30→19:18)
[2016-08-01 05:44] LABS: Mean Cell Volume 92.1 fL (80.0-100.0); Mean Corpuscular HGB Conc 31.3 g/dL (31.0-36.0); Mean Corpuscular Hemoglobin 28.9 pg (26.0-34.0); Platelet Count 427 K/mcL (140-440); RBC 3.01 M/mcL (4.00-5.20); Red Cell Distribution Width 16.6 % (11.5-14.5)
[2016-08-01 06:40] LABS: ALT/SGPT 18 U/l (0-40); Albumin 2.1 gm/dL (3.2-5.2); Albumin/Globulin Ratio 1.3 (1.0-2.3); Alkaline Phosphatase 79 U/L (39-117); Bilirubin,Direct < 0.2 mg/dL (0.0-0.3); Blood Urea Nitrogen 9 mg/dl (8-23); Gamma Glutamyl Transpeptidase 9 U/L (5-36); Magnesium 2.2 mg/dL (1.6-2.5); Phosphorous 4.1 mg/dL (2.7-4.5); Uric Acid 2.7 mg/dL (2.5-8.0)
--- NOTE | 2016-08-01 06:58 | XRay Report ---
CLINICAL INFORMATION: Follow infiltrates on mechanical ventilation COMPARISON: 07/31/2016 FINDINGS: Lines and tubes are in stable satisfactory position. Moderate cardiomegaly is stable. Mediastinum is unremarkable. Mild patchy infiltrate or atelectasis in the right mid and low both lung bases has progressed slightly from previous study. No effusions IMPRESSION: Mild patchy residual infiltrate or atelectasis in the right mid and both lung bases - progressing slightly from yesterday Interpreted and Authenticated by: Rm Moss 08/01/16
[2016-08-01] MEDS: 0.9 % SODIUM CHLORIDE 1,000 ML IV SCH ×6 (07:49→15:45)
[2016-08-01 08:45] LABS: Anisocytosis 1+ (NONE SEEN); Band Neutrophils % 13 % (0-10); Lymphocytes % 9 % (15-49); Monocytes % (Manual) 5 % (1-9); Platelet Estimate NORMAL (NORMAL); RBC Morphology ABNORM (NORMAL); Segmented Neutrophils % 73 % (38-78)
[2016-08-01] MEDS: fentaNYL 2,500 MCG in 0.9 % SODIUM CHLORIDE 200 ML IV SCH (08:52)
[2016-08-01] MEDS: 0.9 % SODIUM CHLORIDE 250 ML IV SCH ×3 (08:55→12:49)
[2016-08-01] MEDS ORDERED: LEVOFLOXACIN 750 MG/150 ML BAG IV SCH ×2 (09:00)
[2016-08-01] MEDS: PANTOPRAZOLE 40 MG VIAL IV SCH ×2 (09:18→18:56)
[2016-08-01] MEDS: CHLORHEXIDINE GLUCONATE 1 ML ORAL.SOL SWABMOUTH SCH ×2 (09:20→21:05)
[2016-08-01] MEDS ORDERED: FUROSEMIDE 40 MG/4 ML VIAL IV ONE (09:52)
[2016-08-01] MEDS ORDERED: POTASSIUM CHLORIDE 40 MEQ in DEXTROSE 5% IN WATER 250 ML IV ONE (09:53)
--- NOTE | 2016-08-01 10:26 | Internal Med Progress Note ---
Medical - PN: Subj Patient information: Note initiated : 08/01/16 at 10:23 am Service Date, if different from initiated Date: [] Patient: Alice Maradiaga 76 y/o F admitted on 07/30/16 for Abdominal Pain. Chief Complaint: [] Interval history: 07/30 patient admitted with perforated bowel peritonitis and septic shock. Admitted to ICU. Underwent operative intervention around midnight. Postoperative mechanical ventilation. On Levophed broad antibiotic coverage/ crystalloids. Close urinary output monitoring. Critically ill. [place] score 18 07/31- patient mechanical ventilation on Levophed/crystalloids with map at goal. Improving urine output from near anuria to 20-25 cc an hour. severe sepsis with bandemia 67%. low magnesium/phosphorus on IV replacement. Continue antibiotic coverage. Postop day 1. Postsurgical care as per surgery. AMBAR output over 40 cc in 4 hours. Continue to wean the Levophed. Patient continues to be critically ill 08/01- patient doing well on mechanical ventilation. generalized edema. Over 8000 cc positive. Start aggressive diuresis to improve static lung compliance. Continue pressors to keep map at goal. On Versed/fentanyl for ICU sedation. Peak pressure 31 plateau pr 28. No overnight events. No concerns per staff. DC IV fluids. Change potassium infusion from 500->100 cc bag delivering 40 mEq. strict I's and O's Along with daily weights. patient remains critically ill. Extensive AMBAR/NG output. surgery on board. blood gas improved from 7.51/28- 7.33/44. interval chest imaging progressive chest infiltrates - Constitutional Vitals: Vital Signs Temp Pulse Resp BP Pulse Ox 97.5 F L 88 16 120/59 97 08/01/16 07:00 08/01/16 07:37 08/01/16 09:20 08/01/16 07:00 08/01/16 09:20 Period Temp Pulse Resp BP Sys/Bess Pulse Ox Last 24 Hr 97.5 F-100.0 F 86-100 16-32 86-136/50-66 94-100 Intake and Output 07/31/16 08/01/16 08/01/16 21:59 05:59 13:59 Intake Total 2275.0909 / 2275.0909 279 / 279 1604 / 1604 Output Total 755 / 755 720 / 720 120 / 120 Balance 1520.0909 / 1520.0909 -441 / -441 1484 / 1484 Weight 159 lb 9.6 oz Intake & Output: Intake & Output 07/31/16 08/01/16 08/01/16 21:59 05:59 13:59 Intake Total 2275.0909 / 2275.0909 279 / 279 1604 / 1604 Output Total 755 / 755 720 / 720 120 / 120 Balance 1520.0909 / 1520.0909 -441 / -441 1484 / 1484 Weight 159 lb 9.6 oz Intake: IV 2275.0909 / 2275.0909 279 / 279 1604 / 1604 Sodium Chloride 0.9% 1, 1417 / 1417 1000 / 1000 000 ml @ 200 mls/hr IV . Q5H [facility] Rx#:[id number] Sodium Chloride 0.9% 250 214 / 214 ml @ 20 mls/hr IV . [id number] [facility] Rx#:[id number] Versed 50 mg In Sodium 1 / 1 41 / 41 Chloride 0.9% 90 ml @ 0. 02 MG/KG/HR 2.62 mls/hr IV Q24HP [facility]N Rx#: [id number] Levophed 16 mg In Sodium 95 / 95 38 / 38 Chloride 0.9% 234 ml @ 10 MCG/MIN 9.37 mls/hr IV Q24H [facility] Rx#:[id number] Dextrose 5% in Water 500 130 / 130 ml @ 130 mls/hr IV UD PRN with Potassium Chloride 40 Meq Rx#:[id number] Dextrose 5% in Water 574 490.8567 / 509.0909 ml @ 127.273 mls/hr IV Q4H [facility] with Potassium Phosphate 40 Meq Rx#: [id number] fentaNYL 2,500 MCG In 53 / 53 160 / 160 Sodium Chloride 0.9% 200 ml @ 25 MCG/HR 2.5 mls/hr IV Q24H [facility] Rx#: [id number] Output: Gastric Drainage 0 / 0 50 / 50 NG/OG 0 / 0 50 / 50 Drainage 350 / 350 250 / 250 Right AMBAR Drain 350 / 350 250 / 250 Urine Catheter Amount 405 / 405 420 / 420 120 / 120 General appearance: no acute distress Exam: sedated on mechanical ventilation foleys draining clear urine A line/central line tachycardic 110 on telemetry Distended abdomen Ambar output Medical - PN: Obj Da - Labs CBC & Chem 7: 08/01/16 04:46 08/01/16 04:46 Labs: Abnormal Lab Results 08/01/16 08/01/16 07/31/16 04:46 04:46 04:09 WBC 13.6 H RBC 3.01 L Hgb 8.7 L Hct 27.8 L RDW 16.6 H Seg Neutrophils % Band Neutrophils % 13 H Lymphocytes % 9 L Metamyelocytes % RBC Morphology Abnorm A Anisocytosis 1+ A Chloride 110 H 110 H Carbon Dioxide 21 L Glucose 115 H Calcium 7.1 L 7.6 L Phosphorus 1.9 L Magnesium 1.4 L AST 41 H Total Protein 3.7 L 4.0 L Albumin 2.1 L 2.4 L Globulin 1.6 L 1.6 L 07/31/16 04:09 WBC RBC 3.37 L Hgb 9.8 L Hct 31.1 L RDW 15.9 H Seg Neutrophils % 19 L Band Neutrophils % 67 H Lymphocytes % 10 L Metamyelocytes % 1 H RBC Morphology Abnorm A Anisocytosis 1+ A Chloride Carbon Dioxide Glucose Calcium Phosphorus Magnesium AST Total Protein Albumin Globulin Meds: Medications Albuterol/Ipratropium (Duoneb) 3 ml NEB Q4HRT [facility] Last Admin: 08/01/16 07:24 Dose: 3 ml Chlorhexidine Gluconate (Peridex) 15 ml SWABMOUTH BID [facility] Last Admin: 08/01/16 09:20 Dose: 15 ml Furosemide (Lasix) 20 mg IV Q8 [facility] Hydromorphone HCl (Dilaudid) 0 mg IV Q4HP PRN PRN Reason: Pain Potassium Chloride 40 meq/ (Dextrose) 520 mls @ 130 mls/hr IV UD PRN PRN Reason: K+ = or < 3.5 Last Infusion: 08/01/16 09:54 Dose: 0 mls/hr Magnesium Sulfate (Magnesium Sulfate) 2 gm in 50 mls @ 50 mls/hr IV UD PRN PRN Reason: MG = or < 1.7 Acetaminophen (Ofirmev) 1,000 mg in 100 mls @ 200 mls/hr IV Q6 [facility] Last Infusion: 08/01/16 06:55 Dose: Infused Metronidazole (Flagyl) 500 mg in 100 mls @ 100 mls/hr IV Q6 [facility] Last Admin: 08/01/16 05:29 Dose: 100 mls/hr Levofloxacin (Levaquin) 750 mg in 150 mls @ 100 mls/hr IV Q48H [facility] Last Admin: 08/01/16 08:52 Dose: 100 mls/hr Heparin Sodium/Sodium Chloride (Heparin/Ns) 500 mls @ 0 mls/hr IV .Q0M [facility]; KVO PRN Reason: Protocol Fentanyl 2,500 mcg/ Sodium (Chloride) 250 mls @ 2.5 mls/hr IV Q24H [facility]; 25 MCG/ HR PRN Reason: Protocol Last Admin: 08/01/16 08:52 Dose: 500 mcg/hr, 50 mls/hr Sodium Chloride (Sodium Chloride 0.9%) 1,000 mls @ 200 mls/hr IV .Q5H [facility] Last Admin: 08/01/16 10:18 Dose: Not Given Fluconazole (Diflucan) 400 mg in 200 mls @ 100 mls/hr IV DAILY@1000 [facility] Stop: 08/02/16 11:59 Last Infusion: 07/31/16 12:30 Dose: Infused Norepinephrine Bitartrate 16 (mg/ Sodium Chloride) 250 mls @ 9.37 mls/hr IV Q24H [facility]; 10 MCG/MIN PRN Reason: Protocol Last Titration: 08/01/16 01:41 Dose: 10 mcg/min, 9.37 mls/hr Sodium Chloride (Sodium Chloride 0.9%) 250 mls @ 20 mls/hr IV .[id number] [facility] Last Admin: 08/01/16 10:09 Dose: 12.5 mls/hr Midazolam HCl 50 mg/ Sodium (Chloride) 100 mls @ 2.62 mls/hr IV Q12H [facility]; 0.02 MG/KG/HR PRN Reason: Protocol Potassium Chloride 40 meq/ (Dextrose) 270 mls @ 67.5 mls/hr IV ONCE ONE Stop: 08/01/16 13:52 Last Admin: 08/01/16 10:12 Dose: 67.5 mls/hr Potassium Chloride 40 meq/ (Dextrose) 120 mls @ 130 mls/hr IV UD PRN PRN Reason: K+ = or < 3.5 Ondansetron HCl (Zofran) 4 mg IV Q4-6HP PRN PRN Reason: Nausea And Vomiting Pantoprazole Sodium (Protonix) 40 mg IV Q10H [facility] Last Admin: 08/01/16 09:18 Dose: 40 mg Sodium Chloride (Saline Flush) 10 ml IV Q8 [facility] Last Admin: 08/01/16 05:30 Dose: 10 ml Sodium Chloride (Saline Flush) 10 ml IV UD PRN PRN Reason: lab draws/meds Medical - PN: A/P - Time Spent With Patient Total time spent is greater than 50% in coordination of care (as documented) at patient's floor/unit and/or counseling patient: Greater than 35 minutes (critical care time) (1) Septic shock Status: Acute Assessment and plan: * gastric perforation with acute peritonitis-status post operative repair. Postop care per Dr. Whipple surgery Issues managed by hospitalist service * Acute peritonitis secondary to bowel perforation- on broad antibiotic antifungal coverage to cover anaerobes/gram negatives. white count 13.6 with 13 % bands * Septic shock-continue pressors. DC crystalloids as adequate resuscitation achieved. Start diuresis to improve static compliance * hypoxic respiratory failure -continue mechanical ventilation per protocol * Aspiration pneumonia/A L I-on mechanical ventilation for airway protection Plan * patient critically ill [place] score over 20 * Mechanical ventilation per protoco * vasopressors * DC crystalloids * continue Electrolyte replacement as indicated using minimal infusion fluid Current Visit: Yes Medical - PN: Qual - VTE Deep Vein Thrombosis/Pulmonary Embolism Present on Admission: No
[2016-08-01] MEDS ORDERED: TPN PER PHARMACY PO ONE (10:46)
--- NOTE | 2016-08-01 11:05 | General Surgery Progress Note ---
Subjective Patient reports: no flatus, no bowel movement Narrative: Note initiated : 08/01/16 at 11:01 am Service Date, if different from initiated Date: [] Patient: Alice Maradiaga 76 y/o F admitted on 07/30/16 for Abdominal Pain. Chief Complaint: [patient has been relatively stable. She is acting clinically volume depleted and that her pressors cannot be decreased. She does have adequate urinary outpu. She is putting out 600 cc per day of peritoneal fluid which is third space fluid. She is afebrile and does not have leukocytosis which is worrisome because of her severe peritoneal inflammation. Discussed her situation with her daughter to let her know that overall she is stable and is gradually improving. Discussed with Dr. Burrell the need to withhold Lasix until her third space loss has improved. This usually takes 72-96 hours In the meantime will give albumin every 6 hours since she has significant hypoalbuminemia. This should retard her third space loss some and hopefully we will be able to reduce her pressors. She is oxygenating well but her SaO2 will have to decrease some before she is started on weaning because of her long-term restrictive and obstructive lung disease..] Objective Temp Pulse Resp BP Pulse Ox 97.5 F L 88 16 120/59 97 08/01/16 07:00 08/01/16 07:37 08/01/16 09:20 08/01/16 07:00 08/01/16 09:20 - Additional Data Intake & Output - Last 24 hours: Intake & Output 07/30/16 07/31/16 08/01/16 08/02/16 05:59 05:59 05:59 05:59 Intake Total 5710 / 5710 4974.1818 / 4974.1818 1604 / 1604 Output Total 440 / 440 1810 / 1810 120 / 120 Balance 5270 / 5270 3164.1818 / 3164.1818 1484 / 1484 Weight 144 lb 8 oz 159 lb 9.6 oz - Additional Exam patient is sedated and on the ventilator. She has diffuse anasarca due to hypoalbuminemia and capillary leak. HEENT is unremarkable except for swelling Neck supple I cannot determineJVD Chest there are breath sounds in the upper lobes with decreased breath sounds in the lower lobes but this is altered because of her thoracic deformity Heart resting tachycardia with frequent atrial and ventricular ectopic beats; blood pressure is stable Abdomen incision looks good FREDERIC drain has primarily serous drainage without bilious or bloody drainage; moderate abdominal distention with no active bowel sounds Extremities unchanged except for increasing edema Neurologic exam not tested due to sedation - Labs 08/01/16 04:46 08/01/16 04:46 Diabetes panel 08/01/16 Range/Units 04:46 Sodium 143 (133-145) mmol/L Potassium 3.5 (3.3-5.1) mmol/L Chloride 110 H (96-108) mmol/L Carbon Dioxide 21 L (22-30) mmol/L BUN 9 (8-23) mg/dl Creatinine 0.6 (0.6-1.1) mg/dl Glucose 115 H (70-105) mg/dL Calcium 7.1 L (8.6-10.4) mg/dl AST 25 (0-37) U/l ALT 18 (0-40) U/l Alkaline Phosphatase 79 (39-117) U/L Total Protein 3.7 L (5.9-8.4) gm/dL Albumin 2.1 L (3.2-5.2) gm/dL Triglycerides 60 (<150) mg/dl Calcium panel 08/01/16 Range/Units 04:46 Calcium 7.1 L (8.6-10.4) mg/dl Phosphorus 4.1 (2.7-4.5) mg/dL Albumin 2.1 L (3.2-5.2) gm/dL Pituitary panel 08/01/16 Range/Units 04:46 Sodium 143 (133-145) mmol/L Potassium 3.5 (3.3-5.1) mmol/L Chloride 110 H (96-108) mmol/L Carbon Dioxide 21 L (22-30) mmol/L BUN 9 (8-23) mg/dl Creatinine 0.6 (0.6-1.1) mg/dl Glucose 115 H (70-105) mg/dL Calcium 7.1 L (8.6-10.4) mg/dl Adrenal panel 08/01/16 Range/Units 04:46 Sodium 143 (133-145) mmol/L Potassium 3.5 (3.3-5.1) mmol/L Chloride 110 H (96-108) mmol/L Carbon Dioxide 21 L (22-30) mmol/L BUN 9 (8-23) mg/dl Creatinine 0.6 (0.6-1.1) mg/dl Glucose 115 H (70-105) mg/dL Calcium 7.1 L (8.6-10.4) mg/dl Total Bilirubin 0.3 (0.0-1.0) mg/dL AST 25 (0-37) U/l ALT 18 (0-40) U/l Alkaline Phosphatase 79 (39-117) U/L Total Protein 3.7 L (5.9-8.4) gm/dL Albumin 2.1 L (3.2-5.2) gm/dL - Imaging Chest x-ray: report reviewed, image reviewed Medical - PN: A/P - Time Spent With Patient Total time spent is greater than 50% in coordination of care (as documented) at patient's floor/unit and/or counseling patient: (1) Chronic respiratory failure with hypoxia and hypercapnia Status: Acute Assessment and plan: STABLE ON VENTILATORY SUPPORT Current Visit: Yes (2) Perforated gastric ulcer Status: Acute Assessment and plan: RECOVERING UNEVENTFULLY FROM LAPAROTOMY WITH EXPECTED RESPONSE ;anticipated ADYNAMIC ILEUS WITH THIRD SPACE FLUID LOSS Current Visit: Yes (3) COPD with acute exacerbation Status: Acute Current Visit: No (4) Subclavian steal syndrome Status: Acute Current Visit: No (5) Hypertension, essential Problem details: 1986 Status: Chronic Current Visit: No
[2016-08-01] MEDS ORDERED: POTASSIUM CHLORIDE 40 MEQ/100 ML BAG IV PRN (11:15)
[2016-08-01] MEDS: VASOPRESSIN 20 UNIT in DEXTROSE 5% IN WATER 99 ML IV SCH ×2 (12:43→19:58)
[2016-08-01] MEDS: METOCLOPRAMIDE 10 MG/2 ML VIAL IV SCH ×3 (13:14→23:30)
[2016-08-01] MEDS: FLUCONAZOLE 400 MG/200 ML BAG IV SCH (13:56)
[2016-08-01] MEDS ORDERED: FUROSEMIDE 20 MG/2 ML VIAL IV SCH (14:00)
[2016-08-01] MEDS: MIDAZOLAM PF 50 MG in 0.9 % SODIUM CHLORIDE 90 ML IV SCH (14:35)
[2016-08-01] MEDS: NOREPINEPHRINE BITARTRATE 16 MG in 0.9 % SODIUM CHLORIDE 234 ML IV SCH ×2 (14:41→19:50)
[2016-08-01] MEDS: ALBUMIN HUMAN 25 GM/100 ML BAG IV SCH ×3 (14:42→23:30)
[2016-08-01] MEDS ORDERED: MAGNESIUM SULFATE IV SCH (15:00)
[2016-08-01] MEDS ORDERED: CALCIUM GLUCONATE IV SCH (15:00)
[2016-08-01] MEDS ORDERED: MVI IV SCH (15:00)
[2016-08-01] MEDS ORDERED: POTASSIUM PHOSPHATE IV SCH (15:00)
[2016-08-01] MEDS ORDERED: [UNRECOGNIZED DRUG - OTHER] IV SCH (15:00)
[2016-08-01] MEDS: INSULIN LISPRO 1 UNIT/0.01 ML UNIT SQ SCH ×2 (15:43→18:01)
[2016-08-01] MEDS ORDERED: FAT EMULSION 20% 250 ML in PREMIX 1 BAG IV SCH (16:00)
[2016-08-01] MEDS ORDERED: VASOPRESSIN 20 UNIT/ML VIAL ONE (19:57)
[2016-08-02] MEDS: INSULIN LISPRO 1 UNIT/0.01 ML UNIT SQ SCH ×2 (00:58→05:22)
[2016-08-02] MEDS: 0.9 % SODIUM CHLORIDE 1,000 ML IV SCH ×3 (01:08→06:26)
[2016-08-02] MEDS: MIDAZOLAM PF 50 MG in 0.9 % SODIUM CHLORIDE 90 ML IV SCH ×2 (03:35→08:48)
[2016-08-02] MEDS: 0.9 % SODIUM CHLORIDE 10 ML SYRINGE IV SCH ×3 (03:36→14:16)
[2016-08-02] MEDS: 0.9 % SODIUM CHLORIDE 250 ML IV SCH ×4 (03:36→14:15)
[2016-08-02] MEDS: IPRATROPIUM/ALBUTEROL 3 ML AMPUL.NEB NEB SCH ×2 (03:41→06:39)
[2016-08-02] MEDS: VASOPRESSIN 20 UNIT in DEXTROSE 5% IN WATER 99 ML IV SCH ×2 (04:28→16:23)
[2016-08-02] MEDS: ALBUMIN HUMAN 25 GM/100 ML BAG IV SCH ×2 (05:00→12:00)
[2016-08-02] MEDS: METOCLOPRAMIDE 10 MG/2 ML VIAL IV SCH ×2 (05:01→12:00)
[2016-08-02] MEDS: metroNIDAZOLE 500 MG/100 ML BAG IV SCH ×2 (05:01→12:33)
[2016-08-02] MEDS: ACETAMINOPHEN 1,000 MG/100 ML BOTTLE IV SCH ×2 (05:01→12:10)
[2016-08-02] MEDS: PANTOPRAZOLE 40 MG VIAL IV SCH ×2 (05:01→16:30)
[2016-08-02 06:15] LABS: Mean Cell Volume 92.1 fL (80.0-100.0); Mean Corpuscular HGB Conc 31.3 g/dL (31.0-36.0); Mean Corpuscular Hemoglobin 28.8 pg (26.0-34.0); Platelet Count 322 K/mcL (140-440); Red Cell Distribution Width 17.2 % (11.5-14.5)
[2016-08-02 06:55] LABS: ALT/SGPT 12 U/l (0-40); Albumin 3.3 gm/dL (3.2-5.2); Albumin/Globulin Ratio 2.4 (1.0-2.3); Alkaline Phosphatase 74 U/L (39-117); Bilirubin,Direct < 0.2 mg/dL (0.0-0.3); Blood Urea Nitrogen 8 mg/dl (8-23); Gamma Glutamyl Transpeptidase 9 U/L (5-36); Magnesium 2.1 mg/dL (1.6-2.5); Phosphorous 2.2 mg/dL (2.7-4.5); Uric Acid 1.8 mg/dL (2.5-8.0)
[2016-08-02 07:46] LABS: Anisocytosis 1+ (NONE SEEN); Band Neutrophils % 4 % (0-10); Eosinophils % (Manual) 1 % (0-7); Lymphocytes % 1 % (15-49); Monocytes % (Manual) 2 % (1-9); Platelet Estimate NORMAL (NORMAL); RBC Morphology ABNORMAL (NORMAL); Segmented Neutrophils % 92 % (38-78)
--- NOTE | 2016-08-02 08:27 | XRay Report ---
CLINICAL INFORMATION: Follow up infiltrate on mechanical ventilation COMPARISON: 08/01/2016 FINDINGS: Moderate cardiomegaly is unchanged. Mediastinum is unremarkable. Lines and tubes in stable satisfactory position. There is now dense consolidation of the entire left lower lobe with a small left pleural effusion. Moderate patchy infiltrate or atelectasis in the right mid/lower lung with small right pleural effusion has worsened slightly IMPRESSION: 1. Complete dense consolidation atelectasis left lower lobe with small left pleural effusion. This is typically due to mucous plug in the left lower lobe bronchus 2. Moderate sized patchy basilar atelectasis in the right mid and lower lung field with small right pleural effusion worsening slightly Interpreted and Authenticated by: Rm Moss 08/02/16
[2016-08-02] MEDS: fentaNYL 2,500 MCG in 0.9 % SODIUM CHLORIDE 200 ML IV SCH (08:50)
[2016-08-02] MEDS: CHLORHEXIDINE GLUCONATE 1 ML ORAL.SOL SWABMOUTH SCH (09:20)
[2016-08-02] MEDS: FLUCONAZOLE 400 MG/200 ML BAG IV SCH (09:47)
[2016-08-02] MEDS ORDERED: DEXTROSE 50% 50 ML VIAL IV PRN (09:50)
--- NOTE | 2016-08-02 10:14 | Internal Med Progress Note ---
Medical - PN: Subj Patient information: Note initiated : 08/02/16 at 10:10 am Service Date, if different from initiated Date: [] Patient: Alice Maradiaga 76 y/o F admitted on 07/30/16 for Abdominal Pain. Chief Complaint: [] Interval history: 07/30 patient admitted with perforated bowel peritonitis and septic shock. Admitted to ICU. Underwent operative intervention around midnight. Postoperative mechanical ventilation. On Levophed broad antibiotic coverage/ crystalloids. Close urinary output monitoring. Critically ill. Leslie score 18 07/31- patient mechanical ventilation on Levophed/crystalloids with map at goal. Improving urine output from near anuria to 20-25 cc an hour. severe sepsis with bandemia 67%. low magnesium/phosphorus on IV replacement. Continue antibiotic coverage. Postop day 1. Postsurgical care as per surgery. FREDERIC output over 40 cc in 4 hours. Continue to wean the Levophed. Patient continues to be critically ill 08/01- patient doing well on mechanical ventilation. generalized edema. Over 8000 cc positive. Start aggressive diuresis to improve static lung compliance. Continue pressors to keep map at goal. On Versed/fentanyl for ICU sedation. Peak pressure 31 plateau pr 28. No overnight events. No concerns per staff. DC IV fluids. Change potassium infusion from 500->100 cc bag delivering 40 mEq. strict I's and O's Along with daily weights. patient remains critically ill. Extensive FREDERIC/NG output. surgery on board. blood gas improved from 7.51/28- 7.33/44. interval chest imaging progressive chest infiltrates 08/02- patient on mechanical ventilation. Maintaining even I's and O's. FREDERIC drain bilious. On 32% FiO2 maintain sats around 92-94. idal volume 300. ABG 7.31/53/70 on 32% FiO2/PEEP 8. hemoglobin 7.2-ransfuse 2 unitsblood. white count down to 11 from 13. Bandemia resolved however persistent left shift. potassium 3.1-ontinue IV replacement. On TPN. on Versed/fentanyl prior to sedation. On vasopressin to keep map at goal. Good urine output. No overnight events including telemetry events or life-threatening hemodynamics. MAXIMUM TEMPERATURE 100. - Constitutional Vitals: Vital Signs Temp Pulse Resp BP Pulse Ox 98.7 F 89 16 108/61 94 08/02/16 09:00 08/02/16 09:00 08/02/16 09:00 08/02/16 09:00 08/02/16 09:00 Period Temp Pulse Resp BP Sys/Bess Pulse Ox Last 24 Hr 94.4 F-99.1 F 82-112 16-16 86-134/53-72 88-98 Intake and Output 08/01/16 08/02/16 08/02/16 21:59 05:59 13:59 Intake Total 1366 / 1366 760 / 760 279 / 279 Output Total 1155 / 1155 525 / 525 380 / 380 Balance 211 / 211 235 / 235 -101 / -101 Weight 163 lb 9.6 oz Intake & Output: Intake & Output 08/01/16 08/02/16 08/02/16 21:59 05:59 13:59 Intake Total 1366 / 1366 760 / 760 279 / 279 Output Total 1155 / 1155 525 / 525 380 / 380 Balance 211 / 211 235 / 235 -101 / -101 Weight 163 lb 9.6 oz Intake: IV 1366 / 1366 760 / 760 279 / 279 Sodium Chloride 0.9% 250 92 / 92 ml @ 20 mls/hr IV . [id number] [facility] Rx#:[id number] Premix 1 Bag @ 25 mls/hr 250 / 250 IV MoFr@1600 MARG[facility]ITA with Intralipid 20% 250 ml Rx# :[id number] Versed 50 mg In Sodium 73 / 73 Chloride 0.9% 90 ml @ 0. 02 MG/KG/HR 2.62 mls/hr IV Q12H [facility] Rx#:[id number] Levophed 16 mg In Sodium 117 / 117 10 / 10 6 / 6 Chloride 0.9% 234 ml @ 10 MCG/MIN 9.37 mls/hr IV Q24H [facility] Rx#:[id number] Dextrose 5% in Water 250 270 / 270 ml @ 67.5 mls/hr IV ONCE ONE with Potassium Chloride 40 Meq Rx#: [id number] Vasostrict 20 Unit In 87 / 87 100 / 100 Dextrose 5% in Water 99 ml @ 0.04 UNIT/MIN 12 mls /hr IV Q8H [facility] Rx#: [id number] Output: Gastric Drainage 75 / 75 25 / 25 NG/OG 75 / 75 25 / 25 Drainage 100 / 100 115 / 115 30 / 30 Right FREDERIC Drain 100 / 100 115 / 115 Urine Catheter Amount 1055 / 1055 335 / 335 325 / 325 Medical - PN: Obj Da - Labs CBC & Chem 7: 08/02/16 04:19 08/02/16 04:19 Labs: Abnormal Lab Results 08/02/16 08/02/16 08/01/16 04:19 04:19 04:46 WBC 11.6 H RBC 2.50 L Hgb 7.2 L Hct 23.1 L RDW 17.2 H MPV 7.1 L Seg Neutrophils % 92 H Band Neutrophils % Lymphocytes % 1 L Metamyelocytes % RBC Morphology Anisocytosis 1+ A Potassium 3.1 L Chloride 110 H Carbon Dioxide 21 L Glucose 178 H 115 H Uric Acid 1.8 L Calcium 8.0 L 7.1 L Phosphorus 2.2 L Magnesium AST Total Protein 4.7 L 3.7 L Albumin 2.1 L Globulin 1.4 L 1.6 L Albumin/Globulin Ratio 2.4 H 08/01/16 07/31/16 07/31/16 04:46 04:09 04:09 WBC 13.6 H RBC 3.01 L 3.37 L Hgb 8.7 L 9.8 L Hct 27.8 L 31.1 L RDW 16.6 H 15.9 H MPV Seg Neutrophils % 19 L Band Neutrophils % 13 H 67 H Lymphocytes % 9 L 10 L Metamyelocytes % 1 H RBC Morphology Abnorm A Abnorm A Anisocytosis 1+ A 1+ A Potassium Chloride 110 H Carbon Dioxide Glucose Uric Acid Calcium 7.6 L Phosphorus 1.9 L Magnesium 1.4 L AST 41 H Total Protein 4.0 L Albumin 2.4 L Globulin 1.6 L Albumin/Globulin Ratio Meds: Medications Albuterol/Ipratropium (Duoneb) 3 ml NEB Q4HRT [facility] Last Admin: 08/02/16 06:39 Dose: 3 ml Chlorhexidine Gluconate (Peridex) 15 ml SWABMOUTH BID [facility] Last Admin: 08/02/16 09:20 Dose: 15 ml Dextrose (Dextrose 50%) 0 ml IV UD PRN PRN Reason: Hypoglycemia Diagnostic Test (Pha) (Accu-Chek) 1 each FS Q6 [facility] Hydromorphone HCl (Dilaudid) 0 mg IV Q4HP PRN PRN Reason: Pain Magnesium Sulfate (Magnesium Sulfate) 2 gm in 50 mls @ 50 mls/hr IV UD PRN PRN Reason: MG = or < 1.7 Acetaminophen (Ofirmev) 1,000 mg in 100 mls @ 200 mls/hr IV Q6 [facility] Last Infusion: 08/02/16 05:46 Dose: Infused Metronidazole (Flagyl) 500 mg in 100 mls @ 100 mls/hr IV Q6 [facility] Last Infusion: 08/02/16 06:44 Dose: Infused Levofloxacin (Levaquin) 750 mg in 150 mls @ 100 mls/hr IV Q48H [facility] Last Infusion: 08/01/16 10:55 Dose: Infused Heparin Sodium/Sodium Chloride (Heparin/Ns) 500 mls @ 0 mls/hr IV .Q0M [facility]; KVO PRN Reason: Protocol Fentanyl 2,500 mcg/ Sodium (Chloride) 250 mls @ 2.5 mls/hr IV Q24H [facility]; 25 MCG/ HR PRN Reason: Protocol Last Admin: 08/02/16 08:50 Dose: 750 mcg/hr, 75 mls/hr Fluconazole (Diflucan) 400 mg in 200 mls @ 100 mls/hr IV DAILY@1000 [facility] Stop: 08/02/16 11:59 Last Admin: 08/02/16 09:47 Dose: 100 mls/hr Norepinephrine Bitartrate 16 (mg/ Sodium Chloride) 250 mls @ 9.37 mls/hr IV Q24H [facility]; 10 MCG/MIN PRN Reason: Protocol Last Titration: 08/02/16 08:10 Dose: 0 mcg/min, 0 mls/hr Sodium Chloride (Sodium Chloride 0.9%) 250 mls @ 20 mls/hr IV .[id number] [facility] Last Admin: 08/02/16 03:36 Dose: Not Given Midazolam HCl 50 mg/ Sodium (Chloride) 100 mls @ 2.62 mls/hr IV Q12H [facility]; 0.02 MG/KG/HR PRN Reason: Protocol Last Admin: 08/02/16 08:48 Dose: 0.03 mg/kg/hr, 3.93 mls/hr Potassium Chloride (Potassium Chloride) 40 meq in 100 mls @ 25 mls/hr IV UD PRN PRN Reason: K+ = or < 3.5 Albumin Human (Buminate) 25 gm in 100 mls @ 200 mls/hr IV Q6 [facility] Stop: 08/05/16 06:29 Last Infusion: 08/02/16 06:39 Dose: Infused Calcium Gluconate 5 meq/Magnesium Sulfate 8.12 meq/Potassium Phosphate 20 meq/ Multivitamins/Minerals 10 ml/Selenium 60 mcg/ Potassium Acetate 20 meq/ Amino Acids 1,038.7981 mls @ 30 mls/hr IV Q24H [facility] Last Admin: 08/01/16 15:47 Dose: 30 mls/hr Fat Emulsion Intravenous 250 (ml/ Premix) 250 mls @ 25 mls/hr IV MoFr@1600 [facility] Last Infusion: 08/02/16 03:38 Dose: Infused Sodium Chloride (Sodium Chloride 0.9%) 250 mls @ 20 mls/hr IV .[id number] [facility] Last Admin: 08/02/16 03:36 Dose: Not Given Vasopressin 20 unit/ Dextrose 100 mls @ 12 mls/hr IV Q8H [facility]; 0.04 UNIT/MIN PRN Reason: Protocol Last Admin: 08/02/16 04:28 Dose: 0.04 unit/min, 12 mls/hr Insulin Human Lispro (Humalog) 0 unit SQ Q6 [facility] PRN Reason: Protocol Metoclopramide HCl (Reglan) 10 mg IV Q6 [facility] Last Admin: 08/02/16 05:01 Dose: 10 mg Ondansetron HCl (Zofran) 4 mg IV Q4-6HP PRN PRN Reason: Nausea And Vomiting Pantoprazole Sodium (Protonix) 40 mg IV Q10H [facility] Last Admin: 08/02/16 05:01 Dose: 40 mg Sodium Chloride (Saline Flush) 10 ml IV Q8 [facility] Last Admin: 08/02/16 05:47 Dose: 10 ml Sodium Chloride (Saline Flush) 10 ml IV UD PRN PRN Reason: lab draws/meds Medical - PN: A/P - Time Spent With Patient Total time spent is greater than 50% in coordination of care (as documented) at patient's floor/unit and/or counseling patient: Greater than 35 minutes (critical care time) (1) Septic shock Status: Acute Assessment and plan: * gastric perforation with acute peritonitis-status post operative repair. Postop care per Dr. Whipple surgery Issues managed by hospitalist service * Septic shock-on vasopressin to keep map at goal. multiple ectopies on Levophed and has discontinued. * Hypoxic respiratory failure -continue mechanical ventilation per protocol. target PCO2 around 60 in light of restrictive lung disease and history of CO2 retention. anticipate weaning trials in 48 hours. * Acute peritonitis secondary to bowel perforation- continue broad antibiotic/ antifungal coverage. leukocytosis at 11. Bandemia resolved * Left lower lobe consolidation secondary to likely mucous plug- continue mechanical ventilation. A worsening hypoxia requiring bronchoscopy. Continue aggressive CPT/Mucomyst. * Anemia secondary to blood loss/sepsis induced marrow suppression- hemoglobin down from 10-7.2. Transfuse 2 units PRBC. * Hypokalemia on replacement Plan * Continue mechanical ventilation per protocol * ABG/daily chest x-rays * Vasopressin to keep map at goal * 2 units PRBC transfusion * aggressive pulmonary toilet/Mucomyst/CPT * Continue electrolyte replacement as indicated * Recommend early initiation of dialysis to improve lung compliance in anticipation of extubation. Current Visit: Yes Medical - PN: Qual - VTE Deep Vein Thrombosis/Pulmonary Embolism Present on Admission: No
[2016-08-02] MEDS ORDERED: 0.9 % SODIUM CHLORIDE 250 ML IV SCH (10:15)
[2016-08-02] MEDS: NOREPINEPHRINE BITARTRATE 16 MG in 0.9 % SODIUM CHLORIDE 234 ML IV SCH (11:36)
[2016-08-02] MEDS ORDERED: INSULIN LISPRO 1 UNIT/0.01 ML UNIT SQ SCH (12:00)
--- NOTE | 2016-08-02 14:02 | General Surgery Progress Note ---
Subjective Narrative: Note initiated : 08/02/16 at 1:55 pm Service Date, if different from initiated Date: [] Patient: Alice Maradiaga 76 y/o F admitted on 07/30/16 for Abdominal Pain. Chief Complaint: [patient has had a relatively stable past 24 hours. Her pressers were changed from Levaquin to vasopressin during the night and this has been gradually decreased with stable blood pressure. The documented CVP is 20 however the CVP is in the innominate and the tip may be against the wall of the vessel. The CVP was also taken with her on the ventilator with PEEP So that it is artificially elevated. She is ventilating adequately and has been on room air previously with SaO2 in the 90% range. Her CO2 is slowly rising which is good for ventilation. Nursing staff states that when she is not fully sedated she breathes 3-4 beast above the ventilator rate. Her urine output has decreased howeverthis is probablyin response to the end of the effect of the Lasix that was given yesterday. We'll monitor urine output closely and as long as her urine and creatinine are stable we can ayesha 20-30 cc urine output per hour. She has increased atelectasis of the left and right lung and her effusion is greater. She does have more moist ventilatory sounds that she had on yesterday. Her peripheral edema is not worse.] Objective Temp Pulse Resp BP Pulse Ox 98.6 F 80 16 121/61 95 08/02/16 12:00 08/02/16 12:00 08/02/16 12:00 08/02/16 12:00 08/02/16 12:00 - Additional Data Intake & Output - Last 24 hours: Intake & Output 07/31/16 08/01/16 08/02/16 08/03/16 05:59 05:59 05:59 05:59 Intake Total 5710 / 5710 4974.1818 / 4974.1818 4230 / 4230 473 / 473 Output Total 440 / 440 1810 / 1810 2995 / 2995 625 / 625 Balance 5270 / 5270 3164.1818 / 3164.1818 1235 / 1235 -152 / -152 Weight 144 lb 8 oz 159 lb 9.6 oz 163 lb 9.6 oz - Additional Exam patient is sedated and on the ventilator. She does not respond to stimulation She is not having spontaneous unassisted breaths HEENT no change; scleredema ( Neck supple Chestcoarse moist tubular breath soundsin all lung mendoza; no wheezes Heart regular rhythm with rate about 80 without ectopy Abdomen distended and quiet without active bowel sounds FREDERIC drainage is clear and volume is decreasing incision looks good Extremities 1-2+ edema diffusely associated with her anasarca Neuro not assessable due to level of sedation; no spontaneous movement - Labs 08/02/16 04:19 08/02/16 04:19 Diabetes panel 08/02/16 Range/Units 04:19 Sodium 141 (133-145) mmol/L Potassium 3.1 L (3.3-5.1) mmol/L Chloride 108 (96-108) mmol/L Carbon Dioxide 24 (22-30) mmol/L BUN 8 (8-23) mg/dl Creatinine 0.7 (0.6-1.1) mg/dl Glucose 178 H (70-105) mg/dL Calcium 8.0 L (8.6-10.4) mg/dl AST 15 (0-37) U/l ALT 12 (0-40) U/l Alkaline Phosphatase 74 (39-117) U/L Total Protein 4.7 L (5.9-8.4) gm/dL Albumin 3.3 (3.2-5.2) gm/dL Triglycerides 52 (<150) mg/dl Calcium panel 08/02/16 Range/Units 04:19 Calcium 8.0 L (8.6-10.4) mg/dl Phosphorus 2.2 L (2.7-4.5) mg/dL Albumin 3.3 (3.2-5.2) gm/dL Pituitary panel 08/02/16 Range/Units 04:19 Sodium 141 (133-145) mmol/L Potassium 3.1 L (3.3-5.1) mmol/L Chloride 108 (96-108) mmol/L Carbon Dioxide 24 (22-30) mmol/L BUN 8 (8-23) mg/dl Creatinine 0.7 (0.6-1.1) mg/dl Glucose 178 H (70-105) mg/dL Calcium 8.0 L (8.6-10.4) mg/dl Adrenal panel 08/02/16 Range/Units 04:19 Sodium 141 (133-145) mmol/L Potassium 3.1 L (3.3-5.1) mmol/L Chloride 108 (96-108) mmol/L Carbon Dioxide 24 (22-30) mmol/L BUN 8 (8-23) mg/dl Creatinine 0.7 (0.6-1.1) mg/dl Glucose 178 H (70-105) mg/dL Calcium 8.0 L (8.6-10.4) mg/dl Total Bilirubin 0.2 (0.0-1.0) mg/dL AST 15 (0-37) U/l ALT 12 (0-40) U/l Alkaline Phosphatase 74 (39-117) U/L Total Protein 4.7 L (5.9-8.4) gm/dL Albumin 3.3 (3.2-5.2) gm/dL - Imaging Chest x-ray: report reviewed, image reviewed Medical - PN: A/P - Time Spent With Patient Total time spent is greater than 50% in coordination of care (as documented) at patient's floor/unit and/or counseling patient: (1) Chronic respiratory failure with hypoxia and hypercapnia Status: Acute Assessment and plan: STABLE ON VENTILATORY SUPPORT Gradually improving Current Visit: Yes (2) Perforated gastric ulcer Status: Acute Assessment and plan: RECOVERING UNEVENTFULLY FROM LAPAROTOMY WITH EXPECTED RESPONSE primarily serous fluid and [place] drain No purulence noted Current Visit: Yes (3) COPD with acute exacerbation Status: Acute Current Visit: No (4) Subclavian steal syndrome Status: Acute Current Visit: No (5) Hypertension, essential Problem details: 1986 Status: Chronic Current Visit: No
[2016-08-02] MEDS ORDERED: ACETYLCYSTEINE 800 MG/4 ML VIAL NEB SCH (15:00)
[2016-08-02] MEDS ORDERED: MVI IV SCH (15:30)
[2016-08-02] MEDS ORDERED: CALCIUM GLUCONATE IV SCH (15:30)
[2016-08-02] MEDS ORDERED: [UNRECOGNIZED DRUG - OTHER] IV SCH (15:30)
[2016-08-02] MEDS ORDERED: POTASSIUM PHOSPHATE IV SCH (15:30)
[2016-08-02] MEDS ORDERED: MAGNESIUM SULFATE IV SCH (15:30)
[2016-08-02] MEDS ORDERED: ALBUTEROL SULFATE 2.5 MG/3 ML NEBULIZER ONE (15:50)
--- NOTE | 2016-08-02 16:33 | Transfer Summary ---
Transfer Discharge Sum: Prov Patient information: Note initiated : 08/02/16 at 4:25 pm Service Date, if different from initiated Date: [] Patient: Ailce Maradiaga 76 y/o F admitted on 07/30/16 for Abdominal Pain. Chief Complaint: [] Date of admission: 07/30/16 16:25 Discharge Date: 08/02/16 Primary care physician: [f_Reg Prim Care Provider] Attending physician on admission: Melina Whipple Consults: Kevin Marquez hospitalist Transfer Discharge Sum: Diag - Discharge Diagnosis (1) Septic shock Status: Acute Transfer Discharge Sum: Med - Medications Active and Home Medications: Home Medications aspirin 81 mg tablet,delayed release 81 mg PO QDAY #30 tab 05/22/15 [Rx Confirmed 07/30/16] multivit with ipdbgmut-fdqq-IR-lutein 8 mg iron-400 mcg-300 mcg tablet 1 tab PO QDAY tab 05/22/15 [History Confirmed 07/30/16] beclomethasone dipropionate 80 mcg/actuation aerosol inhaler 160 mcg INHALATION BID #8.7 g 12/05/15 [Rx Confirmed 07/30/16] gabapentin 400 mg capsule 400 mg PO TID #90 cap 04/03/16 [Rx Confirmed 07/30/16] diclofenac sodium 75 mg tablet,delayed release 75 mg PO BID #60 tab 04/23/16 [ Rx Confirmed 07/30/16] Calcium Carb/D3/Magnesium/Zinc [Sjimgdm-Ieh-Wwts-Vit D Tablet] 1 each PO DAILY 06/17/16 [History Confirmed 07/30/16] Lactase [Lactaid Fast Act] 9,000 unit PO AC 06/17/16 [History Confirmed 07/30/16 ] Potassium Chloride 10 meq PO DAILY 06/17/16 [History Confirmed 07/30/16] Psyllium Husk [Daily Fiber] 1 tab PO DAILY 06/17/16 [History Confirmed 07/30/16] diphenhydrAMINE [Benadryl] 25 mg PO HSP PRN 06/17/16 [History Confirmed 07/30/16 ] Benzonatate [Tessalon] 100 mg PO QIDP PRN #28 capsule 06/24/16 [Rx Confirmed ] Budesonide [Pulmicort] 1 mg IH BID #60 ampul.neb 06/24/16 [Rx Confirmed 07/30/16 ] Ipratropium/Albuterol [Duoneb] 3 ml NEB Q6HP #240 ampul.neb 06/24/16 [Rx Confirmed 07/30/16] propranolol 10 mg tablet 10 mg PO QDAY tab 07/10/16 [History Confirmed 07/30/16 ] torsemide 20 mg tablet 20 mg PO BID tab 07/10/16 [History Confirmed 07/30/16] albuterol sulfate 2.5 mg/3 mL (0.083 %) solution for nebulization 2.5 mg INHALATION Q4H PRN 30 Days 07/17/16 [Rx Confirmed 07/30/16] atorvastatin 20 mg tablet 20 mg PO QDAY #30 tab 07/28/16 [Rx Confirmed 07/30/16] Clopidogrel Bisulfate [Plavix] 75 mg PO DAILY 07/30/16 [History Confirmed ] portable oxygen 2 lf FACUNDO DAILY 07/30/16 [History Confirmed 07/30/16] Active Medications Acetylcysteine (Mucomyst) 600 mg NEB TID [facility] Albuterol/Ipratropium (Duoneb) 3 ml NEB Q4HRT [facility] Last Admin: 08/02/16 06:39 Dose: 3 ml Chlorhexidine Gluconate (Peridex) 15 ml SWABMOUTH BID [facility] Last Admin: 08/02/16 09:20 Dose: 15 ml Dextrose (Dextrose 50%) 0 ml IV UD PRN PRN Reason: Hypoglycemia Diagnostic Test (Pha) (Accu-Chek) 1 each FS Q6 [facility] Last Admin: 08/02/16 12:01 Dose: 1 each Hydromorphone HCl (Dilaudid) 0 mg IV Q4HP PRN PRN Reason: Pain Magnesium Sulfate (Magnesium Sulfate) 2 gm in 50 mls @ 50 mls/hr IV UD PRN PRN Reason: MG = or < 1.7 Acetaminophen (Ofirmev) 1,000 mg in 100 mls @ 200 mls/hr IV Q6 [facility] Last Admin: 08/02/16 12:10 Dose: 100 mls/hr Metronidazole (Flagyl) 500 mg in 100 mls @ 100 mls/hr IV Q6 [facility] Last Admin: 08/02/16 12:33 Dose: 100 mls/hr Levofloxacin (Levaquin) 750 mg in 150 mls @ 100 mls/hr IV Q48H [facility] Last Infusion: 08/01/16 10:55 Dose: Infused Heparin Sodium/Sodium Chloride (Heparin/Ns) 500 mls @ 0 mls/hr IV .Q0M [facility]; KVO PRN Reason: Protocol Fentanyl 2,500 mcg/ Sodium (Chloride) 250 mls @ 2.5 mls/hr IV Q24H [facility]; 25 MCG/ HR PRN Reason: Protocol Last Admin: 08/02/16 08:50 Dose: 750 mcg/hr, 75 mls/hr Norepinephrine Bitartrate 16 (mg/ Sodium Chloride) 250 mls @ 9.37 mls/hr IV Q24H [facility]; 10 MCG/MIN PRN Reason: Protocol Last Admin: 08/02/16 11:36 Dose: Not Given Sodium Chloride (Sodium Chloride 0.9%) 250 mls @ 20 mls/hr IV .[id number] [facility] Last Admin: 08/02/16 12:38 Dose: Not Given Midazolam HCl 50 mg/ Sodium (Chloride) 100 mls @ 2.62 mls/hr IV Q12H [facility]; 0.02 MG/KG/HR PRN Reason: Protocol Last Titration: 08/02/16 11:11 Dose: 0.01 mg/kg/hr, 2 mls/hr Potassium Chloride (Potassium Chloride) 40 meq in 100 mls @ 25 mls/hr IV UD PRN PRN Reason: K+ = or < 3.5 Albumin Human (Buminate) 25 gm in 100 mls @ 200 mls/hr IV Q6 [facility] Stop: 08/05/16 06:29 Last Infusion: 08/02/16 12:37 Dose: Infused Fat Emulsion Intravenous 250 (ml/ Premix) 250 mls @ 25 mls/hr IV MoFr@1600 [facility] Last Infusion: 08/02/16 03:38 Dose: Infused Sodium Chloride (Sodium Chloride 0.9%) 250 mls @ 20 mls/hr IV .[id number] [facility] Last Admin: 08/02/16 14:15 Dose: 20 mls/hr Vasopressin 20 unit/ Dextrose 100 mls @ 12 mls/hr IV Q8H [facility]; 0.04 UNIT/MIN PRN Reason: Protocol Last Admin: 08/02/16 16:23 Dose: Not Given Sodium Chloride (Sodium Chloride 0.9%) 250 mls @ 20 mls/hr IV .[id number] [facility] Stop: 08/02/16 22:44 Last Admin: 08/02/16 13:05 Dose: 20 mls/hr Calcium Gluconate 10 meq/Magnesium Sulfate 8.12 meq/Potassium Phosphate 40 meq/ Multivitamins/Minerals 10 ml/Selenium 60 mcg/ Potassium Acetate 40 meq/ Amino Acids 1,064.0962 mls @ 45 mls/hr IV Q23H [facility] Last Admin: 08/02/16 16:08 Dose: 45 mls/hr Insulin Human Lispro (Humalog) 0 unit SQ Q6 [facility] PRN Reason: Protocol Last Admin: 08/02/16 12:02 Dose: Not Given Metoclopramide HCl (Reglan) 10 mg IV Q6 [facility] Last Admin: 08/02/16 12:00 Dose: 10 mg Ondansetron HCl (Zofran) 4 mg IV Q4-6HP PRN PRN Reason: Nausea And Vomiting Pantoprazole Sodium (Protonix) 40 mg IV Q10H [facility] Last Admin: 08/02/16 05:01 Dose: 40 mg Sodium Chloride (Saline Flush) 10 ml IV Q8 [facility] Last Admin: 08/02/16 14:16 Dose: 10 ml Sodium Chloride (Saline Flush) 10 ml IV UD PRN PRN Reason: lab draws/meds Transfer Discharge Sum: Hosp Hospital course: TRANSFER DIAGNOSIS * Gastric perforation with acute peritonitis-status post operative repair. Postop care per Dr. Whipple surgery. Bilious FREDERIC output. started on TPN per surgery Issues managed by hospitalist service * Septic shock- weaned off vasopressors. Map at goal. * Hypoxic respiratory failure - worsening in light of left lower lobe collapse and likely bronchial mucous plug not responding to CPT/aggressive suctioning/ Mucomyst/aggressive pulmonary toilet. ttempting to transfer to tertiary Center for pulmonology consultation * Acute peritonitis secondary to bowel perforation- clinically improving. continue broad antibiotic/ antifungal coverage. leukocytosis at 11. Bandemia resolved. * Left lower lobe consolidation secondary to likely mucous plug- atient may require bronchoscopy in light of failed CPT/Mucomyst/pulmonary toiletand persistent hypoxia/ atelectasis on repeat chest imaging. * Anemia secondary to blood loss/sepsis induced marrow suppression- hemoglobin down from 10-7.2. status post 1 unit transfusion. * Hypokalemia on IV replacement * nutrition on TPN BRIEF HOSPITAL COURSE Ms. Maradiaga is a 76 year old female admitted under surgical service with bowel perforation/peritonitis 07/30 patient admitted with perforated bowel peritonitis and septic shock. hospitalist service consulted for management of sepsis and medical issues. Admitted to ICU. Underwent operative intervention around midnight. Postoperative mechanical ventilation. On Levophed broad antibiotic coverage/ crystalloids. Close urinary output monitoring. Critically ill. Resighini score 18 07/31- patient mechanical ventilation on Levophed/crystalloids with map at goal. Improving urine output from near anuria to 20-25 cc an hour. severe sepsis with bandemia 67%. low magnesium/phosphorus on IV replacement. Continue antibiotic coverage. Postop day 1. Postsurgical care as per surgery. FREDERIC output over 40 cc in 4 hours. Continue to wean the Levophed. Patient continues to be critically ill 08/01- patient doing well on mechanical ventilation. generalized edema. Over 8000 cc positive. Start aggressive diuresis to improve static lung compliance. Continue pressors to keep map at goal. On Versed/fentanyl for ICU sedation. Peak pressure 31 plateau pr 28. No overnight events. No concerns per staff. DC IV fluids. Change potassium infusion from 500->100 cc bag delivering 40 mEq. strict I's and O's Along with daily weights. patient remains critically ill. Extensive FREDERIC/NG output. surgery on board. blood gas improved from 7.51/28- 7.33/44. interval chest imaging progressive chest infiltrates 08/02- patient on mechanical ventilation. Maintaining even I's and O's. FREDERIC drain bilious. Sats around 92-94. Tidal volume 300. ABG 7.31/53/70 on 32% FiO2 /PEEP 8. hemoglobin 7.2-transfuse 2 units blood. WBC down to 11 from 13. Bandemia resolved however persistent left shift. potassium 3.1-continue IV replacement. On TPN. on Versed/fentanyl for sedation. On vasopressin to keep map at goal. Good urine output. No overnight events including telemetry events. MAXIMUM TEMPERATURE 100. 2/25-15:30 - patient fighting ventilator. Significant elevation in peak pressure ~50. Likely secondary to airway occlusion from mucus plugging. Patient failing to respond to aggressive CPT/Mucomyst and suctioning. Patient had to be bag-ventilated temporarily to achieve oxygenation. Case discussed with family about critical nature in light of restrictive lung disease and likely mucous plug causing left lower lobe collapse as evident on repeat x-ray. Patient may need bronchoscopy due inability to continue mechanical ventilation and bronchial mucous plugging Also in light of severe scoliosis and restrictive lung disease extubation will be difficult. I discussed the case with Dr. Whiplpe surgery and he was agreeable for patient to be transferred to tertiary Center for further management under pulmonology service. Case discussed with [facility] register repairer Dr. Chavez and really appreciate his help in accepting this patient for further management. Patient will be transferred via air ambulance - Time Spent with Patient Total time spent providing and/or coordinating transfer services: Greater than 30 minutes Transfer Discharge Sum: Exam - Constitutional Vitals: Vital Signs Temp Pulse Pulse Pulse Resp Resp BP 08/02/16 14:00 98.4 F 77 16 129/64 08/02/16 13:00 98.4 F 79 16 115/61 08/02/16 12:00 98.6 F 80 16 16 121/61 08/02/16 11:00 98.7 F 91 H 16 144/71 08/02/16 10:00 98.7 F 88 16 128/66 08/02/16 09:05 16 08/02/16 09:00 98.7 F 89 16 108/61 08/02/16 08:00 98.6 F 96 H 16 121/68 08/02/16 07:04 08/02/16 07:00 98.5 F 92 H 16 133/68 08/02/16 06:50 95 H 16 16 08/02/16 06:00 98.6 F 97 H 16 114/59 08/02/16 05:46 98.6 F 08/02/16 05:25 16 08/02/16 05:01 98.8 F 08/02/16 05:00 98.7 F 100 H 16 120/62 08/02/16 04:00 99.0 F 90 16 101/59 08/02/16 03:47 88 16 08/02/16 03:42 16 08/02/16 03:00 99.1 F 96 H 16 134/69 08/02/16 02:00 99.1 F 94 H 16 129/68 08/02/16 01:13 16 08/02/16 01:00 98.9 F 97 H 16 121/64 08/02/16 00:14 98.9 F 08/02/16 00:00 99.0 F 100 H 16 118/63 08/01/16 23:52 94 H 16 08/01/16 23:29 99.1 F 08/01/16 23:09 08/01/16 23:06 16 08/01/16 23:00 99.1 F 94 H 16 126/61 08/01/16 22:00 99.0 F 97 H 16 113/59 08/01/16 21:05 16 08/01/16 21:00 98.9 F 100 H 16 108/60 08/01/16 20:00 98.9 F 100 H 16 110/59 08/01/16 19:56 16 08/01/16 19:53 102 H 16 08/01/16 19:00 98.7 F 101 H 16 86/53 08/01/16 18:00 98.5 F 107 H 16 90/57 08/01/16 17:00 98.3 F 107 H 16 16 95/58 Pulse Ox Pulse Ox 08/02/16 14:00 94 08/02/16 13:00 96 08/02/16 12:00 96 95 08/02/16 11:00 93 08/02/16 10:00 94 08/02/16 09:05 93 08/02/16 09:00 94 08/02/16 08:00 90 08/02/16 07:04 93 08/02/16 07:00 97 08/02/16 06:50 93 08/02/16 06:00 08/02/16 05:46 08/02/16 05:25 91 08/02/16 05:01 08/02/16 05:00 91 08/02/16 04:00 95 08/02/16 03:47 08/02/16 03:42 91 08/02/16 03:00 08/02/16 02:00 91 08/02/16 01:13 91 08/02/16 01:00 91 08/02/16 00:14 08/02/16 00:00 91 08/01/16 23:52 08/01/16 23:29 08/01/16 23:09 92 08/01/16 23:06 93 08/01/16 23:00 92 08/01/16 22:00 08/01/16 21:05 93 08/01/16 21:00 91 08/01/16 20:00 92 08/01/16 19:56 91 08/01/16 19:53 08/01/16 19:00 91 08/01/16 18:00 89 L 08/01/16 17:00 88 L 88 L Intake and Output 08/02/16 08/02/16 08/02/16 05:59 13:59 21:59 Intake Total 1010 / 1010 473 / 473 12 Output Total 525 / 525 665 / 665 100 / 100 Balance 485 / 485 -192 / -192 -88 / -88 Intake: IV 1010 / 1010 473 / 473 12 / 12 Sodium Chloride 0.9% 250 250 / 250 ml @ 20 mls/hr IV . [id number] [facility] Rx#:[id number] Premix 1 Bag @ 25 mls/hr 250 / 250 IV MoFr@1600 [facility] with Intralipid 20% 250 ml Rx# :[id number] Versed 50 mg In Sodium 79 / 79 Chloride 0.9% 90 ml @ 0. 02 MG/KG/HR 2.62 mls/hr IV Q12H [facility] Rx#:[id number] Levophed 16 mg In Sodium 10 / 10 6 / 6 Chloride 0.9% 234 ml @ 10 MCG/MIN 9.37 mls/hr IV Q24H [facility] Rx#:[id number] Vasostrict 20 Unit In 100 / 100 88 / 88 12 / 12 Dextrose 5% in Water 99 ml @ 0.04 UNIT/MIN 12 mls /hr IV Q8H [facility] Rx#: [id number] Output: Gastric Drainage 75 / 75 25 / 25 NG/OG 75 / 75 25 / 25 Drainage 115 / 115 100 / 100 Right FREDERIC Drain 115 / 115 100 / 100 Urine Catheter Amount 335 / 335 540 / 540 100 / 100 Transfer Discharge Sum: A/P - Problem Maintenance (1) Septic shock Status: Acute Quality Measure Queries - VTE Deep Vein Thrombosis/Pulmonary Embolism Present on Admission: No
[2016-08-02] MEDS ORDERED: POTASSIUM CHLORIDE 20 MEQ/10 ML VIAL IV ONE (17:33)
[2016-08-02] MEDS ORDERED: POTASSIUM CHLORIDE 40 MEQ in DEXTROSE 5% IN WATER 250 ML IV ONE (17:37)
--- NOTE | 2016-08-02 21:01 | XRay Report ---
CLINICAL INFORMATION: Hypoxia COMPARISON: 08/02/2016 FINDINGS: Moderate cardiomegaly is unchanged. Mediastinum is unremarkable. Endotracheal tip is too low - 17 mm above the carlton. Left IJ central line tip overlies the SVC/ right atrial junction. The left lower lobe is partially re-aerated following dense consolidation atelectasis.] Right mid and lower lung airspace disease has also improved considerably with mild residual basilar atelectasis. Small right pleural effusion persists left pleural effusion has decreased IMPRESSION: Moderate improved aeration in the left lower lobe atelectasis. Left pleural effusion has nearly resolved. Improved right lung infiltrate or atelectasis with minimal residual the right base. Small right pleural effusion is decreased Moderate stable cardiomegaly. No evidence of CHF Endotracheal tip remains too low - 17 mm above the carlton. Suggest withdrawing the ET tube 2 cm Interpreted and Authenticated by: Rm Moss 08/02/16
--- NOTE | 2016-08-05 08:39 | Operative Note ---
DATE OF OPERATION: 07/31/2016 PREOPERATIVE DIAGNOSIS: Perforated gastric ulcer. POSTOPERATIVE DIAGNOSIS: Perforated gastric ulcer. PROCEDURE: Exploratory laparotomy with Mk patch closure of perforated ulcer. SURGEON: Melina Whipple MD. ANESTHESIA: General endotracheal anesthesia. FINDINGS: Anterior perforation of distal antrum with bilious and gastric juice in peritoneal cavity. DESCRIPTION OF PROCEDURE: Under general anesthesia, the patient's abdomen was prepped and draped in the sterile field. A timeout procedure was carried out as per protocol. Upper midline incision was made. Upon entering the peritoneal cavity, there was large volume of bilious and gastric juice in the upper abdomen. It was interesting that there was no major inflammatory reaction on the bowel, liver or peritoneum as would be expected since she had been symptomatic for at least two days. Copious irrigation of the peritoneal cavity was carried out. The colon and omentum were pulled through the incision. Inspection in the subhepatic space in the distal antrum immediately adjacent to the pylorus was a punched out 4 to 5 mm opening with spillage of bile. There was no inflammatory debris in this area suggesting that she did not have a good inflammatory response. More irrigation was carried out. The opening was closed with six sutures of 2-0 silk. The silk had to be placed back on normal-appearing tissue because the tissue immediately adjacent to the ulcer was more friable than usual. Two sutures pulled out and had to be replaced. These sutures were tied, and they were left intact. An omental patch was fashioned from the greater omentum. It was placed in the subhepatic space over the repaired hole. They were tied over the repair. The edges of the patch were sutured in six areas to hold the patch in place. Once this was done, a FREDERIC drain was placed over the lateral margin of the patch and extended beneath the upper margin of the patch into the subhepatic space to keep it directly off the repair. More irrigation was carried out until the fluid returned clear. A nasogastric tube was positioned in the stomach. Sponge, needle, instrument and blade counts were verified as correct. The fascia and peritoneum were closed with running #1 Prolene. Subcutaneous tissue was irrigated, and the subcutaneous tissue was closed with 2-0 Monocryl. The skin was closed with ariel. Drain was secured with 2-0 nylon. The patient was left intubated and paralyzed. She was transferred to the intensive care unit in critical condition. LCS:viridiana Herrera: 08/04/2016 15:15:04 Job ID: [id number] Doc ID: [id number] Melina Whipple M.D.
== END 2016-08-02 18:10 | disposition short-term general hospital (02) | DRG 853 ==
LOC: ED 08:27 → MEDSUR 16:25 → ICU 20:02
PROVIDERS: ADMIT Family Medicine Adult Medicine; ATTEND Family Medicine Adult Medicine

== ENCOUNTER 2024-01-30 13:13 | Inpatient (IN) ==
[2024-01-30] MEDS ORDERED: IOPAMIDOL 100 ML BOTTLE IV ONE (13:14)
[2024-01-30 13:54] LABS: Basophils # (Auto) 0.01 K/mcL (0.00-0.30); Basophils % (Auto) 0.1 % (0.0-2.0); Eosinophils # (Auto) 0.09 K/mcL (0.00-0.70); Eosinophils % (Auto) 0.9 % (0.0-7.0); Hematocrit 37.1 % (34.1-44.9); Hemoglobin 10.6 g/dL (11.2-15.7); Lymphocytes # (Auto) 1.04 K/mcL (1.50-4.80); Lymphocytes % (Auto) 10.5 % (15.5-49.0); Mean Cell Volume 103.9 fL (80.0-100.0); Mean Corpuscular HGB Conc 28.6 g/dL (31.0-36.0); Mean Platelet Volume 9.2 fL (8.8-12.5); Monocytes # (Auto) 0.66 K/mcL (0.10-0.90); Monocytes % (Auto) 6.7 % (1.0-12.0); Neutrophils % (Auto) 81.2 % (38.0-78.0); Platelet Count 311 K/mcL (140-440); RBC 3.57 M/mcL (3.59-5.38); Red Cell Distribution Width 12.2 % (11.5-14.5); WBC 9.9 K/mcL (4.5-11.0)
[2024-01-30 14:15] LABS: Appearance,Urine Clear (Clear); Bacteria,Urine 0 /hpf (0); Bilirubin,Urine Negative (Negative); Color,Urine Yellow; Culture Indicated,Urine No; Glucose,Urine (UA) Negative (Negative); Ketones,Urine Negative (Negative); Leukocyte Esterase,Urine Negative /uL (Negative); Mucus,Urine Mod /hpf; Nitrate,Urine Negative (Negative); PH,Urine 6.5 (5.0-9.0); Protein,Urine Negative (Negative); Specific Gravity,Urine 1.015 (1.000-1.035); Urine Blood Trace-intact ery/mcL (Negative); Urine Hyaline Cast 16 /lph (0-2); Urine RBC 0 /hpf (0-3); Urine Squamous Epithelial Cell 0 /hpf (0-4); Urine WBC 0 /hpf (0-4); Urobilinogen,Urine Normal
[2024-01-30 14:51] LABS: ALT/SGPT 10 U/L (<40); AST/SGOT 17 U/L (<32); Albumin 3.7 gm/dL (3.2-5.2); Albumin/Globulin Ratio 1.4 (1.0-2.3); Alkaline Phosphatase 95 U/L (39-117); Bilirubin,Total 0.3 mg/dL (0.1-1.0); Blood Urea Nitrogen 9 mg/dL (8-23); Carbon Dioxide 38 mmol/L (22-30); Chloride 100 mmol/L (96-108); Globulin 2.6 gm/dL (2.2-3.7); Glomerular Filtration Rate 79; Glucose 145 mg/dL (70-105); Potassium 4.1 mmol/L (3.3-5.1); Sodium 144 mmol/L (133-145); Thyroid Stimulating Hormone 0.73 uIU/mL (0.27-5.01)
[2024-01-30 14:57] LABS: Free T4 (Free Thyroxine) 1.31 ng/dL (0.93-1.70)
[2024-01-30] MEDS: IPRATROPIUM/ALBUTEROL 3 ML AMPUL.NEB NEB ONE ×2 (15:21→17:39)
[2024-01-30] MEDS: methylPREDNISolone SOD SUCC 125 MG/2 ML VIAL IV ONE (15:50)
[2024-01-30] MEDS: cefTRIAXone 1 GM VIAL IV ONE (16:33)
[2024-01-30 17:16] LABS: ABG Methemoglobin 0.2 % (0.4-1.5); Total Hemoglobin 12.4 gm/Dl (12.0-15.0); VBG Base Excess 7 (-2-3); VBG HCO3 36.6 mmol/L (24.0-28.0); VBG Oxygen Saturation 74.7 % (40.0-70.0); VBG PCO2 81.5 mmHg (41.0-51.0); VBG PH 7.27 U (7.32-7.42); VBG PO2 40.9 mmHg (25.0-40.0); VBG Total CO2 39.1 mmol/L (25.0-29.0)
[2024-01-30] MEDS: IPRATROPIUM/ALBUTEROL 3 ML AMPUL.NEB NEB SCH (19:00)
[2024-01-30] MEDS: OLANZapine 10 MG VIAL IM SCH (19:10)
[2024-01-30] MEDS: OLANZapine 10 MG VIAL ONE (19:23)
[2024-01-30] MEDS: QUEtiapine 25 MG TABLET ONE (19:28)
[2024-01-30] MEDS: QUEtiapine 25 MG TABLET PO ONE ×2 (21:10→22:19)
[2024-01-30] MEDS: ACETAMINOPHEN 325 MG TABLET PO ONE (21:10)
[2024-01-30] MEDS ORDERED: POLYETHYLENE GLYCOL 3350 17 GM PACKET PO PRN (21:52)
[2024-01-30] MEDS ORDERED: MAGNESIUM HYDROXIDE 30 ML ORAL.SUSP PO PRN (21:52)
[2024-01-30] MEDS ORDERED: SENNOSIDES 1 TABLET PO PRN (21:52)
[2024-01-30] MEDS: OLANZapine 10 MG VIAL IM PRN (22:19)
[2024-01-30] MEDS: 0.9 % SODIUM CHLORIDE 10 ML SYRINGE IV SCH (23:30)
[2024-01-31] MEDS: HEPARIN 5,000 UNIT/ML VIAL SQ SCH (03:22)
[2024-01-31 06:40] LABS: ALT/SGPT < 5 U/L (<40); AST/SGOT 17 U/L (<32); Albumin 3.5 gm/dL (3.2-5.2); Alkaline Phosphatase 95 U/L (39-117); Bilirubin,Direct < 0.2 mg/dL (0-0.3); Bilirubin,Total < 0.2 mg/dL (0.1-1.0); Blood Urea Nitrogen 13 mg/dL (8-23); Calcium 9.7 mg/dL (8.6-10.4); Carbon Dioxide 35 mmol/L (22-30); Chloride 101 mmol/L (96-108); Globulin 3.6 gm/dL (2.2-3.7); Glomerular Filtration Rate 79; Glucose 110 mg/dL (70-105); Lactate Dehydrogenase 190 U/L (135-225); Phosphorous 2.8 mg/dL (2.5-4.5); Potassium 4.5 mmol/L (3.3-5.1); Sodium 146 mmol/L (133-145); Triglycerides 100 mg/dL (<150); Uric Acid 3.7 mg/dL (2.5-8.0)
[2024-01-31 06:55] LABS: Basophils # (Auto) 0.01 K/mcL (0.00-0.30); Basophils % (Auto) 0.1 % (0.0-2.0); Eosinophils # (Auto) 0 K/mcL (0.00-0.70); Eosinophils % (Auto) 0 % (0.0-7.0); Hemoglobin 11.1 g/dL (11.2-15.7); Lymphocytes # (Auto) 0.95 K/mcL (1.50-4.80); Lymphocytes % (Auto) 11.4 % (15.5-49.0); Mean Cell Volume 104.6 fL (80.0-100.0); Mean Corpuscular HGB Conc 28.5 g/dL (31.0-36.0); Mean Platelet Volume 11.1 fL (8.8-12.5); Monocytes # (Auto) 0.34 K/mcL (0.10-0.90); Monocytes % (Auto) 4.1 % (1.0-12.0); Neutrophils % (Auto) 83.8 % (38.0-78.0); Platelet Count 267 K/mcL (140-440); RBC 3.73 M/mcL (3.59-5.38); Red Cell Distribution Width 12.2 % (11.5-14.5); WBC 8.4 K/mcL (4.5-11.0)
[2024-01-31] MEDS: 0.45 % SODIUM CHLORIDE 1,000 ML IV SCH (08:10)
[2024-01-31] MEDS: cefTRIAXone 1 GM VIAL IV SCH (09:24)
[2024-01-31] MEDS: ACETAMINOPHEN 1,000 MG/100 ML BAG IV PRN (09:33)
[2024-01-31] MEDS ORDERED: PSYLLIUM HUSK 5.8 GM PACKET PO PRN (10:17)
[2024-01-31] MEDS: QUEtiapine 25 MG TABLET PO ONE (13:26)
[2024-01-31] MEDS: OLANZapine 10 MG VIAL IM SCH (13:43)
[2024-01-31] MEDS: GABAPENTIN 100 MG CAPSULE PO SCH (14:58)
[2024-01-31] MEDS: QUEtiapine 25 MG TABLET PO SCH (20:05)
[2024-01-31] MEDS: MIRTAZAPINE 15 MG TABLET PO SCH (20:05)
[2024-01-31] MEDS: OLANZapine 10 MG VIAL IM PRN (20:29)
[2024-01-31] MEDS: OLANZapine 10 MG VIAL ONE (20:29)
[2024-01-31] MEDS: BUDESONIDE 0.5 MG/2 ML AMPUL.NEB NEB SCH (22:45)
[2024-02-01] MEDS: ONDANSETRON 4 MG/2 ML VIAL IV PRN (02:35)
[2024-02-01 08:38] LABS: Basophils # (Auto) 0.01 K/mcL (0.00-0.30); Basophils % (Auto) 0.2 % (0.0-2.0); Eosinophils # (Auto) 0.17 K/mcL (0.00-0.70); Eosinophils % (Auto) 2.6 % (0.0-7.0); Hematocrit 35.5 % (34.1-44.9); Hemoglobin 10.1 g/dL (11.2-15.7); Lymphocytes # (Auto) 1.34 K/mcL (1.50-4.80); Lymphocytes % (Auto) 20.2 % (15.5-49.0); Mean Cell Volume 103.2 fL (80.0-100.0); Mean Corpuscular HGB Conc 28.5 g/dL (31.0-36.0); Mean Platelet Volume 9.1 fL (8.8-12.5); Monocytes # (Auto) 0.46 K/mcL (0.10-0.90); Monocytes % (Auto) 6.9 % (1.0-12.0); Neutrophils % (Auto) 69.6 % (38.0-78.0); Platelet Count 329 K/mcL (140-440); RBC 3.44 M/mcL (3.59-5.38); Red Cell Distribution Width 12.5 % (11.5-14.5); WBC 6.7 K/mcL (4.5-11.0)
[2024-02-01 08:48] LABS: ALT/SGPT < 5 U/L (<40); AST/SGOT 19 U/L (<32); Albumin 3.3 gm/dL (3.2-5.2); Albumin/Globulin Ratio 1.2 (1.0-2.3); Alkaline Phosphatase 81 U/L (39-117); Bilirubin,Direct < 0.2 mg/dL (0-0.3); Bilirubin,Total < 0.2 mg/dL (0.1-1.0); Blood Urea Nitrogen 8 mg/dL (8-23); Carbon Dioxide 38 mmol/L (22-30); Chloride 103 mmol/L (96-108); Globulin 2.8 gm/dL (2.2-3.7); Glomerular Filtration Rate 83; Glucose 96 mg/dL (70-105); Lactate Dehydrogenase 143 U/L (135-225); Phosphorous 4.1 mg/dL (2.5-4.5); Potassium 3.6 mmol/L (3.3-5.1); Sodium 145 mmol/L (133-145); Triglycerides 115 mg/dL (<150); Uric Acid 3.4 mg/dL (2.5-8.0)
[2024-02-01] MEDS: ATORVASTATIN 20 MG TABLET PO SCH (10:39)
[2024-02-01] MEDS: PANTOPRAZOLE 40 MG TABLET PO SCH (10:39)
[2024-02-01] MEDS: FLUoxetine HCL 10 MG CAPSULE PO SCH (10:39)
[2024-02-01] MEDS: PROPRANOLOL 40 MG TABLET PO SCH (10:39)
[2024-02-01] MEDS: traMADol 50 MG TABLET PO ONE (13:16)
[2024-02-01] MEDS: methylPREDNISolone SOD SUCC 125 MG/2 ML VIAL IV ONE (23:33)
[2024-02-01] MEDS: NALOXONE HCL 0.4 MG/ML VIAL IV ONE (23:37)
[2024-02-01] MEDS: NALOXONE HCL 0.4 MG/ML VIAL ONE (23:59)
[2024-02-01] MEDS: methylPREDNISolone SOD SUCC 125 MG/2 ML VIAL ONE (23:59)
[2024-02-02] MEDS: IPRATROPIUM/ALBUTEROL 3 ML AMPUL.NEB NEB SCH (02:45)
[2024-02-02] MEDS: IPRATROPIUM/ALBUTEROL 3 ML AMPUL.NEB NEB ONE (03:36)
[2024-02-02 06:10] LABS: Basophils # (Auto) 0.01 K/mcL (0.00-0.30); Basophils % (Auto) 0.1 % (0.0-2.0); Eosinophils # (Auto) 0.02 K/mcL (0.00-0.70); Eosinophils % (Auto) 0.3 % (0.0-7.0); Hematocrit 38.8 % (34.1-44.9); Hemoglobin 10.8 g/dL (11.2-15.7); Lymphocytes # (Auto) 0.62 K/mcL (1.50-4.80); Lymphocytes % (Auto) 8.2 % (15.5-49.0); Mean Cell Volume 105.7 fL (80.0-100.0); Mean Corpuscular HGB Conc 27.8 g/dL (31.0-36.0); Mean Platelet Volume 9.1 fL (8.8-12.5); Monocytes # (Auto) 0.09 K/mcL (0.10-0.90); Monocytes % (Auto) 1.2 % (1.0-12.0); Neutrophils % (Auto) 88.1 % (38.0-78.0); Platelet Count 330 K/mcL (140-440); RBC 3.67 M/mcL (3.59-5.38); Red Cell Distribution Width 12.4 % (11.5-14.5); WBC 7.6 K/mcL (4.5-11.0)
[2024-02-02 06:38] LABS: ALT/SGPT < 5 U/L (<40); AST/SGOT 20 U/L (<32); Albumin 3.3 gm/dL (3.2-5.2); Alkaline Phosphatase 89 U/L (39-117); Bilirubin,Direct < 0.2 mg/dL (0-0.3); Bilirubin,Total < 0.2 mg/dL (0.1-1.0); Blood Urea Nitrogen 11 mg/dL (8-23); Calcium 8.9 mg/dL (8.6-10.4); Carbon Dioxide 35 mmol/L (22-30); Chloride 101 mmol/L (96-108); Globulin 3.2 gm/dL (2.2-3.7); Glomerular Filtration Rate 79; Glucose 118 mg/dL (70-105); Lactate Dehydrogenase 174 U/L (135-225); Phosphorous 4.2 mg/dL (2.5-4.5); Potassium 4.2 mmol/L (3.3-5.1); Sodium 141 mmol/L (133-145); Triglycerides 141 mg/dL (<150); Uric Acid 3.5 mg/dL (2.5-8.0)
[2024-02-02] MEDS: methylPREDNISolone SOD SUCC 125 MG/2 ML VIAL IV SCH ×2 (09:07→20:04)
[2024-02-02] MEDS: FUROSEMIDE 40 MG/4 ML VIAL IV ONE (12:07)
[2024-02-02] MEDS: FUROSEMIDE 40 MG/4 ML VIAL IV SCH (20:04)
[2024-02-03 08:12] LABS: Basophils # (Auto) 0.01 K/mcL (0.00-0.30); Basophils % (Auto) 0.1 % (0.0-2.0); Eosinophils # (Auto) 0 K/mcL (0.00-0.70); Eosinophils % (Auto) 0 % (0.0-7.0); Hematocrit 40.1 % (34.1-44.9); Hemoglobin 11.7 g/dL (11.2-15.7); Lymphocytes # (Auto) 1.18 K/mcL (1.50-4.80); Lymphocytes % (Auto) 12.1 % (15.5-49.0); Mean Cell Volume 99.5 fL (80.0-100.0); Mean Corpuscular HGB Conc 29.2 g/dL (31.0-36.0); Mean Platelet Volume 9.2 fL (8.8-12.5); Monocytes # (Auto) 0.69 K/mcL (0.10-0.90); Monocytes % (Auto) 7.1 % (1.0-12.0); Platelet Count 398 K/mcL (140-440); RBC 4.03 M/mcL (3.59-5.38); Red Cell Distribution Width 12.1 % (11.5-14.5); WBC 9.8 K/mcL (4.5-11.0)
[2024-02-03] MEDS: methylPREDNISolone SOD SUCC 40 MG/ML VIAL IV SCH (08:38)
[2024-02-03] MEDS: ACETAMINOPHEN 325 MG TABLET PO PRN (08:39)
[2024-02-03] MEDS ORDERED: methylPREDNISolone SOD SUCC 125 MG/2 ML VIAL IV SCH (09:00)
[2024-02-03 09:21] LABS: C-Reactive Protein 1.53 mg/dL (0.03-0.80)
[2024-02-03 09:32] LABS: ALT/SGPT < 5 U/L (<40); AST/SGOT 19 U/L (<32); Albumin 3.6 gm/dL (3.2-5.2); Albumin/Globulin Ratio 1.1 (1.0-2.3); Alkaline Phosphatase 93 U/L (39-117); Bilirubin,Direct < 0.2 mg/dL (0-0.3); Bilirubin,Total 0.2 mg/dL (0.1-1.0); Blood Urea Nitrogen 18 mg/dL (8-23); Calcium 10.1 mg/dL (8.6-10.4); Carbon Dioxide 42 mmol/L (22-30); Chloride 97 mmol/L (96-108); Globulin 3.2 gm/dL (2.2-3.7); Glomerular Filtration Rate 79; Glucose 142 mg/dL (70-105); Lactate Dehydrogenase 191 U/L (135-225); Phosphorous 0.8 mg/dL (2.5-4.5); Potassium 2.6 mmol/L (3.3-5.1); Sodium 145 mmol/L (133-145); Triglycerides 197 mg/dL (<150); Uric Acid 4.1 mg/dL (2.5-8.0)
[2024-02-03] MEDS: POTASSIUM CHLORIDE 20 MEQ PACKET PO SCH (10:13)
[2024-02-03] MEDS: POTASSIUM PHOSPHATE 40 MEQ in DEXTROSE 5% IN WATER 500 ML IV SCH (10:31)
[2024-02-03 23:36] LABS: Phosphorous 6.2 mg/dL (2.5-4.5)
[2024-02-04] MEDS: OLANZapine 10 MG VIAL IM SCH (01:49)
[2024-02-04] MEDS: OLANZapine 10 MG VIAL ONE (02:02)
[2024-02-04 07:25] LABS: Basophils # (Auto) 0 K/mcL (0.00-0.30); Basophils % (Auto) 0 % (0.0-2.0); Eosinophils # (Auto) 0.09 K/mcL (0.00-0.70); Hematocrit 36.4 % (34.1-44.9); Hemoglobin 10.6 g/dL (11.2-15.7); Lymphocytes # (Auto) 2.02 K/mcL (1.50-4.80); Lymphocytes % (Auto) 22.9 % (15.5-49.0); Mean Cell Volume 100.3 fL (80.0-100.0); Mean Corpuscular HGB Conc 29.1 g/dL (31.0-36.0); Monocytes # (Auto) 0.74 K/mcL (0.10-0.90); Monocytes % (Auto) 8.4 % (1.0-12.0); Neutrophils % (Auto) 66.8 % (38.0-78.0); Platelet Count 322 K/mcL (140-440); RBC 3.63 M/mcL (3.59-5.38); Red Cell Distribution Width 12.8 % (11.5-14.5); WBC 8.8 K/mcL (4.5-11.0)
[2024-02-04 08:02] LABS: ALT/SGPT < 5 U/L (<40); AST/SGOT 22 U/L (<32); Albumin 3.3 gm/dL (3.2-5.2); Albumin/Globulin Ratio 1.1 (1.0-2.3); Alkaline Phosphatase 80 U/L (39-117); Bilirubin,Direct < 0.2 mg/dL (0-0.3); Bilirubin,Total 0.2 mg/dL (0.1-1.0); Blood Urea Nitrogen 14 mg/dL (8-23); Calcium 8.6 mg/dL (8.6-10.4); Carbon Dioxide 42 mmol/L (22-30); Chloride 95 mmol/L (96-108); Glomerular Filtration Rate 79; Glucose 92 mg/dL (70-105); Lactate Dehydrogenase 198 U/L (135-225); Phosphorous 3.6 mg/dL (2.5-4.5); Potassium 3.3 mmol/L (3.3-5.1); Sodium 143 mmol/L (133-145); Triglycerides 230 mg/dL (<150); Uric Acid 3.6 mg/dL (2.5-8.0)
[2024-02-04] MEDS: PANTOPRAZOLE 40 MG TABLET PO SCH (08:15)
[2024-02-04] MEDS: IPRATROPIUM/ALBUTEROL 3 ML AMPUL.NEB NEB SCH (12:42)
[2024-02-05] MEDS: acetaZOLAMIDE SOD 500 MG VIAL IV ONE (08:10)
[2024-02-05] MEDS: SPIRONOLACTONE 25 MG TABLET PO ONE (08:10)
[2024-02-05 08:32] LABS: ALT/SGPT < 5 U/L (<40); AST/SGOT 25 U/L (<32); Albumin 3.5 gm/dL (3.2-5.2); Albumin/Globulin Ratio 1.2 (1.0-2.3); Alkaline Phosphatase 90 U/L (39-117); Bilirubin,Direct < 0.2 mg/dL (0-0.3); Bilirubin,Total 0.3 mg/dL (0.1-1.0); Blood Urea Nitrogen 14 mg/dL (8-23); Calcium 9.4 mg/dL (8.6-10.4); Carbon Dioxide 40 mmol/L (22-30); Chloride 97 mmol/L (96-108); Glomerular Filtration Rate 83; Glucose 103 mg/dL (70-105); Lactate Dehydrogenase 188 U/L (135-225); Phosphorous 2.2 mg/dL (2.5-4.5); Potassium 3.1 mmol/L (3.3-5.1); Sodium 144 mmol/L (133-145); Triglycerides 196 mg/dL (<150); Uric Acid 3.6 mg/dL (2.5-8.0)
[2024-02-05] MEDS: IPRATROPIUM/ALBUTEROL 3 ML AMPUL.NEB NEB PRN (08:39)
[2024-02-05] MEDS: POTASSIUM CHLORIDE 20 MEQ TABLET PO ONE (08:59)
[2024-02-05] MEDS: NEUTRA PHOS 1 PACKET PO SCH (08:59)
== END 2024-02-05 11:30 | disposition hospice, inpatient (51) | DRG 70 ==
LOC: ED 13:13 → ICU 21:31
PROVIDERS: ADMIT Student in an Organized Health Care Education/Training Program; ATTEND Internal Medicine